=== PATIENT | male | born 1980 | race Caucasian/White ===

== ENCOUNTER 2016-07-19 | Emergency (ER) | payer MEDICAID | END 2016-07-19 10:43 | disposition home or self-care (01) ==

== ENCOUNTER 2016-08-30 10:44 | Emergency (ER) | payer MEDICAID | END 2016-08-30 12:18 | disposition home or self-care (01) | DX: Z20.2 Contact with and (suspected) exposure to infections with a predominantly sexual mode of transmission (principal); F17.200 Nicotine dependence, unspecified, uncomplicated ==

== ENCOUNTER 2016-09-20 10:22 | Emergency (ER) | payer MEDICAID ==
[2016-09-20] MEDS ORDERED: CEPHALEXIN 250 MG CAPSULE PO STA (12:01)
[2016-09-20] MEDS ORDERED: CEPHALEXIN 250 MG CAPSULE PO ONE (12:08)
== END 2016-09-20 12:23 | disposition home or self-care (01) ==
DX: N30.01 Acute cystitis with hematuria (principal); F17.200 Nicotine dependence, unspecified, uncomplicated
CPT/HCPCS: 81001; 87077; 87086; 87181; 99283; A9270

== ENCOUNTER 2017-03-08 10:31 | Emergency (ER) | payer MEDICAID ==
[2017-03-08 10:46] VITALS: BP 129/84
--- NOTE | 2017-03-08 12:30 | ED Physician Documentation ---
PD HPI UPPER EXT INJURY - Stated complaint Stated Complaint: HAND LAC - Chief complaint Chief Complaint: Laceration - History obtained from History obtained from: Patient - History of Present Illness Location: Other (36-year-old gentleman who says he is up-to-date on tetanus, he is right-handed, he accidentally stabbed himself in the left hand while cutting a zip tie earlier today at home.) Review of Systems Constitutional: reports: Reviewed and negative Cardiac: reports: Reviewed and negative Respiratory: reports: Reviewed and negative PD PAST MEDICAL HISTORY - Past Medical History Past Medical History: Yes Endocrine/Autoimmune: None : None Psych: Bipolar disorder, Panic attacks, ADD/ADHD Other Past Medical History: MMR - Past Surgical History Past Surgical History: Yes - Present Medications Home Medications: Ambulatory Orders Medication Instructions Recorded Confirmed No Known Home Medications [No 03/08/17 03/08/17 Known Home Medications] - Allergies Allergies/Adverse Reactions: Allergies Allergy/AdvReac Type Severity Reaction Status Date / Time No Known Drug Allergies Allergy Verified 03/08/17 11:06 - Social History Does the pt smoke?: Yes Smoking Status: Current every day smoker Does the pt drink ETOH?: No Does the pt have substance abuse?: Yes Substance Use and Type: Marijuana - Immunizations Immunizations are current?: No Immunizations: TDAP >10years/unknown - POLST Patient has POLST: No PD ED PE NORMAL - Vitals Vital signs reviewed: Yes - General General: Alert and oriented X 3, No acute distress - Extremities Extremities: Other (He has a 1 cm puncture/laceration to the radial side of the left thenar musculature without distal neurovascular compromise. Movement of the thumb in all 4 directions is intact.) - Neuro Neuro: Alert and oriented X 3, Normal speech - Psych Psych: Normal mood, Normal affect Results - Vitals Vitals: Vital Signs - 24 hr 03/08/17 10:43 Temperature 37.0 C Heart Rate 96 Respiratory 18 Rate Blood Pressure 129/84 H O2 Saturation 90 L Oxygen O2 Source Room air PD MEDICAL DECISION MAKING - ED course ED course: I recommended suturing the laceration, the patient refused. He did said it was not as bad as he thought it was and would not have come to the hospital. It was irrigated and Steri-Stripped. Departure - Departure Disposition: 01 Home, Self Care Clinical Impression: Puncture wound Condition: Good Record reviewed to determine appropriate education?: Yes Instructions: ED Wound Puncture General Comments: Wash with soap and water, keep it covered with a dressing. Your blood pressure was elevated today on check into the emergency department. This does not mean that you have hypertension, it is a common phenomenon to come to the emergency department and have elevated blood pressure. I recommend that she see your primary care physician within the week to have it rechecked when you are feeling better.
== END 2017-03-08 12:34 | disposition home or self-care (01) ==
LOC: ED 10:31
DX: S61.411A Laceration without foreign body of right hand, initial encounter (principal); W45.8XXA Other foreign body or object entering through skin, initial encounter; Y93.89 Activity, other specified; Y92.009 Unspecified place in unspecified non-institutional (private) residence as the place of occurrence of the external cause; F17.200 Nicotine dependence, unspecified, uncomplicated; R03.0 Elevated blood-pressure reading, without diagnosis of hypertension
CPT/HCPCS: 99282; 99283

== ENCOUNTER 2017-03-15 09:32 | Emergency (ER) | payer MEDICAID ==
[2017-03-15 09:46] VITALS: BP 126/80
--- NOTE | 2017-03-15 10:10 | ED Physician Documentation ---
PD HPI UPPER EXT INJURY - Stated complaint Stated Complaint: LEFT HAND LACERATION - Chief complaint Chief Complaint: Ext Problem - History obtained from History obtained from: Patient, Family - History of Present Illness Location: Left, Hand Type of injury: Laceration Timing - onset: How many weeks ago (1) Recently seen: Emergency Dept (1 week ago.) - Additonal information Additional information: The patient is a 36-year-old male who cut his left hand the thenar eminence musculature one week ago. He was seen in the emergency department at that time but refused suture repair. He presents today for reevaluation at the insistence of his significant other. Review of Systems Constitutional: denies: Fever Skin: reports: Laceration (s) Neurologic: denies: Focal weakness, Numbness PD PAST MEDICAL HISTORY - Past Medical History Endocrine/Autoimmune: None : None Psych: Bipolar disorder, Panic attacks, ADD/ADHD - Past Surgical History Past Surgical History: Yes - Present Medications Home Medications: Ambulatory Orders Medication Instructions Recorded Confirmed No Known Home Medications [No 03/08/17 03/08/17 Known Home Medications] - Allergies Allergies/Adverse Reactions: Allergies Allergy/AdvReac Type Severity Reaction Status Date / Time No Known Drug Allergies Allergy Verified 03/08/17 11:06 - Social History Does the pt smoke?: Yes Smoking Status: Current every day smoker Does the pt drink ETOH?: No Does the pt have substance abuse?: Yes - Immunizations Immunizations are current?: No Immunizations: TDAP >10years/unknown - POLST Patient has POLST: No PD ED PE NORMAL - Vitals Vital signs reviewed: Yes (normal) - General General: Alert and oriented X 3, Well developed/nourished - HEENT HEENT: Atraumatic - Respiratory Respiratory: No respiratory distress - Derm Derm: No rash - Extremities Extremities: Other (There is a 1.5 cm laceration at the thenar eminence of the left hand. It appears to be healing, but there is a 2-3 mm gap between the wound edges. There is no surrounding erythema or lymphangitic streaking. Distal neurovascular is intact.) - Neuro Neuro: Alert and oriented X 3, No motor deficit, No sensory deficit, Normal speech Results - Vitals Vitals: Oxygen O2 Source Room air Procedures - Laceration (location) left hand Wound type: Linear, Into subcut fat Neurovascular status: Sensory intact, Motor intact Tendon involvement: Tendon intact Skin layer closure: Steri strips Other: Patient tolerated well, No complications, Neurovascular intact, Tetanus UTD PD MEDICAL DECISION MAKING - ED course Complexity details: reviewed old records, considered differential, d/w patient, d/w family ED course: The patient presented for reassessment of whether or not his wound should undergo suture repair. Given that it is 1-week-old, and is currently healing, I recommended not suturing at this late date. I did bring the wound edges together and placed Steri-Strips across the wound. I gave the patient the remainder of the Steri-Strips on the package, so he could repeat the process at home as needed. I discussed with him and his female patient registration clerk the expected course of healing, as well as potentially worrisome signs or symptoms that should prompt reevaluation in the emergency department. Departure - Departure Disposition: 01 Home, Self Care Clinical Impression: Laceration of left hand Qualifiers: Encounter type: sequela Foreign body presence: without foreign body Qualified Code(s): S61.412S - Laceration without foreign body of left hand, sequela Condition: Stable Instructions: ED Laceration Hand Comments: Keep the wound clean. Replace Steri-Strips as needed until the wound heals. Follow-up with primary physician, or return to the emergency department, if you develop any sign of infection, or otherwise worsening symptoms. Discharge Date/Time: 03/15/17 10:14
== END 2017-03-15 10:14 | disposition home or self-care (01) ==
LOC: ED 09:32
DX: S61.412A Laceration without foreign body of left hand, initial encounter (principal); W45.8XXA Other foreign body or object entering through skin, initial encounter
CPT/HCPCS: 99283

== ENCOUNTER 2017-03-23 08:33 | Emergency (ER) | payer MEDICAID ==
--- NOTE | 2017-03-23 09:20 | ED Physician Documentation ---
PD HPI MALE - Stated complaint Stated Complaint: ABD PX - Chief complaint Chief Complaint: Abd Pain - History obtained from History obtained from: Patient - History of Present Illness Timing - onset: How many days ago (2) Timing - duration: Days (2) Timing - details: Gradual onset, Still present Associated symptoms: Unable to urinate Similar symptoms before: Has not had sx before Recently seen: Not recently seen - Additional information Additional information: Previously healthy 36-year-old male has developed acute urinary retention. He states that about 2 days ago he was not able to urinate and he has not been able to urinate or have a bowel movement since. He states the urinary retention preceded the constipation. He has not had fever he denies any discharge he denies any prior problem with his prostate. He denies taking any new medications or any medications other than ibuprofen which he took after the symptoms developed. He denies use of [id number] medications or cold preparations. Review of Systems Constitutional: denies: Fever Eyes: denies: Decreased vision Ears: denies: Ear pain Nose: denies: Congestion Throat: denies: Sore throat Cardiac: denies: Chest pain / pressure, Palpitations Respiratory: denies: Dyspnea, Cough GI: reports: Abdominal Pain, Nausea, Constipation. denies: Vomiting : reports: Unable to Void Skin: denies: Rash Musculoskeletal: reports: Back pain. denies: Neck pain, Extremity pain Neurologic: denies: Generalized weakness, Focal weakness, Numbness PD PAST MEDICAL HISTORY - Past Medical History Endocrine/Autoimmune: None : None Psych: Bipolar disorder, Panic attacks, ADD/ADHD Other Past Medical History: MMR - Past Surgical History Past Surgical History: Yes - Present Medications Home Medications: Ambulatory Orders Medication Instructions Recorded Confirmed Levofloxacin [Levaquin] 500 mg PO DAILY #10 tablet 03/23/17 - Allergies Allergies/Adverse Reactions: Allergies Allergy/AdvReac Type Severity Reaction Status Date / Time No Known Drug Allergies Allergy Verified 03/23/17 08:49 - Social History Does the pt smoke?: Yes Smoking Status: Current every day smoker Does the pt drink ETOH?: No Does the pt have substance abuse?: Yes Substance Use and Type: Marijuana - Immunizations Immunizations are current?: No Immunizations: TDAP >10years/unknown - POLST Patient has POLST: No PD ED PE NORMAL - Vitals Vital signs reviewed: Yes (Tachycardic and hypertensive) - General General: Alert and oriented X 3, Well developed/nourished, Other (The patient is laying on his side in the position and appears to be in pain with silo painter tone and flattened affect.) - HEENT HEENT: Atraumatic, PERRL, EOMI - Neck Neck: Supple, no meningeal sign - Cardiac Cardiac: No murmur, Other (Tachycardia to 110) - Respiratory Respiratory: No respiratory distress, Clear bilaterally - Abdomen Abdomen: Soft, Other (Suprapubic tenderness is significant) - Back Back: No CVA TTP, No spinal TTP - Derm Derm: Normal color, Warm and dry, No rash - Extremities Extremities: No deformity, No edema - Neuro Neuro: Alert and oriented X 3, No motor deficit, No sensory deficit, Normal speech - Psych Psych: Normal mood, Normal affect Results - Vitals Vitals: Vital Signs - 24 hr 03/23/17 03/23/17 03/23/17 08:46 10:21 11:58 Temperature 37.5 C 36.5 C 36.7 C Heart Rate 110 H 107 H 117 H Respiratory 18 16 16 Rate Blood Pressure 132/82 H 101/58 L 98/58 L O2 Saturation 96 96 98 03/23/17 12:51 Temperature 37.0 C Heart Rate 90 Respiratory 17 Rate Blood Pressure 102/58 L O2 Saturation 100 Oxygen O2 Source Room air - Labs Labs: Laboratory Tests 03/23/17 03/23/17 03/23/17 09:26 09:26 09:30 WBC 4.7 L RBC 5.58 Hgb 15.5 Hct 45.3 MCV 81.2 MCH 27.7 MCHC 34.1 RDW 13.7 Plt Count 157 MPV 8.2 Neut # 4.1 Lymph # 0.4 L [place] # 0.2 Eos # 0.0 Baso # 0.0 Absolute Nucleated RBC 0.00 Nucleated RBCs 0.0 Sodium 131 L Potassium 3.6 Chloride 98 L Carbon Dioxide 22 Anion Gap 11.0 BUN 17 Creatinine 0.9 Estimated GFR (MDRD) 96 Glucose 130 H Calcium 8.9 Total Bilirubin 1.5 H AST 32 ALT 25 Alkaline Phosphatase 47 Total Protein 6.9 Albumin 4.2 Globulin 2.7 Albumin/Globulin Ratio 1.6 Lipase 19 L Urine Color DARK YELLOW Urine Clarity HAZY Urine pH 6.0 Ur Specific [place] >=1.030 H Urine Protein NEGATIVE Urine Glucose (UA) NEGATIVE Urine Ketones 15 H Urine Occult Blood SMALL H Urine Nitrite NEGATIVE Urine Bilirubin NEGATIVE Urine Urobilinogen 0.2 (NORMAL) Ur Leukocyte Esterase NEGATIVE Urine RBC 0-5 Urine WBC 6-10 H Ur Squamous Epith Cells FEW Squamous Urine Bacteria Rare Urine Mucus Marked Strands Ur Microscopic Review INDICATED Urine Culture Comments INDICATED PD MEDICAL DECISION MAKING - ED course Complexity details: reviewed old records, reviewed results, re-evaluated patient , considered differential, d/w patient ED course: 36-year-old male with a history of urinary retention has 475 mils in his bladder on catheterization. There is evidence of infection and the patient does appear dehydrated. He is given a liter of saline intravenously and 750mg Levaquin and his Martin catheter is removed. Departure - Departure Disposition: 01 Home, Self Care Clinical Impression: Urinary tract infection Qualifiers: Urinary tract infection type: acute cystitis Hematuria presence: with hematuria Qualified Code(s): N30.01 - Acute cystitis with hematuria Condition: Stable Instructions: ED UTI Cystitis Male Follow-Up: [facility] [Provider Group] Prescriptions: Levofloxacin [Levaquin] 500 mg PO DAILY #10 tablet Comments: Today in the Emergency Department your blood pressure was elevated. This can happen from the stress of the visit itself, from a current illness or circumstance or from uncontrolled hypertension. If you take blood pressure medications take your usual mediations, have your blood pressure re-checked in an appropriate setting and follow up any elevation with your primary care doctor. Discharge Date/Time: 03/23/17 13:18
[2017-03-23 09:36] LABS: BASOPHILS % (AUTO) 0.3 %; HCT - HEMATOCRIT 45.3 % (42.0-52.0); HGB - HEMOGLOBIN 15.5 g/dL (14.0-18.0); LYMPHOCYTES # (AUTO) 0.4 10^3/uL (1.5-3.5); LYMPHOCYTES % (AUTO) 8.9 %; MEAN CORPUSCULAR HEMOGLOBIN 27.7 pg (27.0-31.0); MEAN CORPUSCULAR HGB CONC 34.1 g/dL (32.0-36.0); MEAN CORPUSCULAR VOLUME 81.2 fL (80.0-94.0); MEAN PLATELET VOLUME 8.2 fL (7.4-11.4); MONOCYTES # (AUTO) 0.2 10^3/uL (0.0-1.0); MONOCYTES % (AUTO) 4.3 %; NEUTROPHILS # (AUTO) 4.1 10^3/uL (1.5-6.6); NEUTROPHILS % (AUTO) 86.5 %; RED BLOOD COUNT 5.58 10^6/uL (4.70-6.10); RED CELL DISTRIBUTION WIDTH 13.7 % (12.0-15.0); UNCORRECTED WHITE BLOOD COUNT 4.7 x10^3/uL; WHITE BLOOD COUNT 4.7 x10^3/uL (4.8-10.8)
[2017-03-23 09:45] LABS: ALBUMIN/GLOBULIN RATIO 1.6 (1.0-2.2); BILIRUBIN,TOTAL 1.5 mg/dL (0.2-1.0); CALCIUM 8.9 mg/dL (8.5-10.3); CREATININE 0.9 mg/dL (0.6-1.2); POTASSIUM 3.6 mmol/L (3.5-5.0); TOTAL PROTEIN 6.9 g/dL (6.7-8.2)
[2017-03-23 10:07] LABS: BILIRUBIN,URINE NEGATIVE (NEGATIVE); UA w/ MICROSCOPIC CHARGE YES
[2017-03-23] MEDS ORDERED: SODIUM CHLORIDE 0.9% 1,000 ML IV ONE (10:17)
[2017-03-23 10:26] LABS: UR CULTURE IF IND INDICATED
[2017-03-23 12:52] VITALS: BP 102/58
== END 2017-03-23 13:18 | disposition home or self-care (01) ==
LOC: ED 08:33
DX: N30.01 Acute cystitis with hematuria (principal); E86.0 Dehydration; R03.0 Elevated blood-pressure reading, without diagnosis of hypertension; F17.200 Nicotine dependence, unspecified, uncomplicated
CPT/HCPCS: 36415; 51702; 51798; 80053; 81001; 81003; 83690; 85025; 87086; 96365; 99283

== ENCOUNTER 2017-03-28 16:56 | Inpatient (IN) | payer MEDICAID ==
[2017-03-28] MEDS ORDERED: SODIUM CHLORIDE 0.9% 1,000 ML IV ONE (17:14)
[2017-03-28] MEDS ORDERED: HYDROmorphone 1 MG/ML CARPUJECT IVP STA ×2 (17:14→21:02)
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
[2017-03-28] MEDS ORDERED: IOPAMIDOL-300 100 ML VIAL ONE (17:31)
[2017-03-28 17:47] LABS: BASOPHILS # (AUTO) 0.1 10^3/uL (0.0-0.1); BASOPHILS % (AUTO) 0.5 %; EOSINOPHILS % (AUTO) 0.2 %; HCT - HEMATOCRIT 39.9 % (42.0-52.0); HGB - HEMOGLOBIN 13.5 g/dL (14.0-18.0); LYMPHOCYTES # (AUTO) 1.4 10^3/uL (1.5-3.5); LYMPHOCYTES % (AUTO) 7.7 %; MEAN CORPUSCULAR HEMOGLOBIN 27.4 pg (27.0-31.0); MEAN CORPUSCULAR HGB CONC 33.8 g/dL (32.0-36.0); MEAN CORPUSCULAR VOLUME 81.3 fL (80.0-94.0); MEAN PLATELET VOLUME 7.9 fL (7.4-11.4); MONOCYTES # (AUTO) 2.1 10^3/uL (0.0-1.0); MONOCYTES % (AUTO) 11.3 %; NEUTROPHILS # (AUTO) 14.6 10^3/uL (1.5-6.6); NEUTROPHILS % (AUTO) 80.3 %; RED BLOOD COUNT 4.91 10^6/uL (4.70-6.10); RED CELL DISTRIBUTION WIDTH 13.9 % (12.0-15.0); UNCORRECTED WHITE BLOOD COUNT 18.2 x10^3/uL; WHITE BLOOD COUNT 18.2 x10^3/uL (4.8-10.8)
[2017-03-28 17:57] LABS: ALBUMIN/GLOBULIN RATIO 0.8 (1.0-2.2); BILIRUBIN,TOTAL 0.9 mg/dL (0.2-1.0); CALCIUM 8.6 mg/dL (8.5-10.3); TOTAL PROTEIN 7.1 g/dL (6.7-8.2)
[2017-03-28 18:26] LABS: PLATELET ESTIMATE, MANUAL NORMAL (130-450,000) (NORMAL); PLATELET MORPHOLOGY NORMAL APPEARANCE (NORMAL)
[2017-03-28 18:27] LABS: BAND NEUTROPHILS % (MANUAL) 28 %; LYMPHOCYTES % (MANUAL) 14 %; NEUTROPHILS % (MANUAL) 49 %; TOTAL CELLS COUNTED 100
[2017-03-28 18:28] LABS: NP AUTO DIFFERENTIAL? NO; NP MAN DIFFERENTIAL? NO
[2017-03-28 19:46] LABS: BILIRUBIN,URINE NEGATIVE (NEGATIVE)
[2017-03-28 19:47] LABS: UA w/ MICROSCOPIC CHARGE YES
[2017-03-28] MEDS ORDERED: IOPAMIDOL-300 100 ML VIAL IVP ONE (19:53)
[2017-03-28 19:55] LABS: UR CULTURE IF IND NOT INDICATED; WBC,URINE 0-3 /HPF (0-3)
--- NOTE | 2017-03-28 20:42 | CT Preliminary Report ---
Exam: CT Abdomen/Pelvis W/ IMPRESSION: Marked rectal wall thickening and infiltration of adjacent fat as described; differential considerations include proctitis with extensive surrounding cellulitis predisposed to perirectal abs cess formation, versus hematoma. [facility] SITE ID: [id number]
--- NOTE | 2017-03-28 20:45 | CT Report ---
EXAM: CT ABDOMEN AND PELVIS EXAM DATE: 03/28/2017 08:04 PM. CLINICAL HISTORY: IV contrast, rectal pain, urinary reten. COMPARISONS: None. TECHNIQUE: Routine helical CT imaging was performed through the abdomen and pelvis. IV contrast: 100 cc Isovue-300. Enteric contrast: No. Reconstructions: Coronal and sagittal. In accordance with CT protocol optimization, one or more of the following dose reduction techniques w ere utilized for this exam: automated exposure control, adjustment of mA and/or KV based on patient s ize, or use of iterative reconstructive technique. FINDINGS: Lung Bases: Unremarkable. Liver: Normal. No masses. Gallbladder/Bile Ducts: Unremarkable. Spleen: Normal. Pancreas: Normal. Adrenal Glands: Normal. Kidneys: Normal. No masses or hydronephrosis. Peritoneal Cavity/Bowel: Normal. No free fluid, free air or adenopathy. No masses or acute inflammato ry process. The appendix is well visualized and normal. Pelvic Organs: Decompressed urinary bladder with Martin catheter in place. Marked diffuse heterogeneou s wall thickening of the rectum extending to the distal sigmoid colon and measuring about 16 mm in th ickness. Ill-definition of rectal margins with extensive infiltration of adjacent fat as well as thic kening of the rectal sling. Asymmetric infiltration of fat adjacent to the anus, more on the right th an on the left. No definite drainable fluid collection. No definite muscle involvement. Vasculature: No aneurysms or other significant abnormality. Bones: No significant abnormality. Other: None. IMPRESSION: Marked rectal wall thickening and infiltration of adjacent fat as described; differential considerations include proctitis with extensive surrounding cellulitis predisposed to perirectal abs cess formation, versus hematoma. [facility] Referring Provider Line: [phone] SITE ID: [id number]
[2017-03-28] MEDS ORDERED: POTASSIUM CHLOR 10 MEQ/100 ML 10 MEQ/100 ML BAG IV ONE ×2 (20:54→21:04)
[2017-03-28] MEDS ORDERED: metroNIDAZOLE 500 MG/100 ML 500 MG/100 ML BAG IV ONE (20:55)
[2017-03-28] MEDS ORDERED: PIPERACILLIN/TAZOBACTAM 3.375 GM in SODIUM CHLORIDE 0.9% MINIBAG 100 ML IV STA (20:55)
[2017-03-28] MEDS ORDERED: SODIUM CHLORIDE 0.9% MINIBAG 100 ML IV ONE (21:05)
[2017-03-28] MEDS ORDERED: metroNIDAZOLE 500 MG/100 ML 500 MG/100 ML BAG ONE (21:05)
[2017-03-28] MEDS ORDERED: HYDROmorphone 1 MG/ML CARPUJECT ONE (21:21)
[2017-03-28] MEDS ORDERED: oxyCODONE 5 MG TABLET PO PRN (21:24)
[2017-03-28] MEDS ORDERED: ZOLPIDEM 5 MG TABLET PO PRN (21:24)
[2017-03-28] MEDS ORDERED: ONDANSETRON 4 MG/2 ML VIAL IVP PRN (21:24)
[2017-03-28] MEDS ORDERED: PROCHLORPERAZINE 10 MG/2 ML VIAL IVP PRN (21:24)
[2017-03-28] MEDS: metroNIDAZOLE 500 MG/100 ML 500 MG/100 ML BAG IV SCH (22:17)
[2017-03-28] MEDS: PIPERACILLIN/TAZOBACTAM 3.375 GM in SODIUM CHLORIDE 0.9% MINIBAG 100 ML IV SCH (22:17)
[2017-03-28] MEDS: SODIUM CHLORIDE FLUSH 0.9% 10 ML SYRINGE IVP SCH (22:24)
[2017-03-28] MEDS: NS W/20 MEQ KCL 1,000 ML IV SCH (22:24)
[2017-03-28] MEDS: NICOTINE 21 MG PATCH TOP SCH (23:15)
[2017-03-28] MEDS: oxyCODONE 5 MG TABLET PO PRN (23:57)
--- NOTE | 2017-03-29 00:38 | HISTORY & PHYSICAL EXAMINATION ---
Chief Complaint - Chief Complaint Chief Complaint: Abdominal pain History of Present Illness - Admitted From Admitted From:: Emergency department - History Obtained From Records Reviewed: Yes History obtained from: Patient Exam Limitations: None - History of Present Illness HPI Comment/Other: Patient is a 36-year-old gentleman with a past medical history significant for bipolar, ADHD and OCD who presented to the emergency department with a chief complaint of abdominal pain and urinary retention. The patient presented with similar complaints 5 days earlier and at that time was thought to have a urinary tract infection and sent home with amirah Chandler. During that presentation to the emergency department the patient also had urinary retention and needed a Martin to be placed to have his urine drained. The patient stated that symptoms initially started 2 days prior to coming into the emergency department he states initially that he had abdominal pain which was localized in the suprapubic area and then began having urinary retention over the next several days he also states that he was having rectal pain. He states that since being given the antibiotics he has found no improvement in his symptoms. He is continued to have urinary retention and has not urinated since he came into the emergency department that day. He states that the pain has become intolerable. Today he was found lying on the pavement and his parents driveway because he was in so much pain he could not even crawl to their front door. He states over the last several days he has also noticed that he has had drainage from his rectum he states that it is a reddish drainage which is sometimes bloody. He states that it is foul-smelling. The patient states that all these symptoms started just a few days after he and his girlfriend placed a sex toy up his anus and into his rectum. The patient was not clear on the sterility of the sex toy. The patient is also stated that he has been having fevers, chills and cold sweats at home the last day. The patient otherwise denies any headaches, blurred vision, runny nose, sore throat, difficulty swallowing, chest pain, shortness of breath, orthopnea, PND, wheezing, increased lower extremity swelling, nausea, vomiting, diarrhea, urinary urgency, urinary frequency, dysuria, joint pain, muscle aches, joint swelling, neck stiffness, back pain, recent unintentional weight loss, he does admit to decreased appetite but denies any focal neurologic deficits. On presentation to the emergency department the patient was tachycardic and found to have a fever of 38.1, his blood pressure was stable and he was saturating well on room air. The patient's lab work revealed a leukocytosis of 18.2 with a bandemia of 28%. The patient's chemistry also revealed that the patient was dehydrated with a sodium 130 and potassium of 3.0. The patient's urinalysis showed occult blood but no WBCs or bacteria. Looking back at his urine analysis from his recent ER visit the patient did have WBCs at that time but his culture was negative. The patient was found to have urinary retention and had a Martin placed with which she drained 3 L of urine. The patient also was found to have a indurated area around his buttocks which was tender and warm with surrounding erythema. The patient underwent a CT of his abdomen and pelvis which revealed marked rectal wall thickening and infiltration of adjacent fat with differential diagnosis being proctitis with extending surrounding cellulitis predisposed to perirectal abscess formation versus hematoma. The emergency room physician spoke with the surgeon command and control who asked that the hospitalist team admit the patient and placed the patient on IV Zosyn and Flagyl. The surgeon will see the patient in the morning for possible I&D. History - Past Medical History Cardiovascular: reports: None Respiratory: reports: None Neuro: reports: None Endocrine/Autoimmune: reports: None GI: reports: None : reports: Retention Psych: reports: Bipolar disorder, Panic attacks, ADD/ADHD MRSA Hx?: No - Past Surgical History Ortho: reports: Other (Spiral fracture of the right leg status post pinning) - Family & Social History Family History: Mother: Diabetes, Type 2, Hypertension, Father: Hyperlipidemia, Hypertension, Mental Illness Living arrangement: At home Living Situation: With family Social History Notes: Patient is originally from [facility]. The patient lives between his parents home, his 3 Girlfriends Homes and his car. 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 Patient is unmarried, does not have any children. The patient smokes 1-1/2 packs per day of cigarettes. Patient occasionally drinks beer and he does smoke marijuana daily. - Substance History Use: Uses substance without health or social issues: NONE Abuse: Recurrent use of substance despite neg consequences: NONE Dependence: Experiences withdrawal or developed tolerances: NONE - POLST Patient has POLST: No POLST Status: Full Code Meds/Allgy - Home Medications Home Medications: Ambulatory Orders Medication Instructions Recorded Confirmed Levofloxacin [Levaquin] 500 mg PO DAILY #10 tablet 03/23/17 - Allergies Allergies/Adverse Reactions: Allergies Allergy/AdvReac Type Severity Reaction Status Date / Time No Known Drug Allergies Allergy Verified 03/23/17 08:49 Review of Systems - Other Findings Other Findings: A comprehensive review of systems was performed the pertinent positives and negatives are stated above in the HPI and the remainder of the review of systems is negative. Exam - Vital Signs Reviewed Vital Signs: Yes Vital Signs: Vital Signs x48h Temp Pulse Pulse Resp BP BP Pulse Ox 03/29/17 00:32 36.2 C L 117 H 18 105/62 95 03/28/17 22:19 36.7 C 112 H 20 119/71 97 03/28/17 21:44 36.7 C 111 H 16 130/76 94 - Physical Exam General Appearance: positive: No acute distress, Alert, Other (Patient is easily distracted, initially was in a fair amount of distress due to pain from urinary retention after Martin placement patient is much more comfortable but still has to lie on his side due to pain and tenderness of his buttocks) Eyes Bilateral: positive: Normal inspection, PERRL, EOMI, No lid inflammation, Conjunctivae nml, No scleral icterus ENT: positive: ENT inspection nml, Pharynx nml, Dry mucous membranes. negative : Purulent nasal drainage, Pharyngeal erythema, Oral lesions Neck: positive: Nml inspection, Thyroid nml, No JVD, Trachea midline. negative : Thyromegaly, Lymphadenopathy (R), Lymphadenopathy (L), Stiff neck, Carotid bruit, Tracheal deviation Respiratory: positive: Chest non-tender, No respiratory distress, Breath sounds nml. negative: Wheezes, Rales, Rhonchi Cardiovascular: positive: No murmur, No gallop, Tachycardia Peripheral Pulses: positive: 2+ Abdomen: positive: No organomegaly, Nml bowel sounds, No distention, Tenderness (Suprapubic tenderness that is much improved). negative: Guarding, Rebound, Hepatomegaly Rectal: positive: Tenderness, Other (Patient has indurated area around his buttocks. Area is tender, swollen and extends into the rectal area. There is surrounding erythema and area is warm to touch. There is some serosanguineous drainage from the rectal vault.) Back: positive: Nml inspection. negative: CVA tenderness (R), CVA tenderness (L ) Skin: positive: Color nml, Warm. negative: Cyanosis, Diaphoresis, Pallor Extremities: positive: Non-tender, Full ROM, Nml appearance, No pedal edema Neurologic/Psychiatric: positive: Oriented x3, CN's nml (2-12), Motor nml, Sensation nml, Mood/affect nml Conclusion/Plan - Problem List (1) Sepsis Conclusion/Plan: Patient presented to the emergency department with urinary retention, abdominal pain and rectal pain with rectal drainage. On presentation the patient was found to have leukocytosis of 18.2 with a bandemia of 28%, he was also febrile up to 38.1 and tachycardic in the 120s. Patient's lactic acid was within normal limits and blood pressure was stable. The patient was found to have cellulitis in the perirectal area and CT of abdomen pelvis revealed marked rectal wall thickening and infiltration of adjacent fat with differential considerations including proctitis with extensive surrounding cellulitis predisposed to perirectal abscess formation versus hematoma. Patient was admitted for sepsis secondary to perirectal cellulitis and likely abscess. Plan: Patient be placed on IV Zosyn and Flagyl Patient will be given IV fluids We will continue to monitor patient's vitals closely Monitor CBC and lactate Surgery consult for possible I&D Qualifiers: Sepsis type: sepsis due to unspecified organism Qualified Code(s): A41.9 - Sepsis, unspecified organism (2) Rectal cellulitis Conclusion/Plan: Patient presented with rectal pain, serosanguineous drainage which was foul- smelling. Patient appears to have rectal cellulitis with induration around the perirectal area concerning for forming phlegmon or abscess. Patient's CT also confirms the extensive cellulitis and likely forming perirectal abscess. The patient presented with sepsis. Because of this cellulitis appears to be the use of a sex toy inserted in the patient's anus. Plan: Place patient on IV Zosyn and Flagyl Give IV fluids Surgical consult for possible I&D N.p.o. after midnight for possible I&D Pain control with oxycodone and IV Dilaudid (3) Urinary retention Conclusion/Plan: Patient has had urinary retention for the last 5 days. This is likely secondary to the severity of the patient's rectal infection and abscess which likely is compressing the patient's ureters and causing urinary retention. Plan: Martin catheter placed and will remain in place until patient's infection starts to resolve. Check PSA (4) Hypokalemia Conclusion/Plan: Patient presents with potassium of 3.0 this is likely secondary to dehydration from infection and urinary retention. Patient's potassium will be replaced with his IV fluid Monitor potassium daily (5) Hyponatremia Conclusion/Plan: Patient appears to have hypovolemic hyponatremia this is likely secondary to his sepsis and dehydration. Patient will be given IV fluids We will monitor patient's sodium. (6) Tobacco abuse Conclusion/Plan: Patient has history of tobacco abuse smokes 1-1/2 packs per day. He has requested a nicotine patch while he is hospitalized. Patient was counseled on the need to quit smoking but does not seem interested at this time. Plan: Patient counseled Placed on nicotine patch daily - Lab Results Lab results reviewed: Yes Fish Bones: 03/28/17 17:24 03/28/17 17:24 Other Lab Results: Laboratory Results WBC 18.2 x10^3/uL (4.8-10.8) H 03/28/17 17:24 RBC 4.91 10^6/uL (4.70-6.10) 03/28/17 17:24 Hgb 13.5 g/dL (14.0-18.0) L 03/28/17 17:24 Hct 39.9 % (42.0-52.0) L 03/28/17 17:24 MCV 81.3 fL (80.0-94.0) 03/28/17 17:24 MCH 27.4 pg (27.0-31.0) 03/28/17 17:24 MCHC 33.8 g/dL (32.0-36.0) 03/28/17 17:24 RDW 13.9 % (12.0-15.0) 03/28/17 17:24 Plt Count 254 10^3/uL (130-450) 03/28/17 17:24 MPV 7.9 fL (7.4-11.4) 03/28/17 17:24 Neut # 14.6 10^3/uL (1.5-6.6) H 03/28/17 17:24 Lymph # 1.4 10^3/uL (1.5-3.5) L 03/28/17 17:24 [place] # 2.1 10^3/uL (0.0-1.0) H 03/28/17 17:24 Eos # 0.0 10^3/uL (0.0-0.7) 03/28/17 17:24 Baso # 0.1 10^3/uL (0.0-0.1) 03/28/17 17:24 Absolute Nucleated RBC 0.00 x10^3/uL 03/28/17 17:24 Total Counted 100 03/28/17 17:24 Band Neuts % (Manual) 28 % (0-10) H 03/28/17 17:24 Myelocytes % 1 % (-0) H 03/28/17 17:24 Nucleated RBC % 0.0 /100WBC 03/28/17 17:24 Neutrophils # (Manual) 14.0 10^3/uL (1.5-6.6) H 03/28/17 17:24 Lymphocytes # (Manual) 2.5 10^3/uL (1.5-3.5) 03/28/17 17:24 Monocytes # (Manual) 1.5 10^3/uL (0.0-1.0) H 03/28/17 17:24 Manual Slide Review Indicated 03/28/17 17:24 Platelet Estimate NORMAL (130-450,000) (NORMAL) 03/28/17 17:24 Platelet Morphology NORMAL APPEARANCE (NORMAL) 03/28/17 17:24 RBC Morph Micro Appear NORMAL APPEARANCE (NORMAL) 03/28/17 17:24 Sodium 130 mmol/L (135-145) L 03/28/17 17:24 Potassium 3.0 mmol/L (3.5-5.0) L 03/28/17 17:24 Chloride 90 mmol/L (101-111) L 03/28/17 17:24 Carbon Dioxide 29 mmol/L (21-32) 03/28/17 17:24 Anion Gap 11.0 (6-13) 03/28/17 17:24 BUN 12 mg/dL (6-20) 03/28/17 17:24 Creatinine 1.0 mg/dL (0.6-1.2) 03/28/17 17:24 Estimated GFR (MDRD) 85 (>89) L 03/28/17 17:24 Glucose 112 mg/dL (70-100) H 03/28/17 17:24 Lactic Acid 1.1 mmol/L (0.5-2.2) 03/28/17 17:24 Calcium 8.6 mg/dL (8.5-10.3) 03/28/17 17:24 Total Bilirubin 0.9 mg/dL (0.2-1.0) 03/28/17 17:24 AST 30 IU/L (10-42) 03/28/17 17:24 ALT 24 IU/L (10-60) 03/28/17 17:24 Alkaline Phosphatase 53 IU/L (42-121) 03/28/17 17:24 Total Protein 7.1 g/dL (6.7-8.2) 03/28/17 17:24 Albumin 3.1 g/dL (3.2-5.5) L 03/28/17 17:24 Globulin 4.0 g/dL (2.1-4.2) 03/28/17 17:24 Albumin/Globulin Ratio 0.8 (1.0-2.2) L 03/28/17 17:24 Lipase 29 U/L (22-51) 03/28/17 17:24 Urine Color YELLOW 03/28/17 19:43 Urine Clarity CLEAR (CLEAR) 03/28/17 19:43 Urine pH 6.0 PH (5.0-7.5) 03/28/17 19:43 Ur Specific Gateway <=1.005 (1.002-1.030) 03/28/17 19:43 Urine Protein NEGATIVE mg/dL (NEGATIVE) 03/28/17 19:43 Urine Glucose (UA) NEGATIVE mg/dL (NEGATIVE) 03/28/17 19:43 Urine Ketones NEGATIVE mg/dL (NEGATIVE) 03/28/17 19:43 Urine Occult Blood LARGE (NEGATIVE) H 03/28/17 19:43 Urine Nitrite NEGATIVE (NEGATIVE) 03/28/17 19:43 Urine Bilirubin NEGATIVE (NEGATIVE) 03/28/17 19:43 Urine Urobilinogen 0.2 (NORMAL) E.U./dL (NORMAL) 03/28/17 19:43 Ur Leukocyte Esterase NEGATIVE (NEGATIVE) 03/28/17 19:43 Urine RBC 0-5 /HPF (0-5) 03/28/17 19:43 Urine WBC 0-3 /HPF (0-3) 03/28/17 19:43 Ur Squamous Epith Cells FEW Squamous (<= Few) 03/28/17 19:43 Urine Bacteria None Seen /HPF (None Seen) 03/28/17 19:43 Ur Microscopic Review INDICATED 03/28/17 19:43 Urine Culture Comments NOT INDICATED 03/28/17 19:43 - Diagnostic Imaging Results Diagnostic Imaging Results: positive: Final report reviewed Diagnostic Imaging Results Comments: CT abdomen pelvis Impression: Marked rectal wall thickening and infiltration of adjacent fat as described; differential considerations include prostatitis with extensive surrounding cellulitis predisposed to perirectal abscess formation, versus hematoma. Issues/Core Measures - Anticipated LOS Anticipated Stay Length: 2 or more midnights - DVT/VTE - Prophylaxis VTE/DVT Prophylaxis med ordered at admit?: Yes
[2017-03-29] MEDS: HYDROmorphone 1 MG/ML CARPUJECT IVP PRN ×8 (01:46→20:49)
[2017-03-29] MEDS: metroNIDAZOLE 500 MG/100 ML 500 MG/100 ML BAG IV SCH (03:37)
[2017-03-29] MEDS: PIPERACILLIN/TAZOBACTAM 3.375 GM in SODIUM CHLORIDE 0.9% MINIBAG 100 ML IV SCH ×3 (04:39→19:09)
[2017-03-29] MEDS: NS W/20 MEQ KCL 1,000 ML IV SCH ×3 (05:36→22:57)
[2017-03-29] MEDS: SODIUM CHLORIDE FLUSH 0.9% 10 ML SYRINGE IVP SCH ×3 (05:41→20:50)
[2017-03-29 06:40] LABS: HGB - HEMOGLOBIN 13.1 g/dL (14.0-18.0)
[2017-03-29 06:42] LABS: HCT - HEMATOCRIT 38.8 % (42.0-52.0); MEAN CORPUSCULAR HEMOGLOBIN 27.4 pg (27.0-31.0); MEAN CORPUSCULAR HGB CONC 33.7 g/dL (32.0-36.0); MEAN CORPUSCULAR VOLUME 81.2 fL (80.0-94.0); MEAN PLATELET VOLUME 7.3 fL (7.4-11.4); RED BLOOD COUNT 4.78 10^6/uL (4.70-6.10); RED CELL DISTRIBUTION WIDTH 14.3 % (12.0-15.0); WHITE BLOOD COUNT 17.6 x10^3/uL (4.8-10.8)
[2017-03-29 06:58] LABS: ALBUMIN/GLOBULIN RATIO 0.9 (1.0-2.2); BILIRUBIN,TOTAL 0.8 mg/dL (0.2-1.0); BUN - BLOOD UREA NITROGEN 8 mg/dL (6-20); CALCIUM 8.2 mg/dL (8.5-10.3); CARBON DIOXIDE - CO2 29 mmol/L (21-32); CHLORIDE 96 mmol/L (101-111); CREATININE 0.8 mg/dL (0.6-1.2); GFR - MDRD 110 (>89); GLUCOSE 105 mg/dL (70-100); PHOSPHORUS 3.4 mg/dL (2.5-4.6); POTASSIUM 3.1 mmol/L (3.5-5.0); SODIUM 134 mmol/L (135-145); TOTAL PROTEIN 6.2 g/dL (6.7-8.2)
[2017-03-29] MEDS ORDERED: VANCOMYCIN PER PHARMACY 1 GM in SODIUM CHLORIDE 0.9% 250 ML IV SCH (07:00)
[2017-03-29] MEDS ORDERED: VANCOMYCIN INJ 1 GM in SODIUM CHLORIDE 0.9% 250 ML IV SCH ×2 (07:00→15:00)
[2017-03-29 07:35] LABS: PSA FREE 0.08 ng/mL (0.16-2.81)
[2017-03-29 07:36] LABS: PSA TOTAL 0.8 ng/mL (0.000-2.000)
[2017-03-29] MEDS: SODIUM CHLORIDE FLUSH 0.9% 10 ML SYRINGE IVP PRN ×3 (07:53→21:46)
[2017-03-29 08:18] LABS: CALCIUM, IONIZED 1.07 mmol/L (1.15-1.33); VBG PH 7.437 (7.31-7.41)
[2017-03-29] MEDS ORDERED: POTASSIUM CHLOR 10 MEQ/100 ML 10 MEQ/100 ML BAG IV ONE (08:55)
[2017-03-29] MEDS ORDERED: POTASSIUM CHLORIDE 20 MEQ TABLET PO SCH (09:00)
[2017-03-29] MEDS ORDERED: TEMAZEPAM 7.5 MG CAPSULE PO PRN (09:10)
[2017-03-29] MEDS: NICOTINE 21 MG PATCH TOP SCH (10:52)
[2017-03-29] MEDS: POLYETHYLENE GLYCOL 3350 17 GM PACKET PO SCH ×2 (10:56→10:58)
[2017-03-29] MEDS: ENOXAPARIN 40 MG/0.4 ML SYRINGE SUBQ SCH (10:56)
[2017-03-29] MEDS: FAMOTIDINE 20 MG TABLET PO SCH (11:01)
--- NOTE | 2017-03-29 12:42 | CONSULTATION NOTE ---
DATE OF CONSULTATION: 03/28/2017 00:00:00 REASON FOR CONSULTATION: Gluteal cellulitis. HISTORY OF PRESENT ILLNESS: This is a 36-year-old male who presented to the emergency department yesterday complaining of inability to urinate and perirectal pain. The patient was seen in the emergency department approximately 1 week ago complaining of the inability to urinate. The patient catheterized at that time and a UA performed, and he was noted to have a UTI and discharged on antibiotics. He was not compliant with his antibiotics and states that he only took 3 or 4 days of them. He began developing worsening perirectal pain, fevers and chills and a small amount of rectal bleeding and again sought attention in the emergency department. Upon reevaluation, he was noted to have a significant amount of perirectal erythema and cellulitis, particularly in the right gluteal fold. Subsequently, labs and CT scan were performed. This demonstrated an elevated white count of [address] scan findings demonstrated thickening of the rectal wall up to the level of the distal sigmoid colon with infiltration of adjacent fat. No drainable fluid collection or abscess was noted. At this point , a surgical consultation was obtained. Upon my evaluation of the patient, he states that since his admission to the hospital overnight, he is feeling better. A Martin catheter was placed and this has caused relief of his pelvic discomfort. He continues to have mild to moderate gluteal discomfort. The area of erythema has been demarcated in the emergency department. Upon further questioning, the patient does states that prior to his initial ER visit, he was having sex with his girlfriend and his girlfriend placed a silicone dildo in his anus. He had a mild amount of pain with this, but nothing severe, and did not experience any bleeding afterwards. This apparently took place approximately 10-12 days ago. PAST MEDICAL HISTORY: Significant for bipolar and ADHD, although he is not compliant with medications. PAST SURGICAL HISTORY: Denies. SOCIAL HISTORY: Unmarried. His mother is present at the bedside. 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 He denies alcohol use. He smokes marijuana daily. HOME MEDICATIONS: None. PHYSICAL EXAMINATION VITAL SIGNS: Temperature is 36.8, blood pressure 125/63, heart rate 119, respiratory rate is 18, O2 saturation 96% on room air. GENERAL: The patient is awake, alert, oriented x3, in no acute distress. He is of average build. CARDIOVASCULAR: Sinus tachycardia. CHEST: Clear to auscultation bilaterally with no rhonchi or wheezing. ABDOMEN: Soft, nondistended, nontender to palpation. He has very mild pelvic tenderness, but no guarding and no rigidity. There are no peritoneal signs. EXTREMITIES: Nonedematous. RECTAL: Exam reveals a markedly inflamed right gluteal fold with blanching erythema. The area of erythema is within the demarcated lines from the emergency department. Inspection of the anus reveals no involvement of the anal verge. The perineum is free of any erythema and is nontender to palpation. Palpation of the gluteal fold does not elicit any crepitance or fluctuance and it is only mildly tender to palpation. LABORATORY VALUES: White blood cell count is 17.6, down from 18.2 on admission. Hemoglobin 13.1, hematocrit 38.8, platelets 258. Sodium 134, potassium 3.1, chloride 96, bicarbonate 29, BUN 8, creatinine 0.8, lactic acid 1.1 followed by 0.7 today. UA is positive for blood, but negative for leukocyte esterase or white blood cells. ASSESSMENT: This is a 36-year-old male with perigluteal cellulitis. PLAN: The patient should be continued on broad spectrum IV antibiotics including Zosyn and Flagyl, as well as rectal enemas with Flagyl. Once the inflammation subsides, the urinary retention should resolve. We will continue to monitor the progress of the cellulitis and if he improves on antibiotics alone, he would be able to be discharged with a course of oral antibiotics. If there is concern for progression into abscess formation, surgical intervention would be warranted at that time. He is on a bowel protocol as he has not had a bowel movement reportedly in 11 days. Given the time since the history of a possible rectal injury, I do not feel that any evaluation with a sigmoidoscopy is necessary at this time; however, if the patient fails to improve this may be warranted to rule out full thickness rectal injury. The patient will continue to be followed by the surgical service. JOB #: [id number] EXT JOB #:[id number] [facility]ITALJacqueline
[2017-03-29] MEDS: oxyCODONE 5 MG TABLET PO PRN ×2 (13:07→18:38)
[2017-03-29] MEDS: metroNIDAZOLE 500 PREMIX RC SCH ×2 (14:36→17:57)
--- NOTE | 2017-03-29 17:16 | PROVIDER PROGRESS NOTE ---
Subjective - Prog Note Date Prog Note Date: 03/29/17 - Subjective Pt reports feeling: Improved Subjective: pt report he feel much better, pain is reduced, no more fever. No chest pain, shortness of breathing, abdominal pain. Current Medications - Current Medications Current Medications: Active Medications Acetaminophen (Tylenol) 650 mg PO Q4HR PRN PRN Reason: Pain 1 to 4 Enoxaparin Sodium (Lovenox) 40 mg SUBQ DAILY [facility] Last Admin: 03/29/17 10:56 Dose: 40 mg Famotidine (Pepcid) 20 mg PO DAILY [facility] Last Admin: 03/29/17 11:01 Dose: 20 mg Hydromorphone HCl (Dilaudid Inj Carp) 1 mg IVP Q2HR PRN PRN Reason: Pain 8 to 10 Last Admin: 03/29/17 16:57 Dose: 1 mg Piperacillin Sod/Tazobactam (Sod 3.375 gm/ Sodium Chloride) 100 mls @ 200 mls/ hr IV Q6H [facility] Last Infusion: 03/29/17 11:22 Dose: Infused Potassium Chloride/Sodium Chloride (Normal Saline 0.9% W/20 Meq Kcl) 1,000 mls @ 150 mls/hr IV .Q6H40M [facility] Last Infusion: 03/29/17 15:51 Dose: Infused Vancomycin HCl 1 gm/ Sodium (Chloride) 250 mls @ 167 mls/hr IV Q8H [facility] Last Admin: 03/29/17 16:58 Dose: 167 mls/hr Metronidazole (Flagyl 500 Mg/100 Ml) 500 mg RC TID [facility] Last Admin: 03/29/17 14:36 Dose: 500 mg Nicotine (Nicoderm) 1 patch TOP DAILY [facility] Last Admin: 03/29/17 10:52 Dose: 1 patch Ondansetron HCl (Zofran Inj) 4 mg IVP Q6HR PRN PRN Reason: Nausea / Vomiting Oxycodone HCl (Roxicodone) 5 mg PO Q4HR PRN PRN Reason: Pain 5 to 7 Oxycodone HCl (Roxicodone) 10 mg PO Q4HR PRN PRN Reason: Pain 8 to 10 Last Admin: 03/29/17 13:07 Dose: 10 mg Polyethylene Glycol (Miralax) 17 gm PO DAILY [facility] Last Admin: 03/29/17 10:58 Dose: 17 gm Prochlorperazine Edisylate (Compazine Inj) 10 mg IVP Q6HR PRN PRN Reason: Nausea / Vomiting Sodium Chloride (Normal Saline Flush 0.9%) 10 ml IVP PRN PRN PRN Reason: NEEDED PER PROVIDER ORDERS Last Admin: 03/29/17 07:53 Dose: 10 ml Sodium Chloride (Normal Saline Flush 0.9%) 10 ml IVP Q8HR [facility] Last Admin: 03/29/17 16:32 Dose: Not Given Temazepam (Restoril) 7.5 mg PO QPM PRN PRN Reason: Insomnia Zolpidem Tartrate (Ambien) 5 mg PO QPM PRN PRN Reason: Insomnia Last Admin: 03/28/17 23:56 Dose: 5 mg Objective - Vital Signs/Intake & Output Reviewed Vital Signs: Yes Vital Signs: Vital Signs x48h Temp Pulse Resp BP Pulse Ox 03/29/17 16:25 36.8 C 116 H 16 117/81 H 97 Intake & Output: Intake & Output 03/26/17 03/27/17 03/28/17 03/29/17 23:59 23:59 23:59 23:59 Intake Total 200 1240 Output Total 1850 2325 Balance -1650 -1085 - Objective General Appearance: positive: No acute distress, Alert. negative: Lethargic Eyes Bilateral: positive: Normal inspection, PERRL, EOMI, No lid inflammation, Conjunctivae nml ENT: positive: ENT inspection nml, Pharynx nml, No signs of dehydration, Purulent nasal drainage, Pharyngeal erythema, Oral lesions Neck: positive: Nml inspection, Thyroid nml, No JVD, Trachea midline. negative : Thyromegaly, Lymphadenopathy (R), Lymphadenopathy (L), Stiff neck, Swelling/ bruising, Tracheal deviation Respiratory: positive: Chest non-tender, No respiratory distress, Breath sounds nml. negative: Wheezes, Rales, Rhonchi Cardiovascular: positive: Regular rate & rhythm, No murmur, No gallop. negative : Irregularly irregular, Extrasystoles, Tachycardia, Bradycardia, Systolic murmur, Diastolic murmur Peripheral Pulses: 2+ Radial (R), 2+ Radial (L), 2+ Dorsalis pedis (R), 2+ Dorsalis pedis (L) Abdomen: positive: Non-tender, Nml bowel sounds, No distention. negative: Tenderness, Guarding, Rebound Rectal: positive: Tenderness. negative: Black stool, Bloody stool Back: positive: Nml inspection. negative: CVA tenderness (R), CVA tenderness (L ) Skin: positive: Color nml, No rash, Warm, Dry. negative: Cyanosis, Diaphoresis , Pallor, Embolic lesions Extremities: positive: Non-tender, Full ROM, Nml appearance. negative: Pedal edema, Calf tenderness, Rachel's sign/cords Neurologic/Psychiatric: positive: Oriented x3, Motor nml, Sensation nml. negative: Sensory loss, Facial droop, Slurred/abnml speech, Depressed mood/ affect - Lab Results Fish Bones: 03/29/17 06:30 03/29/17 06:30 Other Labs: Lab Results x24hrs 03/29/17 03/29/17 03/29/17 Range/Units 06:30 06:30 06:30 WBC (4.8-10.8) x10^3/uL RBC (4.70-6.10) 10^6/uL Hgb (14.0-18.0) g/dL Hct (42.0-52.0) % MCV (80.0-94.0) fL MCH (27.0-31.0) pg MCHC (32.0-36.0) g/dL RDW (12.0-15.0) % Plt Count (130-450) 10^3/uL MPV (7.4-11.4) fL ESR 21 H (0-15) mm/Hr VBG pH 7.437 H (7.31-7.41) Ionized Calcium 1.07 L (1.15-1.33) mmol/L Sodium (135-145) mmol/L Potassium (3.5-5.0) mmol/L Chloride (101-111) mmol/L Carbon Dioxide (21-32) mmol/L Anion Gap (6-13) BUN (6-20) mg/dL Creatinine (0.6-1.2) mg/dL Estimated GFR (MDRD) (>89) Glucose (70-100) mg/dL Lactic Acid (0.5-2.2) mmol/L Calcium (8.5-10.3) mg/dL Phosphorus (2.5-4.6) mg/dL Magnesium (1.7-2.8) mg/dL Total Bilirubin (0.2-1.0) mg/dL AST (10-42) IU/L ALT (10-60) IU/L Alkaline Phosphatase (42-121) IU/L C-Reactive Protein 20.5 H (0-1.0) mg/dL Total Protein (6.7-8.2) g/dL Albumin (3.2-5.5) g/dL Globulin (2.1-4.2) g/dL Albumin/Globulin Ratio (1.0-2.2) Prostate Specific Ag (0.000-2.000) ng/mL Free PSA (0.16-2.81) ng/mL % Free PSA Calc (25-100) % 03/29/17 03/29/17 03/29/17 Range/Units 06:30 06:30 06:30 WBC (4.8-10.8) x10^3/uL RBC (4.70-6.10) 10^6/uL Hgb (14.0-18.0) g/dL Hct (42.0-52.0) % MCV (80.0-94.0) fL MCH (27.0-31.0) pg MCHC (32.0-36.0) g/dL RDW (12.0-15.0) % Plt Count (130-450) 10^3/uL MPV (7.4-11.4) fL ESR (0-15) mm/Hr VBG pH (7.31-7.41) Ionized Calcium YES (1.15-1.33) mmol/L Sodium 134 L (135-145) mmol/L Potassium 3.1 L (3.5-5.0) mmol/L Chloride 96 L (101-111) mmol/L Carbon Dioxide 29 (21-32) mmol/L Anion Gap 9.0 (6-13) BUN 8 (6-20) mg/dL Creatinine 0.8 (0.6-1.2) mg/dL Estimated GFR (MDRD) 110 (>89) Glucose 105 H (70-100) mg/dL Lactic Acid 0.7 (0.5-2.2) mmol/L Calcium 8.2 L (8.5-10.3) mg/dL Phosphorus 3.4 (2.5-4.6) mg/dL Magnesium 2.0 (1.7-2.8) mg/dL Total Bilirubin 0.8 (0.2-1.0) mg/dL AST 28 (10-42) IU/L ALT 26 (10-60) IU/L Alkaline Phosphatase 48 (42-121) IU/L C-Reactive Protein (0-1.0) mg/dL Total Protein 6.2 L (6.7-8.2) g/dL Albumin 2.9 L (3.2-5.5) g/dL Globulin 3.3 (2.1-4.2) g/dL Albumin/Globulin Ratio 0.9 L (1.0-2.2) Prostate Specific Ag 0.800 (0.000-2.000) ng/mL Free PSA 0.080 L (0.16-2.81) ng/mL % Free PSA Calc 10 L (25-100) % 03/29/17 Range/Units 06:30 WBC 17.6 H (4.8-10.8) x10^3/uL RBC 4.78 (4.70-6.10) 10^6/uL Hgb 13.1 L (14.0-18.0) g/dL Hct 38.8 L (42.0-52.0) % MCV 81.2 (80.0-94.0) fL MCH 27.4 (27.0-31.0) pg MCHC 33.7 (32.0-36.0) g/dL RDW 14.3 (12.0-15.0) % Plt Count 258 (130-450) 10^3/uL MPV 7.3 L (7.4-11.4) fL ESR (0-15) mm/Hr VBG pH (7.31-7.41) Ionized Calcium (1.15-1.33) mmol/L Sodium (135-145) mmol/L Potassium (3.5-5.0) mmol/L Chloride (101-111) mmol/L Carbon Dioxide (21-32) mmol/L Anion Gap (6-13) BUN (6-20) mg/dL Creatinine (0.6-1.2) mg/dL Estimated GFR (MDRD) (>89) Glucose (70-100) mg/dL Lactic Acid (0.5-2.2) mmol/L Calcium (8.5-10.3) mg/dL Phosphorus (2.5-4.6) mg/dL Magnesium (1.7-2.8) mg/dL Total Bilirubin (0.2-1.0) mg/dL AST (10-42) IU/L ALT (10-60) IU/L Alkaline Phosphatase (42-121) IU/L C-Reactive Protein (0-1.0) mg/dL Total Protein (6.7-8.2) g/dL Albumin (3.2-5.5) g/dL Globulin (2.1-4.2) g/dL Albumin/Globulin Ratio (1.0-2.2) Prostate Specific Ag (0.000-2.000) ng/mL Free PSA (0.16-2.81) ng/mL % Free PSA Calc (25-100) % Assessment/Plan - Problem List (1) Sepsis Impression: (1) Sepsis Conclusion/Plan: pt feel much better, no fever, WBC is slightly down to 17.6, lactic acid is down from 1 down to 0.7 continue zosyn and vancomycin follow up blood and wound culture IVF daily lab test, vital monitor Patient presented to the emergency department with urinary retention, abdominal pain and rectal pain with rectal drainage. On presentation the patient was found to have leukocytosis of 18.2 with a bandemia of 28%, he was also febrile up to 38.1 and tachycardic in the 120s. Patient's lactic acid was within normal limits and blood pressure was stable. The patient was found to have cellulitis in the perirectal area and CT of abdomen pelvis revealed marked rectal wall thickening and infiltration of adjacent fat with differential considerations including proctitis with extensive surrounding cellulitis predisposed to perirectal abscess formation versus hematoma. Patient was admitted for sepsis secondary to perirectal cellulitis and likely abscess. Plan: Patient be placed on IV Zosyn and Flagyl Patient will be given IV fluids We will continue to monitor patient's vitals closely Monitor CBC and lactate Surgery consult for possible I&D Qualifiers: Sepsis type: sepsis due to unspecified organism Qualified Code(s): A41.9 - Sepsis, unspecified organism (2) Rectal cellulitis Conclusion/Plan: surgeon saw pt, will follow up, now pt has enemas with Flagyl continue pain control surgeon recommend no urgent procedure, pt begin to have diet Patient presented with rectal pain, serosanguineous drainage which was foul- smelling. Patient appears to have rectal cellulitis with induration around the perirectal area concerning for forming phlegmon or abscess. Patient's CT also confirms the extensive cellulitis and likely forming perirectal abscess. The patient presented with sepsis. Because of this cellulitis appears to be the use of a sex toy inserted in the patient's anus. Plan: Place patient on IV Zosyn and Flagyl Give IV fluids Surgical consult for possible I&D N.p.o. after midnight for possible I&D Pain control with oxycodone and IV Dilaudid (3) Urinary retention Conclusion/Plan: PSA reviewed, unremarkable remain lopez now until infection controlled Patient has had urinary retention for the last 5 days. This is likely secondary to the severity of the patient's rectal infection and abscess which likely is compressing the patient's ureters and causing urinary retention. Plan: Lopez catheter placed and will remain in place until patient's infection starts to resolve. Check PSA (4) Hypokalemia Conclusion/Plan: slight increase to 3.1, add potassium IV and PO Patient presents with potassium of 3.0 this is likely secondary to dehydration from infection and urinary retention. Patient's potassium will be replaced with his IV fluid Monitor potassium daily (5) Hyponatremia Conclusion/Plan: Na upto 134, continue IVF NS Patient appears to have hypovolemic hyponatremia this is likely secondary to his sepsis and dehydration. Patient will be given IV fluids We will monitor patient's sodium. (6) Tobacco abuse Conclusion/Plan: continue nicotin patch, advise pt quit smoking cigarette. Patient has history of tobacco abuse smokes 1-1/2 packs per day. He has requested a nicotine patch while he is hospitalized. Patient was counseled on the need to quit smoking but does not seem interested at this time. Qualifiers: Sepsis type: sepsis due to unspecified organism Qualified Code(s): A41.9 - Sepsis, unspecified organism
[2017-03-29] MEDS: SENNA 8.6 MG TABLET PO SCH (20:49)
[2017-03-29] MEDS: DOCUSATE SODIUM 250 MG CAPSULE PO SCH (20:49)
[2017-03-29] MEDS ORDERED: MIN OIL/DIMETHICON/COCONUT OIL 92 GM TUBE TOP ONE (20:50)
[2017-03-29] MEDS: ACETAMINOPHEN 325 MG TABLET PO PRN (21:05)
[2017-03-30] MEDS: oxyCODONE 5 MG TABLET PO PRN ×4 (00:46→19:35)
[2017-03-30] MEDS: NS W/20 MEQ KCL 1,000 ML IV SCH ×3 (00:52→20:23)
[2017-03-30] MEDS ORDERED: VANCOMYCIN INJ 1 GM in SODIUM CHLORIDE 0.9% 250 ML IV SCH (01:00)
[2017-03-30] MEDS: HYDROmorphone 1 MG/ML CARPUJECT IVP PRN ×8 (01:33→22:22)
[2017-03-30] MEDS: PIPERACILLIN/TAZOBACTAM 3.375 GM in SODIUM CHLORIDE 0.9% MINIBAG 100 ML IV SCH ×3 (01:34→17:46)
[2017-03-30] MEDS: SODIUM CHLORIDE FLUSH 0.9% 10 ML SYRINGE IVP PRN ×3 (04:07→22:20)
[2017-03-30] MEDS: SODIUM CHLORIDE FLUSH 0.9% 10 ML SYRINGE IVP SCH ×3 (04:08→19:36)
[2017-03-30 05:48] LABS: HCT - HEMATOCRIT 37.1 % (42.0-52.0); HGB - HEMOGLOBIN 12.7 g/dL (14.0-18.0); MEAN CORPUSCULAR HEMOGLOBIN 28.1 pg (27.0-31.0); MEAN CORPUSCULAR HGB CONC 34.2 g/dL (32.0-36.0); MEAN CORPUSCULAR VOLUME 82.3 fL (80.0-94.0); MEAN PLATELET VOLUME 7.6 fL (7.4-11.4); RED BLOOD COUNT 4.51 10^6/uL (4.70-6.10); RED CELL DISTRIBUTION WIDTH 14.1 % (12.0-15.0); WHITE BLOOD COUNT 18.6 x10^3/uL (4.8-10.8)
[2017-03-30 06:21] LABS: ALBUMIN/GLOBULIN RATIO 0.8 (1.0-2.2); BILIRUBIN,TOTAL 0.7 mg/dL (0.2-1.0); BUN - BLOOD UREA NITROGEN 6 mg/dL (6-20); CALCIUM 7.8 mg/dL (8.5-10.3); CARBON DIOXIDE - CO2 29 mmol/L (21-32); CHLORIDE 93 mmol/L (101-111); CREATININE 0.8 mg/dL (0.6-1.2); GFR - MDRD 110 (>89); GLUCOSE 114 mg/dL (70-100); MAGNESIUM 1.8 mg/dL (1.7-2.8); PHOSPHORUS 3.4 mg/dL (2.5-4.6); POTASSIUM 3.5 mmol/L (3.5-5.0); SODIUM 132 mmol/L (135-145); TOTAL PROTEIN 5.7 g/dL (6.7-8.2)
[2017-03-30 06:37] LABS: CALCIUM, IONIZED 1.06 mmol/L (1.15-1.33); VBG PH 7.449 (7.31-7.41)
[2017-03-30] MEDS: NICOTINE 21 MG PATCH TOP SCH (09:11)
[2017-03-30] MEDS: ENOXAPARIN 40 MG/0.4 ML SYRINGE SUBQ SCH (09:14)
[2017-03-30] MEDS: DOCUSATE SODIUM 250 MG CAPSULE PO SCH (09:17)
[2017-03-30] MEDS: SENNA 8.6 MG TABLET PO SCH (09:18)
[2017-03-30] MEDS: FAMOTIDINE 20 MG TABLET PO SCH (09:18)
--- NOTE | 2017-03-30 09:22 | PROVIDER PROGRESS NOTE ---
Subjective - Prog Note Date Prog Note Date: 03/30/17 - Subjective Pt reports feeling: No change Subjective: I called PICC/central line provider, he will come to do central line to pt. I called surgeon Remi, he will come to see pt. Current Medications - Current Medications Current Medications: Active Medications Acetaminophen (Tylenol) 650 mg PO Q4HR PRN PRN Reason: Pain 1 to 4 Last Admin: 03/29/17 21:05 Dose: 650 mg Docusate Sodium (Colace 250mg Capsule) 250 - 500 mg PO DAILY [facility] Last Admin: 03/30/17 09:17 Dose: 250 mg Enoxaparin Sodium (Lovenox) 40 mg SUBQ DAILY [facility] Last Admin: 03/30/17 09:14 Dose: 40 mg Famotidine (Pepcid) 20 mg PO DAILY [facility] Last Admin: 03/30/17 09:18 Dose: 20 mg Hydromorphone HCl (Dilaudid Inj Carp) 1 mg IVP Q2HR PRN PRN Reason: Pain 8 to 10 Last Admin: 03/30/17 11:03 Dose: 1 mg Potassium Chloride/Sodium Chloride (Normal Saline 0.9% W/20 Meq Kcl) 1,000 mls @ 150 mls/hr IV .Q6H40M [facility] Last Infusion: 03/30/17 07:00 Dose: 0 mls/hr Piperacillin Sod/Tazobactam (Sod 3.375 gm/ Sodium Chloride) 100 mls @ 200 mls/ hr IV Q6H [facility] Vancomycin HCl 1 gm/ Sodium (Chloride) 250 mls @ 167 mls/hr IV Q8H [facility] Nicotine (Nicoderm) 1 patch TOP DAILY [facility] Last Admin: 03/30/17 09:11 Dose: 1 patch Ondansetron HCl (Zofran Inj) 4 mg IVP Q6HR PRN PRN Reason: Nausea / Vomiting Oxycodone HCl (Roxicodone) 5 mg PO Q4HR PRN PRN Reason: Pain 5 to 7 Oxycodone HCl (Roxicodone) 10 mg PO Q4HR PRN PRN Reason: Pain 8 to 10 Last Admin: 03/30/17 07:07 Dose: 10 mg Polyethylene Glycol (Miralax) 17 gm PO DAILY [facility] Last Admin: 03/29/17 10:58 Dose: 17 gm Prochlorperazine Edisylate (Compazine Inj) 10 mg IVP Q6HR PRN PRN Reason: Nausea / Vomiting Senna (Senokot) 8.6 - 17.2 mg PO DAILY [facility] Last Admin: 03/30/17 09:18 Dose: 8.6 mg Sodium Chloride (Normal Saline Flush 0.9%) 10 ml IVP Q8HR [facility] Last Admin: 03/30/17 04:08 Dose: 10 ml Sodium Chloride (Normal Saline Flush 0.9%) 10 ml IVP PRN PRN PRN Reason: NEEDED PER PROVIDER ORDERS Temazepam (Restoril) 7.5 mg PO QPM PRN PRN Reason: Insomnia Zolpidem Tartrate (Ambien) 5 mg PO QPM PRN PRN Reason: Insomnia Last Admin: 03/28/17 23:56 Dose: 5 mg Objective - Vital Signs/Intake & Output Reviewed Vital Signs: Yes Vital Signs: Vital Signs x48h Temp Pulse Resp BP Pulse Ox 03/30/17 08:34 37.2 C 102 H 17 115/53 L 97 Intake & Output: Intake & Output 03/27/17 03/28/17 03/29/17 03/30/17 23:59 23:59 23:59 23:59 Intake Total 200 1840 2100 Output Total 1850 3925 1950 Balance -1650 -2085 150 - Objective General Appearance: positive: No acute distress, Alert. negative: Lethargic Eyes Bilateral: positive: Normal inspection, PERRL, EOMI, No lid inflammation, Conjunctivae nml ENT: positive: ENT inspection nml, Pharynx nml, No signs of dehydration. negative: Purulent nasal drainage, Pharyngeal erythema, Oral lesions Neck: positive: Nml inspection, Thyroid nml, Trachea midline. negative: Thyromegaly, Lymphadenopathy (R), Lymphadenopathy (L), Stiff neck, Swelling/ bruising, Tracheal deviation Respiratory: positive: Chest non-tender, No respiratory distress, Breath sounds nml. negative: Wheezes, Rales, Rhonchi Cardiovascular: positive: Regular rate & rhythm, No murmur, No gallop, Irregularly irregular. negative: Extrasystoles, Tachycardia, Bradycardia, Systolic murmur, Diastolic murmur Peripheral Pulses: 2+ Radial (R), 2+ Radial (L), 2+ Dorsalis pedis (R), 2+ Dorsalis pedis (L) Abdomen: positive: Non-tender, Nml bowel sounds, No distention. negative: Tenderness, Guarding, Rebound Rectal: positive: Tenderness Back: positive: Nml inspection. negative: CVA tenderness (R), CVA tenderness (L ) Skin: positive: Color nml, No rash, Warm, Dry. negative: Cyanosis, Diaphoresis , Pallor, Skin rash Extremities: positive: Non-tender, Full ROM, Nml appearance. negative: Calf tenderness, Rachel's sign/cords Neurologic/Psychiatric: positive: Oriented x3, Motor nml, Sensation nml. negative: Sensory loss, Facial droop, Slurred/abnml speech, Depressed mood/ affect - Lab Results Fish Bones: 03/30/17 05:36 03/30/17 05:36 Other Labs: Lab Results x24hrs 03/30/17 03/30/17 03/30/17 Range/Units 05:36 05:36 05:36 WBC (4.8-10.8) x10^3/uL RBC (4.70-6.10) 10^6/uL Hgb (14.0-18.0) g/dL Hct (42.0-52.0) % MCV (80.0-94.0) fL MCH (27.0-31.0) pg MCHC (32.0-36.0) g/dL RDW (12.0-15.0) % Plt Count (130-450) 10^3/uL MPV (7.4-11.4) fL ESR 21 H (0-15) mm/Hr VBG pH 7.449 H (7.31-7.41) Ionized Calcium 1.06 L YES (1.15-1.33) mmol/L Sodium 132 L (135-145) mmol/L Potassium 3.5 (3.5-5.0) mmol/L Chloride 93 L (101-111) mmol/L Carbon Dioxide 29 (21-32) mmol/L Anion Gap 10.0 (6-13) BUN 6 (6-20) mg/dL Creatinine 0.8 (0.6-1.2) mg/dL Estimated GFR (MDRD) 110 (>89) Glucose 114 H (70-100) mg/dL Calcium 7.8 L (8.5-10.3) mg/dL Phosphorus 3.4 (2.5-4.6) mg/dL Magnesium 1.8 (1.7-2.8) mg/dL Total Bilirubin 0.7 (0.2-1.0) mg/dL AST 29 (10-42) IU/L ALT 22 (10-60) IU/L Alkaline Phosphatase 52 (42-121) IU/L C-Reactive Protein 25.1 H (0-1.0) mg/dL Total Protein 5.7 L (6.7-8.2) g/dL Albumin 2.6 L (3.2-5.5) g/dL Globulin 3.1 (2.1-4.2) g/dL Albumin/Globulin Ratio 0.8 L (1.0-2.2) 03/30/17 Range/Units 05:36 WBC 18.6 H (4.8-10.8) x10^3/uL RBC 4.51 L (4.70-6.10) 10^6/uL Hgb 12.7 L (14.0-18.0) g/dL Hct 37.1 L (42.0-52.0) % MCV 82.3 (80.0-94.0) fL MCH 28.1 (27.0-31.0) pg MCHC 34.2 (32.0-36.0) g/dL RDW 14.1 (12.0-15.0) % Plt Count 264 (130-450) 10^3/uL MPV 7.6 (7.4-11.4) fL ESR (0-15) mm/Hr VBG pH (7.31-7.41) Ionized Calcium (1.15-1.33) mmol/L Sodium (135-145) mmol/L Potassium (3.5-5.0) mmol/L Chloride (101-111) mmol/L Carbon Dioxide (21-32) mmol/L Anion Gap (6-13) BUN (6-20) mg/dL Creatinine (0.6-1.2) mg/dL Estimated GFR (MDRD) (>89) Glucose (70-100) mg/dL Calcium (8.5-10.3) mg/dL Phosphorus (2.5-4.6) mg/dL Magnesium (1.7-2.8) mg/dL Total Bilirubin (0.2-1.0) mg/dL AST (10-42) IU/L ALT (10-60) IU/L Alkaline Phosphatase (42-121) IU/L C-Reactive Protein (0-1.0) mg/dL Total Protein (6.7-8.2) g/dL Albumin (3.2-5.5) g/dL Globulin (2.1-4.2) g/dL Albumin/Globulin Ratio (1.0-2.2) Assessment/Plan - Problem List (1) Sepsis Impression: (1) Sepsis Conclusion/Plan: pt had slight elevated temperature last night, WBC returned the original number , more drainage. called central team/PICC team to set up central line to pt called and discussed with surgeon for next plan continue zosyn and vancomycin follow up blood and wound culture IVF NS pain control daily lab test, vital monitor Patient presented to the emergency department with urinary retention, abdominal pain and rectal pain with rectal drainage. On presentation the patient was found to have leukocytosis of 18.2 with a bandemia of 28%, he was also febrile up to 38.1 and tachycardic in the 120s. Patient's lactic acid was within normal limits and blood pressure was stable. The patient was found to have cellulitis in the perirectal area and CT of abdomen pelvis revealed marked rectal wall thickening and infiltration of adjacent fat with differential considerations including proctitis with extensive surrounding cellulitis predisposed to perirectal abscess formation versus hematoma. Patient was admitted for sepsis secondary to perirectal cellulitis and likely abscess. Plan: Patient be placed on IV Zosyn and Flagyl Patient will be given IV fluids We will continue to monitor patient's vitals closely Monitor CBC and lactate Surgery consult for possible I&D Qualifiers: Sepsis type: sepsis due to unspecified organism Qualified Code(s): A41.9 - Sepsis, unspecified organism (2) Rectal cellulitis Conclusion/Plan: still erythema, continue antibiotic treatment follow up blood and wound culture pain control surgeon saw pt, will follow up, now pt has enemas with Flagyl continue pain control surgeon recommend no urgent procedure, pt begin to have diet Patient presented with rectal pain, serosanguineous drainage which was foul- smelling. Patient appears to have rectal cellulitis with induration around the perirectal area concerning for forming phlegmon or abscess. Patient's CT also confirms the extensive cellulitis and likely forming perirectal abscess. The patient presented with sepsis. Because of this cellulitis appears to be the use of a sex toy inserted in the patient's anus. Plan: Place patient on IV Zosyn and Flagyl Give IV fluids Surgical consult for possible I&D N.p.o. after midnight for possible I&D Pain control with oxycodone and IV Dilaudid (3) Urinary retention Conclusion/Plan: PSA reviewed, unremarkable remain lopez now until infection controlled Patient has had urinary retention for the last 5 days. This is likely secondary to the severity of the patient's rectal infection and abscess which likely is compressing the patient's ureters and causing urinary retention. Plan: Lopez catheter placed and will remain in place until patient's infection starts to resolve. Check PSA (4) Hypokalemia Conclusion/Plan: resolved slight increase to 3.1, add potassium IV and PO Patient presents with potassium of 3.0 this is likely secondary to dehydration from infection and urinary retention. Patient's potassium will be replaced with his IV fluid Monitor potassium daily (5) Hyponatremia Conclusion/Plan: Na 132 today, will consider once pill of NaCl Na upto 134, continue IVF NS Patient appears to have hypovolemic hyponatremia this is likely secondary to his sepsis and dehydration. Patient will be given IV fluids We will monitor patient's sodium. (6) Tobacco abuse Conclusion/Plan: continue nicotin patch, advise pt quit smoking cigarette. Qualifiers: Sepsis type: sepsis due to unspecified organism Qualified Code(s): A41.9 - Sepsis, unspecified organism
--- NOTE | 2017-03-30 11:38 | XRAY Preliminary Report ---
Exam: XR Chest 1 View IMPRESSION: Right central catheter tip in the midsuperior vena cava. No pneumothorax. [facility] SITE ID: [id number]
--- NOTE | 2017-03-30 11:40 | XRAY Report ---
EXAM: CHEST RADIOGRAPHY EXAM DATE: 03/30/2017 11:16 AM. CLINICAL HISTORY: Central Line Placement. COMPARISON: None. TECHNIQUE: 1 view. FINDINGS: Lungs/Pleura: No focal opacities evident. No pleural effusion. No pneumothorax. Mediastinum: Within exam limitations, the cardiomediastinal contour is normal. Other: Right central catheter tip in the mid superior vena cava. IMPRESSION: Right central catheter tip in the midsuperior vena cava. No pneumothorax. [facility] Referring Provider Line: [phone] SITE ID: [id number]
[2017-03-30] MEDS: VANCOMYCIN INJ 1 GM in SODIUM CHLORIDE 0.9% 250 ML IV SCH ×2 (14:32→22:52)
[2017-03-30] MEDS ORDERED: SODIUM CHLORIDE 1 GM TABLET PO SCH (15:00)
--- NOTE | 2017-03-30 16:37 | PROVIDER PROGRESS NOTE ---
Subjective - General Admit Date: 03/28/17 - Review of Systems Drain Output Description: Purulent - yellow green coming from patient's anus Approximate mls Output: Large amount General: positive: No symptoms HEENT: positive: No symptoms Pulmonary: positive: No symptoms Cardiovascular: positive: No symptoms Gastrointestinal: positive: No symptoms, Flatus (Patient states that he is very gassy.) Genitourinary: positive: No symptoms Musculoskeletal: positive: No symptoms Skin: positive: No symptoms Objective - Patient Data Reviewed Vital Signs: Yes Vital Signs: Vital Signs x48h Temp Pulse Resp BP Pulse Ox 03/30/17 15:50 37.4 C 115 H 18 108/75 99 Weight: Weight 03/28/17 03/29/17 03/30/17 23:59 23:59 23:59 Weight (kg) 96 kg Intake & Output: Intake and Output Totals x24h 03/28/17 03/29/17 03/30/17 23:59 23:59 23:59 Intake Total 200 1840 3175 Output Total 1850 3925 2650 Balance -1650 -2084 525 - Lab Results Lab Results: 03/30/17 05:36 03/30/17 05:36 Other Lab Results: Lab Results x24hrs 03/30/17 03/30/17 03/30/17 Range/Units 10:35 05:36 05:36 WBC (4.8-10.8) x10^3/uL RBC (4.70-6.10) 10^6/uL Hgb (14.0-18.0) g/dL Hct (42.0-52.0) % MCV (80.0-94.0) fL MCH (27.0-31.0) pg MCHC (32.0-36.0) g/dL RDW (12.0-15.0) % Plt Count (130-450) 10^3/uL MPV (7.4-11.4) fL ESR 21 H (0-15) mm/Hr VBG pH 7.449 H (7.31-7.41) Ionized Calcium 1.06 L (1.15-1.33) mmol/L Sodium (135-145) mmol/L Potassium (3.5-5.0) mmol/L Chloride (101-111) mmol/L Carbon Dioxide (21-32) mmol/L Anion Gap (6-13) BUN (6-20) mg/dL Creatinine (0.6-1.2) mg/dL Estimated GFR (MDRD) (>89) Glucose (70-100) mg/dL Calcium (8.5-10.3) mg/dL Phosphorus (2.5-4.6) mg/dL Magnesium (1.7-2.8) mg/dL Total Bilirubin (0.2-1.0) mg/dL AST (10-42) IU/L ALT (10-60) IU/L Alkaline Phosphatase (42-121) IU/L C-Reactive Protein (0-1.0) mg/dL Total Protein (6.7-8.2) g/dL Albumin (3.2-5.5) g/dL Globulin (2.1-4.2) g/dL Albumin/Globulin Ratio (1.0-2.2) Last Dose Date 03/30/17 Last Dose Time 414 Vancomycin Trough 5.3 (5.0-15.0) ug/mL 03/30/17 03/30/17 Range/Units 05:36 05:36 WBC 18.6 H (4.8-10.8) x10^3/uL RBC 4.51 L (4.70-6.10) 10^6/uL Hgb 12.7 L (14.0-18.0) g/dL Hct 37.1 L (42.0-52.0) % MCV 82.3 (80.0-94.0) fL MCH 28.1 (27.0-31.0) pg MCHC 34.2 (32.0-36.0) g/dL RDW 14.1 (12.0-15.0) % Plt Count 264 (130-450) 10^3/uL MPV 7.6 (7.4-11.4) fL ESR (0-15) mm/Hr VBG pH (7.31-7.41) Ionized Calcium YES (1.15-1.33) mmol/L Sodium 132 L (135-145) mmol/L Potassium 3.5 (3.5-5.0) mmol/L Chloride 93 L (101-111) mmol/L Carbon Dioxide 29 (21-32) mmol/L Anion Gap 10.0 (6-13) BUN 6 (6-20) mg/dL Creatinine 0.8 (0.6-1.2) mg/dL Estimated GFR (MDRD) 110 (>89) Glucose 114 H (70-100) mg/dL Calcium 7.8 L (8.5-10.3) mg/dL Phosphorus 3.4 (2.5-4.6) mg/dL Magnesium 1.8 (1.7-2.8) mg/dL Total Bilirubin 0.7 (0.2-1.0) mg/dL AST 29 (10-42) IU/L ALT 22 (10-60) IU/L Alkaline Phosphatase 52 (42-121) IU/L C-Reactive Protein 25.1 H (0-1.0) mg/dL Total Protein 5.7 L (6.7-8.2) g/dL Albumin 2.6 L (3.2-5.5) g/dL Globulin 3.1 (2.1-4.2) g/dL Albumin/Globulin Ratio 0.8 L (1.0-2.2) Last Dose Date Last Dose Time Vancomycin Trough (5.0-15.0) ug/mL - Current Medications Current Medications: Current Medications Generic Name Dose Route Start Last Admin Trade Name Freq PRN Reason Stop Dose Admin Acetaminophen 650 mg 03/28/17 21:24 03/29/17 21:05 Tylenol PO 650 mg Q4HR PRN Administration Pain 1 to 4 Docusate Sodium 250 - 500 mg 03/29/17 21:00 03/30/17 09:17 Colace 250mg Capsule PO 250 mg DAILY [facility] Administration Enoxaparin Sodium 40 mg 03/29/17 09:00 03/30/17 09:14 Lovenox SUBQ 40 mg DAILY [facility] Administration Famotidine 20 mg 03/29/17 09:00 03/30/17 09:18 Pepcid PO 20 mg DAILY [facility] Administration Hydromorphone HCl 1 mg 03/28/17 21:24 03/30/17 14:32 Dilaudid Inj Carp IVP 1 mg Q2HR PRN Administration Pain 8 to 10 Potassium Chloride/Sodium Chloride 1,000 mls @ 150 mls/hr 03/28/17 22:00 14:34 Normal Saline 0.9% W/20 Meq Kcl IV 150 mls/hr .Q6H40M [facility] Infusion Vancomycin HCl 1 gm/ Sodium 250 mls @ 167 mls/hr 03/30/17 14:00 03/30/17 14: 32 Chloride IV 167 mls/hr Q8H [facility] Administration Nicotine 1 patch 03/28/17 23:00 03/30/17 09:11 Nicoderm TOP 1 patch DAILY [facility] Administration Oxycodone HCl 10 mg 03/28/17 21:24 03/30/17 15:39 Roxicodone PO 10 mg Q4HR PRN Administration Pain 8 to 10 Polyethylene Glycol 17 gm 03/29/17 09:00 03/29/17 10:58 Miralax PO 17 gm DAILY [facility] Administration Senna 8.6 - 17.2 mg 03/29/17 21:00 03/30/17 09:18 Senokot PO 8.6 mg DAILY [facility] Administration Sodium Chloride 10 ml 03/28/17 22:00 03/30/17 14:32 Normal Saline Flush 0.9% IVP 10 ml Q8HR [facility] Administration Zolpidem Tartrate 5 mg 03/28/17 21:24 03/28/17 23:56 Ambien PO 5 mg QPM PRN Administration Insomnia - Physical Exam General Appearance: positive: No acute distress Eyes Bilateral: positive: No lid inflammation, Conjunctivae nml, No scleral icterus Neck: positive: Trachea midline Respiratory: positive: Chest non-tender, No respiratory distress, Breath sounds nml Cardiovascular: positive: Regular rate & rhythm Rectal: positive: Other (Redness on right buttock has not gone beyond garcía. Copious yellow-green pus coming from anus. Questionable fluctuance.) Skin: positive: Other (Dark red on right buttock.) Impression/Plan - Problem List Problem List: I question whether this infection-cellulitis has progressed to an organized abscess. If so it appears to have spontaneously drained. Now with a central line in place the administration of antibiotics will not be held up. Check CT tomorrow to check for progress. Continue antibiotics. Patient aware and in agreement. Instructed to walk and shower.
[2017-03-30] MEDS ORDERED: IOPAMIDOL-300 100 ML VIAL ONE (18:08)
[2017-03-30] MEDS ORDERED: IOPAMIDOL-300 100 ML VIAL IVP ONE (20:32)
--- NOTE | 2017-03-30 21:05 | CT Report ---
EXAM: CT ABDOMEN AND PELVIS EXAM DATE: 03/30/2017 08:07 PM. CLINICAL HISTORY: Perirectal abscess and drainage of pus. COMPARISONS: None. TECHNIQUE: Routine helical CT imaging was performed through the abdomen and pelvis. IV contrast: 100 cc Isovue-300. Enteric contrast: No. Reconstructions: Coronal and sagittal. In accordance with CT protocol optimization, one or more of the following dose reduction techniques w ere utilized for this exam: automated exposure control, adjustment of mA and/or KV based on patient s ize, or use of iterative reconstructive technique. FINDINGS: Lung Bases: Unremarkable. Liver: Normal. No masses. Gallbladder/Bile Ducts: Unremarkable. Spleen: Normal. Pancreas: Normal. Adrenal Glands: Normal. Kidneys: There is mild bilateral hydronephrosis and hydroureter. No stones are seen. Peritoneal Cavity/Bowel: There is marked, regular rectal wall thickening. There is adjacent fluid and air. The process extends to the perineum and perirectal soft tissues. There is fluid and air collect ion measuring approximately 8 x 5 cm within the right pararectal soft tissues. Interval increase in p erirectal and perianal soft tissue air. There is moderate volume stool within proximal colon. No dila flavio small bowel is seen. No evidence of intraperitoneal free air. Pelvic Organs: There is urinary bladder wall thickening. A bladder catheter is in place. The bladder is displaced anteriorly. Vasculature: No aneurysms or other significant abnormality. Bones: No significant abnormality. Other: None. IMPRESSION: 1. Severe perirectal/perianal infectious process. There is marked perirectal wall thickening with are as of possible mural discontinuity. There is marked perirectal and presacral fluid. Interval increase in perirectal air. Findings are suspicious for infection with gas-forming organism with abscess form ation. There is a circumscribed fluid and air collection measuring approximately 8 x 5 cm. 2. Urinary bladder wall thickening is suspicious for cystitis. There is mild bilateral hydronephrosis and hydroureter which is probably reflective of mild ureteral obstruction secondary to the pronounce d low sigmoid and rectal inflammation. 3. There is moderate distention of colon with air and stool proximal to the rectosigmoid inflammation . [facility] Referring Provider Line: [phone] SITE ID: [id number]
[2017-03-31] MEDS: NS W/20 MEQ KCL 1,000 ML IV SCH ×4 (00:14→23:46)
[2017-03-31] MEDS: ACETAMINOPHEN 325 MG TABLET PO PRN ×2 (00:15→16:20)
[2017-03-31] MEDS: HYDROmorphone 1 MG/ML CARPUJECT IVP PRN ×4 (00:15→08:04)
[2017-03-31] MEDS: SODIUM CHLORIDE FLUSH 0.9% 10 ML SYRINGE IVP SCH ×4 (00:16→22:58)
[2017-03-31] MEDS: PIPERACILLIN/TAZOBACTAM 3.375 GM in SODIUM CHLORIDE 0.9% MINIBAG 100 ML IV SCH ×5 (00:31→22:03)
[2017-03-31] MEDS: SODIUM CHLORIDE FLUSH 0.9% 10 ML SYRINGE IVP PRN (02:44)
[2017-03-31] MEDS: VANCOMYCIN INJ 1 GM in SODIUM CHLORIDE 0.9% 250 ML IV SCH (05:47)
[2017-03-31 07:08] LABS: HCT - HEMATOCRIT 34.6 % (42.0-52.0); HGB - HEMOGLOBIN 11.6 g/dL (14.0-18.0); MEAN CORPUSCULAR HGB CONC 33.5 g/dL (32.0-36.0); MEAN CORPUSCULAR VOLUME 83.6 fL (80.0-94.0); MEAN PLATELET VOLUME 7.5 fL (7.4-11.4); RED BLOOD COUNT 4.14 10^6/uL (4.70-6.10); RED CELL DISTRIBUTION WIDTH 14.4 % (12.0-15.0); WHITE BLOOD COUNT 14.2 x10^3/uL (4.8-10.8)
[2017-03-31 07:39] LABS: ALBUMIN/GLOBULIN RATIO 0.8 (1.0-2.2); BILIRUBIN,TOTAL 0.5 mg/dL (0.2-1.0); BUN - BLOOD UREA NITROGEN 7 mg/dL (6-20); CALCIUM 7.9 mg/dL (8.5-10.3); CARBON DIOXIDE - CO2 28 mmol/L (21-32); CHLORIDE 95 mmol/L (101-111); CREATININE 0.9 mg/dL (0.6-1.2); GFR - MDRD 96 (>89); GLUCOSE 128 mg/dL (70-100); POTASSIUM 3.8 mmol/L (3.5-5.0); SODIUM 134 mmol/L (135-145); TOTAL PROTEIN 5.5 g/dL (6.7-8.2)
[2017-03-31 07:42] LABS: CALCIUM, IONIZED 1.11 mmol/L (1.15-1.33); VBG PH 7.358 (7.31-7.41)
[2017-03-31] MEDS: oxyCODONE 5 MG TABLET PO PRN (09:25)
[2017-03-31] MEDS: DOCUSATE SODIUM 250 MG CAPSULE PO SCH (09:40)
[2017-03-31] MEDS: POLYETHYLENE GLYCOL 3350 17 GM PACKET PO SCH (09:41)
[2017-03-31] MEDS: SENNA 8.6 MG TABLET PO SCH (09:43)
[2017-03-31] MEDS: ENOXAPARIN 40 MG/0.4 ML SYRINGE SUBQ SCH (09:53)
[2017-03-31] MEDS: NICOTINE 21 MG PATCH TOP SCH (09:54)
[2017-03-31] MEDS: FAMOTIDINE 20 MG TABLET PO SCH (09:54)
[2017-03-31] MEDS ORDERED: PIPERACILLIN/TAZOBACTAM 3.375 GM in SODIUM CHLORIDE 0.9% MINIBAG 100 ML IV SCH (10:00)
[2017-03-31] MEDS: HYDROmorphone 1 MG/ML SYRINGE IVP PRN ×5 (10:51→22:08)
--- NOTE | 2017-03-31 11:58 | PROVIDER PROGRESS NOTE ---
Subjective - Prog Note Date Prog Note Date: 03/31/17 - Subjective Pt reports feeling: Improved Subjective: pt report he feel better, pain is good controlled. pt report he has a bowel movement with loose stool. Pt request no any procedure for him today. Pt state the reason is he want to watch the football game, and his Mother will bring food to him, and he want to eat and watch the game, no NPO. Pt had a CT done on last night, I called surgeon Dr. Galeas, and reported the new finding in the CT to him. Current Medications - Current Medications Current Medications: Active Medications Acetaminophen (Tylenol) 650 mg PO Q4HR PRN PRN Reason: Pain 1 to 4 Last Admin: 03/31/17 00:15 Dose: 650 mg Docusate Sodium (Colace 250mg Capsule) 250 - 500 mg PO DAILY [facility] Last Admin: 03/31/17 09:40 Dose: Not Given Enoxaparin Sodium (Lovenox) 40 mg SUBQ DAILY [facility] Last Admin: 03/31/17 09:53 Dose: 40 mg Famotidine (Pepcid) 20 mg PO DAILY [facility] Last Admin: 03/31/17 09:54 Dose: 20 mg Hydromorphone HCl (Dilaudid Inj Syringe) 1 mg IVP Q2HR PRN PRN Reason: PAIN 8-10 Last Admin: 03/31/17 10:51 Dose: 1 mg Potassium Chloride/Sodium Chloride (Normal Saline 0.9% W/20 Meq Kcl) 1,000 mls @ 150 mls/hr IV .Q6H40M [facility] Last Infusion: 03/31/17 08:44 Dose: 150 mls/hr Vancomycin HCl 1 gm/ Sodium (Chloride) 250 mls @ 167 mls/hr IV Q8H [facility] Last Infusion: 03/31/17 07:23 Dose: Infused Piperacillin Sod/Tazobactam (Sod 3.375 gm/ Sodium Chloride) 100 mls @ 200 mls/ hr IV Q6H [facility] Nicotine (Nicoderm) 1 patch TOP DAILY [facility] Last Admin: 03/31/17 09:54 Dose: 1 patch Ondansetron HCl (Zofran Inj) 4 mg IVP Q6HR PRN PRN Reason: Nausea / Vomiting Oxycodone HCl (Roxicodone) 5 mg PO Q4HR PRN PRN Reason: Pain 5 to 7 Last Admin: 03/31/17 02:17 Dose: 5 mg Oxycodone HCl (Roxicodone) 10 mg PO Q4HR PRN PRN Reason: Pain 8 to 10 Last Admin: 03/31/17 09:25 Dose: 10 mg Polyethylene Glycol (Miralax) 17 gm PO DAILY [facility] Last Admin: 03/31/17 09:41 Dose: Not Given Prochlorperazine Edisylate (Compazine Inj) 10 mg IVP Q6HR PRN PRN Reason: Nausea / Vomiting Senna (Senokot) 8.6 - 17.2 mg PO DAILY [facility] Last Admin: 03/31/17 09:43 Dose: Not Given Sodium Chloride (Normal Saline Flush 0.9%) 10 ml IVP Q8HR [facility] Last Admin: 03/31/17 00:16 Dose: 10 ml Sodium Chloride (Normal Saline Flush 0.9%) 10 ml IVP PRN PRN PRN Reason: NEEDED PER PROVIDER ORDERS Last Admin: 03/31/17 02:44 Dose: 10 ml Temazepam (Restoril) 7.5 mg PO QPM PRN PRN Reason: Insomnia Zolpidem Tartrate (Ambien) 5 mg PO QPM PRN PRN Reason: Insomnia Last Admin: 03/28/17 23:56 Dose: 5 mg Objective - Vital Signs/Intake & Output Reviewed Vital Signs: Yes Vital Signs: Vital Signs x48h Temp Pulse Resp BP Pulse Ox 03/31/17 06:00 36.6 C 106 H 18 111/57 L 100 Intake & Output: Intake & Output 03/28/17 03/29/17 03/30/17 03/31/17 23:59 23:59 23:59 23:59 Intake Total 500 5740 5717.5 4767.5 Output Total 1850 3925 4625 1650 Balance -1350 1815 1092.5 3117.5 - Objective General Appearance: positive: No acute distress, Alert. negative: Lethargic Eyes Bilateral: positive: Normal inspection, PERRL, EOMI, No lid inflammation, Conjunctivae nml ENT: positive: ENT inspection nml, Pharynx nml, No signs of dehydration. negative: Purulent nasal drainage, Pharyngeal erythema, Oral lesions Neck: positive: Nml inspection, Thyroid nml, No JVD, Trachea midline. negative : Thyromegaly, Lymphadenopathy (R), Lymphadenopathy (L), Stiff neck, Carotid bruit, Swelling/bruising, Tracheal deviation Respiratory: positive: Chest non-tender, No respiratory distress, Breath sounds nml. negative: Wheezes, Rales, Rhonchi Cardiovascular: positive: Regular rate & rhythm, No murmur, No gallop. negative : Irregularly irregular, Extrasystoles, Tachycardia, Bradycardia, Systolic murmur, Diastolic murmur Peripheral Pulses: 2+ Radial (R), 2+ Radial (L), 2+ Dorsalis pedis (R), 2+ Dorsalis pedis (L) Abdomen: positive: Non-tender, Nml bowel sounds, No distention. negative: Tenderness, Guarding, Rebound Rectal: positive: Tenderness, Other (erythema around annus area and with mild to moderate drainage) Back: positive: Nml inspection. negative: CVA tenderness (R), CVA tenderness (L ) Skin: positive: Color nml, No rash, Warm, Dry. negative: Cyanosis, Diaphoresis , Pallor Extremities: positive: Non-tender, Full ROM, Nml appearance. negative: Calf tenderness, Joint swelling, Rachel's sign/cords Neurologic/Psychiatric: positive: Oriented x3, Motor nml, Sensation nml. negative: Sensory loss, Facial droop, Slurred/abnml speech, Depressed mood/ affect - Lab Results Fish Bones: 03/31/17 07:00 03/31/17 07:00 Other Labs: Lab Results x24hrs 03/31/17 03/31/17 03/31/17 Range/Units 07:00 07:00 07:00 WBC (4.8-10.8) x10^3/uL RBC (4.70-6.10) 10^6/uL Hgb (14.0-18.0) g/dL Hct (42.0-52.0) % MCV (80.0-94.0) fL MCH (27.0-31.0) pg MCHC (32.0-36.0) g/dL RDW (12.0-15.0) % Plt Count (130-450) 10^3/uL MPV (7.4-11.4) fL ESR 21 H (0-15) mm/Hr VBG pH 7.358 (7.31-7.41) Ionized Calcium 1.11 L YES (1.15-1.33) mmol/L Sodium 134 L (135-145) mmol/L Potassium 3.8 (3.5-5.0) mmol/L Chloride 95 L (101-111) mmol/L Carbon Dioxide 28 (21-32) mmol/L Anion Gap 11.0 (6-13) BUN 7 (6-20) mg/dL Creatinine 0.9 (0.6-1.2) mg/dL Estimated GFR (MDRD) 96 (>89) Glucose 128 H (70-100) mg/dL Calcium 7.9 L (8.5-10.3) mg/dL Total Bilirubin 0.5 (0.2-1.0) mg/dL AST 29 (10-42) IU/L ALT 20 (10-60) IU/L Alkaline Phosphatase 47 (42-121) IU/L C-Reactive Protein 22.0 H (0-1.0) mg/dL Total Protein 5.5 L (6.7-8.2) g/dL Albumin 2.4 L (3.2-5.5) g/dL Globulin 3.1 (2.1-4.2) g/dL Albumin/Globulin Ratio 0.8 L (1.0-2.2) 03/31/17 Range/Units 07:00 WBC 14.2 H (4.8-10.8) x10^3/uL RBC 4.14 L (4.70-6.10) 10^6/uL Hgb 11.6 L (14.0-18.0) g/dL Hct 34.6 L (42.0-52.0) % MCV 83.6 (80.0-94.0) fL MCH 28.0 (27.0-31.0) pg MCHC 33.5 (32.0-36.0) g/dL RDW 14.4 (12.0-15.0) % Plt Count 279 (130-450) 10^3/uL MPV 7.5 (7.4-11.4) fL ESR (0-15) mm/Hr VBG pH (7.31-7.41) Ionized Calcium (1.15-1.33) mmol/L Sodium (135-145) mmol/L Potassium (3.5-5.0) mmol/L Chloride (101-111) mmol/L Carbon Dioxide (21-32) mmol/L Anion Gap (6-13) BUN (6-20) mg/dL Creatinine (0.6-1.2) mg/dL Estimated GFR (MDRD) (>89) Glucose (70-100) mg/dL Calcium (8.5-10.3) mg/dL Total Bilirubin (0.2-1.0) mg/dL AST (10-42) IU/L ALT (10-60) IU/L Alkaline Phosphatase (42-121) IU/L C-Reactive Protein (0-1.0) mg/dL Total Protein (6.7-8.2) g/dL Albumin (3.2-5.5) g/dL Globulin (2.1-4.2) g/dL Albumin/Globulin Ratio (1.0-2.2) Assessment/Plan - Problem List (1) Sepsis Impression: (1) Sepsis Conclusion/Plan: pt report he feel better. WBC is down from 19 to 14, CRP is down from [address] done last night is reviewed. The findings are suspicious for infection with gas-forming organism with abscess formation. I called Dr. Galeas to report the finding, and will follow up. Pt state he does not want to do procedure on today. He does not want to be NPO today and he want to watch the football game and eat the food. continue antibiotic of Zosyn and vancomycin IVF NS pain control lab and vital monitor pt pt had slight elevated temperature last night, WBC returned the original number , more drainage. called central team/PICC team to set up central line to pt called and discussed with surgeon for next plan continue zosyn and vancomycin follow up blood and wound culture IVF NS pain control daily lab test, vital monitor Patient presented to the emergency department with urinary retention, abdominal pain and rectal pain with rectal drainage. On presentation the patient was found to have leukocytosis of 18.2 with a bandemia of 28%, he was also febrile up to 38.1 and tachycardic in the 120s. Patient's lactic acid was within normal limits and blood pressure was stable. The patient was found to have cellulitis in the perirectal area and CT of abdomen pelvis revealed marked rectal wall thickening and infiltration of adjacent fat with differential considerations including proctitis with extensive surrounding cellulitis predisposed to perirectal abscess formation versus hematoma. Patient was admitted for sepsis secondary to perirectal cellulitis and likely abscess. Plan: Patient be placed on IV Zosyn and Flagyl Patient will be given IV fluids We will continue to monitor patient's vitals closely Monitor CBC and lactate Surgery consult for possible I&D Qualifiers: Sepsis type: sepsis due to unspecified organism Qualified Code(s): A41.9 - Sepsis, unspecified organism (2) Rectal cellulitis Conclusion/Plan: mild to moderate drainage, still erythema, pain is reduced per pt's statement continue current treatment preliminary Blood culture is negative, wound culture is pending, will follow up still erythema, continue antibiotic treatment follow up blood and wound culture pain control surgeon saw pt, will follow up, now pt has enemas with Flagyl continue pain control surgeon recommend no urgent procedure, pt begin to have diet Patient presented with rectal pain, serosanguineous drainage which was foul- smelling. Patient appears to have rectal cellulitis with induration around the perirectal area concerning for forming phlegmon or abscess. Patient's CT also confirms the extensive cellulitis and likely forming perirectal abscess. The patient presented with sepsis. Because of this cellulitis appears to be the use of a sex toy inserted in the patient's anus. Plan: Place patient on IV Zosyn and Flagyl Give IV fluids Surgical consult for possible I&D N.p.o. after midnight for possible I&D Pain control with oxycodone and IV Dilaudid (3) Urinary retention Conclusion/Plan: continue lopez until infection controlled PSA reviewed, unremarkable remain lopez now until infection controlled Patient has had urinary retention for the last 5 days. This is likely secondary to the severity of the patient's rectal infection and abscess which likely is compressing the patient's ureters and causing urinary retention. Plan: Lopez catheter placed and will remain in place until patient's infection starts to resolve. Check PSA (4) Hypokalemia Conclusion/Plan: resolved slight increase to 3.1, add potassium IV and PO Patient presents with potassium of 3.0 this is likely secondary to dehydration from infection and urinary retention. Patient's potassium will be replaced with his IV fluid Monitor potassium daily (5) Hyponatremia Conclusion/Plan: today Na 134 Na 132 today, will consider once pill of NaCl Na upto 134, continue IVF NS Patient appears to have hypovolemic hyponatremia this is likely secondary to his sepsis and dehydration. Patient will be given IV fluids We will monitor patient's sodium. (6) Tobacco abuse Conclusion/Plan: continue nicotin patch, advise pt quit smoking cigarette. Qualifiers: Sepsis type: sepsis due to unspecified organism Qualified Code(s): A41.9 - Sepsis, unspecified organism
[2017-03-31] MEDS: VANCOMYCIN 2 GM/NS 500 ML 2 GM/500 ML BAG IV SCH (14:58)
[2017-03-31] MEDS ORDERED: VANCOMYCIN 2 GM/NS 500 ML 2 GM/500 ML BAG IV SCH (15:00)
--- NOTE | 2017-03-31 15:15 | PROVIDER PROGRESS NOTE ---
Subjective - General Admit Date: 03/28/17 - Review of Systems Wound/Incisions: positive: Drainage (Large amount of pus and liquid stool from the patient's anus.) Drain Output Description: Purulent - yellow green coming from patient's anus Approximate mls Output: Large amount General: positive: No symptoms HEENT: positive: No symptoms Pulmonary: positive: No symptoms Cardiovascular: positive: No symptoms Gastrointestinal: positive: No symptoms, Flatus (Patient states that he is very gassy.), Diarrhea (Mixed with pus.) Genitourinary: positive: No symptoms Musculoskeletal: positive: No symptoms Skin: positive: Other (Erythematous and "pointing" on right buttocks.) Objective - Patient Data Reviewed Vital Signs: Yes Vital Signs: Vital Signs x48h Pulse Resp BP Pulse Ox 03/31/17 14:00 111 H 18 107/69 95 Intake & Output: Intake and Output Totals x24h 03/29/17 03/30/17 03/31/17 23:59 23:59 23:59 Intake Total 5740 5717.5 5512.5 Output Total 3925 4625 2450 Balance 1815 1092.5 3062.5 - Lab Results Lab Results: 03/31/17 07:00 03/31/17 07:00 Other Lab Results: Lab Results x24hrs 03/31/17 03/31/17 03/31/17 Range/Units 13:58 07:00 07:00 WBC (4.8-10.8) x10^3/uL RBC (4.70-6.10) 10^6/uL Hgb (14.0-18.0) g/dL Hct (42.0-52.0) % MCV (80.0-94.0) fL MCH (27.0-31.0) pg MCHC (32.0-36.0) g/dL RDW (12.0-15.0) % Plt Count (130-450) 10^3/uL MPV (7.4-11.4) fL ESR 21 H (0-15) mm/Hr VBG pH 7.358 (7.31-7.41) Ionized Calcium 1.11 L (1.15-1.33) mmol/L Sodium (135-145) mmol/L Potassium (3.5-5.0) mmol/L Chloride (101-111) mmol/L Carbon Dioxide (21-32) mmol/L Anion Gap (6-13) BUN (6-20) mg/dL Creatinine (0.6-1.2) mg/dL Estimated GFR (MDRD) (>89) Glucose (70-100) mg/dL Calcium (8.5-10.3) mg/dL Total Bilirubin (0.2-1.0) mg/dL AST (10-42) IU/L ALT (10-60) IU/L Alkaline Phosphatase (42-121) IU/L C-Reactive Protein (0-1.0) mg/dL Total Protein (6.7-8.2) g/dL Albumin (3.2-5.5) g/dL Globulin (2.1-4.2) g/dL Albumin/Globulin Ratio (1.0-2.2) Last Dose Date 03/31/17 Last Dose Time 0723 Vancomycin Trough 7.1 (5.0-15.0) ug/mL 03/31/17 03/31/17 Range/Units 07:00 07:00 WBC 14.2 H (4.8-10.8) x10^3/uL RBC 4.14 L (4.70-6.10) 10^6/uL Hgb 11.6 L (14.0-18.0) g/dL Hct 34.6 L (42.0-52.0) % MCV 83.6 (80.0-94.0) fL MCH 28.0 (27.0-31.0) pg MCHC 33.5 (32.0-36.0) g/dL RDW 14.4 (12.0-15.0) % Plt Count 279 (130-450) 10^3/uL MPV 7.5 (7.4-11.4) fL ESR (0-15) mm/Hr VBG pH (7.31-7.41) Ionized Calcium YES (1.15-1.33) mmol/L Sodium 134 L (135-145) mmol/L Potassium 3.8 (3.5-5.0) mmol/L Chloride 95 L (101-111) mmol/L Carbon Dioxide 28 (21-32) mmol/L Anion Gap 11.0 (6-13) BUN 7 (6-20) mg/dL Creatinine 0.9 (0.6-1.2) mg/dL Estimated GFR (MDRD) 96 (>89) Glucose 128 H (70-100) mg/dL Calcium 7.9 L (8.5-10.3) mg/dL Total Bilirubin 0.5 (0.2-1.0) mg/dL AST 29 (10-42) IU/L ALT 20 (10-60) IU/L Alkaline Phosphatase 47 (42-121) IU/L C-Reactive Protein 22.0 H (0-1.0) mg/dL Total Protein 5.5 L (6.7-8.2) g/dL Albumin 2.4 L (3.2-5.5) g/dL Globulin 3.1 (2.1-4.2) g/dL Albumin/Globulin Ratio 0.8 L (1.0-2.2) Last Dose Date Last Dose Time Vancomycin Trough (5.0-15.0) ug/mL - Imaging Results Radiology Imaging: positive: Final report received, EMP read indepedently Imaging Results Comments: The CT of the abdomen and pelvis shows air and inflammation of the perirectal tissues. In my reading of the films the air is because the abscess has drained into the rectum and not due to the fact that there are gas-forming organisms in this. Additionally there is a collection of pus in the right buttocks that is inadequately drained but that I feel is contiguous with the perirectal abscess. The air in the bladder is due to the patient's Martin. - Current Medications Current Medications: Current Medications Generic Name Dose Route Start Last Admin Trade Name Freq PRN Reason Stop Dose Admin Acetaminophen 650 mg 03/28/17 21:24 03/31/17 00:15 Tylenol PO 650 mg Q4HR PRN Administration Pain 1 to 4 Docusate Sodium 250 - 500 mg 03/29/17 21:00 03/31/17 09:40 Colace 250mg Capsule PO Not Given DAILY CATA Enoxaparin Sodium 40 mg 03/29/17 09:00 03/31/17 09:53 Lovenox SUBQ 40 mg DAILY CATA Administration Famotidine 20 mg 03/29/17 09:00 03/31/17 09:54 Pepcid PO 20 mg DAILY CATA Administration Hydromorphone HCl 1 mg 03/31/17 09:00 03/31/17 14:05 Dilaudid Inj Syringe IVP 1 mg Q2HR PRN Administration PAIN 8-10 Potassium Chloride/Sodium Chloride 1,000 mls @ 150 mls/hr 03/28/17 22:00 07/17 14:58 Normal Saline 0.9% W/20 Meq Kcl IV 0 mls/hr .Q6H40M CATA Infusion Piperacillin Sod/Tazobactam 100 mls @ 200 mls/hr 03/31/17 14:00 03/31/17 14: 07 Sod 3.375 gm/ Sodium Chloride IV Infused Q6H CATA Infusion Vancomycin/Sodium Chloride 2 gm in 500 mls @ 250 mls/hr 03/31/17 16:00 14:58 Vanco/Sod Chloride 0.9% IV 250 mls/hr Q12H CATA Administration Nicotine 1 patch 03/28/17 23:00 03/31/17 09:54 Nicoderm TOP 1 patch DAILY CATA Administration Oxycodone HCl 5 mg 03/28/17 21:24 03/31/17 02:17 Roxicodone PO 5 mg Q4HR PRN Administration Pain 5 to 7 Oxycodone HCl 10 mg 03/28/17 21:24 03/31/17 09:25 Roxicodone PO 10 mg Q4HR PRN Administration Pain 8 to 10 Polyethylene Glycol 17 gm 03/29/17 09:00 03/31/17 09:41 Miralax PO Not Given DAILY CATA Senna 8.6 - 17.2 mg 03/29/17 21:00 03/31/17 09:43 Senokot PO Not Given DAILY CATA Sodium Chloride 10 ml 03/28/17 22:00 03/31/17 14:05 Normal Saline Flush 0.9% IVP 10 ml Q8HR CATA Administration Sodium Chloride 10 ml 03/30/17 11:13 03/31/17 02:44 Normal Saline Flush 0.9% IVP 10 ml PRN PRN Administration NEEDED PER PROVIDER ORDERS Zolpidem Tartrate 5 mg 03/28/17 21:24 03/28/17 23:56 Ambien PO 5 mg QPM PRN Administration Insomnia - Physical Exam Wound/Incisions: positive: Drainage (Continued drainage from anus.) General Appearance: positive: No acute distress Eyes Bilateral: positive: No lid inflammation, Conjunctivae nml, No scleral icterus Neck: positive: Trachea midline Respiratory: positive: Chest non-tender, No respiratory distress, Breath sounds nml Cardiovascular: positive: Regular rate & rhythm Abdomen: positive: Non-tender, Nml bowel sounds Rectal: positive: Other (Darkly erythematous and tender right buttock cheek with fluctuance. Purulence liquid stool coming from patient's anus.) Extremities: positive: Nml appearance Neurologic/Psychiatric: positive: Oriented x3 Impression/Plan - Problem List Problem List: Large complex incompletely drained perirectal abscess. As mentioned above it is draining into the patient's rectum which accounts for the patient's improved white blood cell count and him feeling better. Unfortunately, there is an area that is not draining well his right buttocks and this should be drained. I believe it is contiguous with the remaining abscess and that by draining and it will allow for faster drainage and quicker clinical improvement. The patient's mom was in the room for the entire conversation and I explained that it will take weeks for this to resolve completely. I explained that it may be as long as Thanksgiving before he starts feeling better. Both the patient and his mother vocalized an understanding. The plan then is to perform a incision and drainage of a very large perirectal abscess. The size and scope of the drainage required mandates that this be done in the operating room and not in the patient's room. Verbal and written consent was obtained. I explained that it is likely that he will wake up with drains in place. Again, both his mother and the patient vocalized an understanding.
[2017-03-31] MEDS ORDERED: LIDOCAINE JELLY 2% 5 ML TUBE TOP SCH (18:29)
[2017-03-31] MEDS ORDERED: LACTATED RINGERS 1,000 ML IV ONE (19:55)
[2017-03-31] MEDS ORDERED: BUPIVACAINE 0.5% PF 30 ML VIAL SUBQ ONE (20:45)
--- NOTE | 2017-03-31 21:19 | OPERATIVE REPORT ---
Operative Report - General Admit Date: 03/28/17 Planned Procedure: Incision and drainage very large perirectal abscess Pre-Op Diagnosis: Very large perirectal abscess Procedure Performed: Incision and drainage of very large perirectal abscess with placement of drain ( half-inch Dallas) and packing (Betadine soaked Kerlix) Post Op Diagnosis: Same. - Procedure Note Primary Surgeon: Remi Elizabeth MD Anesthesia Provider: Abiel Pacheco Anesthesia Technique: General ET tube, Local (30 mL of half percent Marcaine) IV Fluids (mL): 800 Estimated Blood Loss (mL): 30 Drain/Tube Type: Chepe (Half-inch Chepe inserted in patient's anus through the opening in the rectum and out through the skin sewed to itself) Complications: None. - Other Other Information/Narrative: OPERATIVE DESCRIPTION/REPORT: After verbal and written informed consent was obtained detailing the risks of infection, bleeding requiring transfusion with its risks, nerve injury, and , and after I met with the patient confirming the surgery and the site of the surgery, the patient was brought to the operative suite and placed supine on the operating table. Great care was taken to avoid pressure points to prevent pressure necrosis or nerve injury. Monitoring devices were applied along with TEDs and pneumatic compressive stockings (to prevent DVT). The patient received preoperative antibiotics for surgical prophylaxis. Abiel Pacheco sedated and anethetized the patient for the entire procedure. The patient was then placed prone in the ashok-knife position, again taking care to ensure that we prevented pressure point. The patients buttocks were taped apart and the patient was prepped and draped in the usual sterile manner. A "time in" then confirmed that the paitient was identified with 3 identifiers ( name, birthdate and medical record number), the history and physical was in the chart, the signed consent confirming the procedure was in the chart, the patient was in the correct position, the aforementioned prophylactic measures were in place or given, we had the correct personnel and equipment to complete the procedure and that anesthesia, surgery and nursing were given an opportunity to express any concerns. With the agreement of everyone in the room , we proceeded with the operation. I performed a digital rectal examination with the aid of a water-soluble lubricant and noted that there was thickened mucosa anteriorly and on the right- hand side there was an opening to the lateral pelvic wall and then into the abscess itself. The finger did not make the opening rather that fell into the opening. And then will gently currently with finger I was able to bring my finger towards the skin. I marked the skin with his skin marker approximately quarter sized and removed the skin using Bovie electrocautery. Once I removed the skin and the subcutaneous fat there was immediate flow of copious amounts of purulence. This was a same purulence that the patient was draining through his anus. I did not culture this pus because it was clearly going to come back positive for stool. The abscess was explored and small septations were broken using the Yankauer suction in my finger. This was done gently as to not enter the abdominal cavity. 1/2 inch Dallas drain was then obtained and inserted into the opening that I had made in his perianal skin and brought out through the patient's anus. I then sewed the drain to itself using 2 2-0 nylon sutures so that it could not fall out. I then packed the abscess cavity with a Kerlix that had been soaked in Betadine solution. It easily accepted half of the Kerlix. The surrounding tissues were then injected using half percent Marcaine for long-term pain control. Hemostasis was noted to be present. A dressing was applied. At this point a time out was performed that confirmed that all the counts were correct, the procedure that was performed, the blood loss, the IV fluids administered, and the patients condition. Having tolerated the procedure well, the patient was subsequently taken to PACU in good and stable condition.
[2017-03-31] MEDS ORDERED: HYDROmorphone 1 MG/ML SYRINGE IVP PRN (21:34)
[2017-03-31] MEDS ORDERED: PROPOFOL 200 MG/20 ML VIAL IVP ONE (22:00)
[2017-03-31] MEDS ORDERED: DEXAMETHASONE 4 MG/ML VIAL IVP ONE (22:00)
[2017-03-31] MEDS ORDERED: SUCCINYLCHOLINE 200 MG/10 ML VIAL IVP ONE (22:00)
[2017-03-31] MEDS ORDERED: MIDAZOLAM 2 MG/2 ML VIAL IVP ONE (22:00)
[2017-03-31] MEDS ORDERED: ONDANSETRON 4 MG/2 ML VIAL IVP ONE (22:00)
[2017-03-31] MEDS ORDERED: LIDOCAINE-MPF 2% 5 ML VIAL IM ONE (22:00)
[2017-03-31] MEDS ORDERED: fentaNYL 100 MCG/2 ML VIAL IVP ONE (22:00)
[2017-03-31] MEDS ORDERED: KETOROLAC 30 MG/ML VIAL IVP ONE (22:00)
[2017-03-31] MEDS: ACETAMINOPHEN 1,000 MG/100 ML 100 ML IV SCH (23:00)
[2017-04-01] MEDS: oxyCODONE 5 MG TABLET PO PRN ×3 (00:06→12:21)
[2017-04-01] MEDS: HYDROmorphone 1 MG/ML SYRINGE IVP PRN ×6 (01:28→21:22)
[2017-04-01] MEDS: SODIUM CHLORIDE FLUSH 0.9% 10 ML SYRINGE IVP PRN ×3 (01:28→20:30)
[2017-04-01] MEDS: PIPERACILLIN/TAZOBACTAM 3.375 GM in SODIUM CHLORIDE 0.9% MINIBAG 100 ML IV SCH ×4 (01:45→20:30)
[2017-04-01] MEDS: SODIUM CHLORIDE FLUSH 0.9% 10 ML SYRINGE IVP SCH ×5 (04:56→19:46)
[2017-04-01] MEDS: VANCOMYCIN 2 GM/NS 500 ML 2 GM/500 ML BAG IV SCH ×2 (04:56→16:35)
[2017-04-01] MEDS: ACETAMINOPHEN 1,000 MG/100 ML 100 ML IV SCH ×2 (05:04→10:30)
[2017-04-01 06:15] LABS: BASOPHILS % (AUTO) 0.2 %; EOSINOPHILS % (AUTO) 0.1 %; HCT - HEMATOCRIT 34.9 % (42.0-52.0); HGB - HEMOGLOBIN 11.5 g/dL (14.0-18.0); LYMPHOCYTES # (AUTO) 0.6 10^3/uL (1.5-3.5); LYMPHOCYTES % (AUTO) 4.1 %; MEAN CORPUSCULAR HEMOGLOBIN 27.6 pg (27.0-31.0); MEAN CORPUSCULAR HGB CONC 32.8 g/dL (32.0-36.0); MEAN CORPUSCULAR VOLUME 84.1 fL (80.0-94.0); MEAN PLATELET VOLUME 7.7 fL (7.4-11.4); MONOCYTES # (AUTO) 0.5 10^3/uL (0.0-1.0); MONOCYTES % (AUTO) 3.2 %; NEUTROPHILS # (AUTO) 13.1 10^3/uL (1.5-6.6); NEUTROPHILS % (AUTO) 92.4 %; NUCLEATED RED BLOOD CELLS AUTO 0.1 /100WBC; RED BLOOD COUNT 4.15 10^6/uL (4.70-6.10); RED CELL DISTRIBUTION WIDTH 14.4 % (12.0-15.0); UNCORRECTED WHITE BLOOD COUNT 14.1 x10^3/uL; WHITE BLOOD COUNT 14.1 x10^3/uL (4.8-10.8)
[2017-04-01] MEDS: PANTOPRAZOLE 40 MG TABLET PO SCH (06:52)
[2017-04-01 06:54] LABS: ALBUMIN/GLOBULIN RATIO 0.8 (1.0-2.2); BILIRUBIN,TOTAL 0.5 mg/dL (0.2-1.0); BUN - BLOOD UREA NITROGEN 9 mg/dL (6-20); CALCIUM 8.2 mg/dL (8.5-10.3); CARBON DIOXIDE - CO2 28 mmol/L (21-32); CHLORIDE 97 mmol/L (101-111); CREATININE 0.8 mg/dL (0.6-1.2); GFR - MDRD 110 (>89); GLUCOSE 150 mg/dL (70-100); MAGNESIUM 1.9 mg/dL (1.7-2.8); POTASSIUM 4.6 mmol/L (3.5-5.0); SODIUM 135 mmol/L (135-145); TOTAL PROTEIN 5.7 g/dL (6.7-8.2)
[2017-04-01] MEDS: NS W/20 MEQ KCL 1,000 ML IV SCH ×2 (07:48→23:09)
[2017-04-01 08:10] LABS: VBG PH 7.401 (7.31-7.41)
[2017-04-01 08:11] LABS: CALCIUM, IONIZED 1.09 mmol/L (1.15-1.33)
--- NOTE | 2017-04-01 10:13 | PROVIDER PROGRESS NOTE ---
Subjective - General Admit Date: 03/28/17 Procedure Date: 03/31/17 Post Op Days: 1 Procedure Performed: I and S perirectal abscess - Review of Systems Wound/Incisions: positive: Drainage (copious drainage from incision) Drain Output Description: yellowish brown Approximate mls Output: Large amount General: positive: No symptoms HEENT: positive: No symptoms Pulmonary: positive: No symptoms Cardiovascular: positive: No symptoms Gastrointestinal: positive: No symptoms, Flatus (Patient states that he is very gassy.) Genitourinary: positive: Retention Musculoskeletal: positive: No symptoms Skin: positive: Other (improved right gluteal erythema) Psychiatric: positive: Mood lability Objective - Patient Data Reviewed Vital Signs: Yes Vital Signs: Vital Signs x48h Temp Pulse Resp BP BP Pulse Ox 04/01/17 07:37 36.8 C 89 20 122/69 94 04/01/17 03:40 36.4 C L 86 20 119/70 99 Intake & Output: Intake and Output Totals x24h 03/30/17 03/31/17 04/01/17 23:59 23:59 23:59 Intake Total 5717.5 7940.0 3003.333 Output Total 4625 5300 2750 Balance 1092.5 2640.0 253.333 - Lab Results Lab Results: 04/01/17 05:00 04/01/17 05:00 Other Lab Results: Lab Results x24hrs 04/01/17 04/01/17 04/01/17 Range/Units 05:00 05:00 05:00 WBC (4.8-10.8) x10^3/uL RBC (4.70-6.10) 10^6/uL Hgb (14.0-18.0) g/dL Hct (42.0-52.0) % MCV (80.0-94.0) fL MCH (27.0-31.0) pg MCHC (32.0-36.0) g/dL RDW (12.0-15.0) % Plt Count (130-450) 10^3/uL MPV (7.4-11.4) fL Neut # (1.5-6.6) 10^3/uL Lymph # (1.5-3.5) 10^3/uL [place] # (0.0-1.0) 10^3/uL Eos # (0.0-0.7) 10^3/uL Baso # (0.0-0.1) 10^3/uL Absolute Nucleated RBC x10^3/uL Nucleated RBC % /100WBC ESR 16 H (0-15) mm/Hr VBG pH 7.401 (7.31-7.41) Ionized Calcium 1.09 L YES (1.15-1.33) mmol/L Sodium 135 (135-145) mmol/L Potassium 4.6 (3.5-5.0) mmol/L Chloride 97 L (101-111) mmol/L Carbon Dioxide 28 (21-32) mmol/L Anion Gap 10.0 (6-13) BUN 9 (6-20) mg/dL Creatinine 0.8 (0.6-1.2) mg/dL Estimated GFR (MDRD) 110 (>89) Glucose 150 H (70-100) mg/dL Calcium 8.2 L (8.5-10.3) mg/dL Magnesium 1.9 (1.7-2.8) mg/dL Total Bilirubin 0.5 (0.2-1.0) mg/dL AST 27 (10-42) IU/L ALT 20 (10-60) IU/L Alkaline Phosphatase 45 (42-121) IU/L C-Reactive Protein 20.2 H (0-1.0) mg/dL Total Protein 5.7 L (6.7-8.2) g/dL Albumin 2.5 L (3.2-5.5) g/dL Globulin 3.2 (2.1-4.2) g/dL Albumin/Globulin Ratio 0.8 L (1.0-2.2) Last Dose Date Last Dose Time Vancomycin Trough (5.0-15.0) ug/mL 04/01/17 03/31/17 Range/Units 05:00 13:58 WBC 14.1 H (4.8-10.8) x10^3/uL RBC 4.15 L (4.70-6.10) 10^6/uL Hgb 11.5 L (14.0-18.0) g/dL Hct 34.9 L (42.0-52.0) % MCV 84.1 (80.0-94.0) fL MCH 27.6 (27.0-31.0) pg MCHC 32.8 (32.0-36.0) g/dL RDW 14.4 (12.0-15.0) % Plt Count 311 (130-450) 10^3/uL MPV 7.7 (7.4-11.4) fL Neut # 13.1 H (1.5-6.6) 10^3/uL Lymph # 0.6 L (1.5-3.5) 10^3/uL [place] # 0.5 (0.0-1.0) 10^3/uL Eos # 0.0 (0.0-0.7) 10^3/uL Baso # 0.0 (0.0-0.1) 10^3/uL Absolute Nucleated RBC 0.01 x10^3/uL Nucleated RBC % 0.1 /100WBC ESR (0-15) mm/Hr VBG pH (7.31-7.41) Ionized Calcium (1.15-1.33) mmol/L Sodium (135-145) mmol/L Potassium (3.5-5.0) mmol/L Chloride (101-111) mmol/L Carbon Dioxide (21-32) mmol/L Anion Gap (6-13) BUN (6-20) mg/dL Creatinine (0.6-1.2) mg/dL Estimated GFR (MDRD) (>89) Glucose (70-100) mg/dL Calcium (8.5-10.3) mg/dL Magnesium (1.7-2.8) mg/dL Total Bilirubin (0.2-1.0) mg/dL AST (10-42) IU/L ALT (10-60) IU/L Alkaline Phosphatase (42-121) IU/L C-Reactive Protein (0-1.0) mg/dL Total Protein (6.7-8.2) g/dL Albumin (3.2-5.5) g/dL Globulin (2.1-4.2) g/dL Albumin/Globulin Ratio (1.0-2.2) Last Dose Date 03/31/17 Last Dose Time 0723 Vancomycin Trough 7.1 (5.0-15.0) ug/mL - Imaging Results Radiology Imaging: positive: Final report received - Current Medications Current Medications: Current Medications Generic Name Dose Route Start Last Admin Trade Name Freq PRN Reason Stop Dose Admin Acetaminophen 650 mg 03/28/17 21:24 03/31/17 16:20 Tylenol PO 650 mg Q4HR PRN Administration Pain 1 to 4 Docusate Sodium 250 - 500 mg 03/29/17 21:00 03/31/17 09:40 Colace 250mg Capsule PO Not Given DAILY CATA Enoxaparin Sodium 40 mg 03/29/17 09:00 03/31/17 09:53 Lovenox SUBQ 40 mg DAILY CATA Administration Famotidine 20 mg 03/29/17 09:00 03/31/17 09:54 Pepcid PO 20 mg DAILY CATA Administration Hydromorphone HCl 1 mg 03/31/17 09:00 04/01/17 09:30 Dilaudid Inj Syringe IVP 1 mg Q2HR PRN Administration PAIN 8-10 Piperacillin Sod/Tazobactam 100 mls @ 200 mls/hr 03/31/17 14:00 04/01/17 08: 26 Sod 3.375 gm/ Sodium Chloride IV Infused Q6H CATA Infusion Vancomycin/Sodium Chloride 2 gm in 500 mls @ 250 mls/hr 03/31/17 16:00 06:58 Vanco/Sod Chloride 0.9% IV Infused Q12H CATA Infusion Acetaminophen 100 mls @ 400 mls/hr 03/31/17 22:00 04/01/17 05:04 Ofirmev IV Not Given Q6H CATA Potassium Chloride/Sodium Chloride 1,000 mls @ 100 mls/hr 03/31/17 21:38 08/17 07:48 Normal Saline 0.9% W/20 Meq Kcl IV 100 mls/hr .Q10H CATA Administration Nicotine 1 patch 03/28/17 23:00 03/31/17 09:54 Nicoderm TOP 1 patch DAILY CATA Administration Oxycodone HCl 5 mg 03/28/17 21:24 03/31/17 02:17 Roxicodone PO 5 mg Q4HR PRN Administration Pain 5 to 7 Oxycodone HCl 10 mg 03/28/17 21:24 04/01/17 01:00 Roxicodone PO 10 mg Q4HR PRN Administration Pain 8 to 10 Pantoprazole Sodium 40 mg 04/01/17 07:00 04/01/17 06:52 Protonix PO 40 mg QDAC CATA Administration Polyethylene Glycol 17 gm 03/29/17 09:00 03/31/17 09:41 Miralax PO Not Given DAILY CATA Senna 8.6 - 17.2 mg 03/29/17 21:00 03/31/17 09:43 Senokot PO Not Given DAILY CATA Sodium Chloride 10 ml 03/28/17 22:00 04/01/17 09:30 Normal Saline Flush 0.9% IVP 10 ml Q8HR CATA Administration Sodium Chloride 10 ml 03/30/17 11:13 04/01/17 06:53 Normal Saline Flush 0.9% IVP 10 ml PRN PRN Administration NEEDED PER PROVIDER ORDERS Sodium Chloride 10 ml 03/31/17 22:00 04/01/17 04:57 Normal Saline Flush 0.9% IVP 10 ml Q8HR CATA Administration Zolpidem Tartrate 5 mg 03/28/17 21:24 03/28/17 23:56 Ambien PO 5 mg QPM PRN Administration Insomnia - Physical Exam Wound/Incisions: positive: Other (persistent erythema right buttock) General Appearance: positive: No acute distress Respiratory: positive: No respiratory distress Cardiovascular: positive: Regular rate & rhythm Abdomen: positive: Non-tender. negative: Guarding, Rebound Extremities: positive: No pedal edema Neurologic/Psychiatric: positive: Oriented x3 Impression/Plan - Problem List Problem List: s/p Incision and drainage of right buttock. - patient to shower today. Will repack wound after shower. - Continue antibiotics - Patient to clean buttock and anal area thoroughly after each bowel movement - continue to monitor leukocytosis
[2017-04-01] MEDS: ACETAMINOPHEN 325 MG TABLET PO PRN (10:28)
[2017-04-01] MEDS: FAMOTIDINE 20 MG TABLET PO SCH (10:28)
[2017-04-01] MEDS: POLYETHYLENE GLYCOL 3350 17 GM PACKET PO SCH (10:30)
[2017-04-01] MEDS: SENNA 8.6 MG TABLET PO SCH (10:30)
[2017-04-01] MEDS: DOCUSATE SODIUM 250 MG CAPSULE PO SCH (10:30)
[2017-04-01] MEDS: ENOXAPARIN 40 MG/0.4 ML SYRINGE SUBQ SCH (10:30)
[2017-04-01] MEDS: NICOTINE 21 MG PATCH TOP SCH (10:31)
--- NOTE | 2017-04-01 11:22 | PROVIDER PROGRESS NOTE ---
Subjective - Subjective Pt reports feeling: Improved Subjective: pt report he feel much better, he had a good sleep last night, pain is a good controlled. Current Medications - Current Medications Current Medications: Active Medications Docusate Sodium (Colace 250mg Capsule) 250 - 500 mg PO DAILY [facility] Last Admin: 04/01/17 10:30 Dose: Not Given Enoxaparin Sodium (Lovenox) 40 mg SUBQ DAILY [facility] Last Admin: 04/01/17 10:30 Dose: 40 mg Famotidine (Pepcid) 20 mg PO DAILY [facility] Last Admin: 04/01/17 10:28 Dose: 20 mg Hydromorphone HCl (Dilaudid Inj Syringe) 1 mg IVP Q2HR PRN PRN Reason: PAIN 8-10 Last Admin: 04/01/17 09:30 Dose: 1 mg Hydromorphone HCl (Dilaudid Inj Syringe) 0.5 mg IVP Q1HR PRN PRN Reason: Moderate PAIN Piperacillin Sod/Tazobactam (Sod 3.375 gm/ Sodium Chloride) 100 mls @ 200 mls/ hr IV Q6H [facility] Last Infusion: 04/01/17 08:26 Dose: Infused Vancomycin/Sodium Chloride (Vanco/Sod Chloride 0.9%) 2 gm in 500 mls @ 250 mls/ hr IV Q12H [facility] Last Infusion: 04/01/17 06:58 Dose: Infused Potassium Chloride/Sodium Chloride (Normal Saline 0.9% W/20 Meq Kcl) 1,000 mls @ 100 mls/hr IV .Q10H [facility] Last Admin: 04/01/17 07:48 Dose: 100 mls/hr Nicotine (Nicoderm) 1 patch TOP DAILY [facility] Last Admin: 04/01/17 10:31 Dose: 1 patch Ondansetron HCl (Zofran Inj) 4 mg IVP Q6HR PRN PRN Reason: Nausea / Vomiting Oxycodone HCl (Roxicodone) 10 mg PO Q4HR PRN PRN Reason: Pain 8 to 10 Oxycodone/Acetaminophen (Percocet 5 Mg/325 Mg) 1 tab PO Q4HR PRN PRN Reason: PAIN Pantoprazole Sodium (Protonix) 40 mg PO QDAC [facility] Last Admin: 04/01/17 06:52 Dose: 40 mg Prochlorperazine Edisylate (Compazine Inj) 10 mg IVP Q6HR PRN PRN Reason: Nausea / Vomiting Sodium Chloride (Normal Saline Flush 0.9%) 10 ml IVP Q8HR [facility] Last Admin: 04/01/17 04:57 Dose: 10 ml Sodium Chloride (Normal Saline Flush 0.9%) 10 ml IVP PRN PRN PRN Reason: NEEDED PER PROVIDER ORDERS Temazepam (Restoril) 7.5 mg PO QPM PRN PRN Reason: Insomnia Zolpidem Tartrate (Ambien) 5 mg PO QPM PRN PRN Reason: Insomnia Last Admin: 03/28/17 23:56 Dose: 5 mg Objective - Vital Signs/Intake & Output Reviewed Vital Signs: Yes Vital Signs: Vital Signs x48h Temp Pulse Resp BP BP Pulse Ox 04/01/17 07:37 36.8 C 89 20 122/69 94 04/01/17 03:40 36.4 C L 86 20 119/70 99 Intake & Output: Intake & Output 03/29/17 03/30/17 03/31/17 04/01/17 23:59 23:59 23:59 23:59 Intake Total 5740 5717.5 7940.0 3003.333 Output Total 3925 4625 5300 2750 Balance 1815 1092.5 2640.0 253.333 - Objective General Appearance: positive: No acute distress - Lab Results Fish Bones: 04/01/17 05:00 04/01/17 05:00 Other Labs: Lab Results x24hrs 04/01/17 04/01/17 04/01/17 Range/Units 05:00 05:00 05:00 WBC (4.8-10.8) x10^3/uL RBC (4.70-6.10) 10^6/uL Hgb (14.0-18.0) g/dL Hct (42.0-52.0) % MCV (80.0-94.0) fL MCH (27.0-31.0) pg MCHC (32.0-36.0) g/dL RDW (12.0-15.0) % Plt Count (130-450) 10^3/uL MPV (7.4-11.4) fL Neut # (1.5-6.6) 10^3/uL Lymph # (1.5-3.5) 10^3/uL Carolina # (0.0-1.0) 10^3/uL Eos # (0.0-0.7) 10^3/uL Baso # (0.0-0.1) 10^3/uL Absolute Nucleated RBC x10^3/uL Nucleated RBC % /100WBC ESR 16 H (0-15) mm/Hr VBG pH 7.401 (7.31-7.41) Ionized Calcium 1.09 L YES (1.15-1.33) mmol/L Sodium 135 (135-145) mmol/L Potassium 4.6 (3.5-5.0) mmol/L Chloride 97 L (101-111) mmol/L Carbon Dioxide 28 (21-32) mmol/L Anion Gap 10.0 (6-13) BUN 9 (6-20) mg/dL Creatinine 0.8 (0.6-1.2) mg/dL Estimated GFR (MDRD) 110 (>89) Glucose 150 H (70-100) mg/dL Calcium 8.2 L (8.5-10.3) mg/dL Magnesium 1.9 (1.7-2.8) mg/dL Total Bilirubin 0.5 (0.2-1.0) mg/dL AST 27 (10-42) IU/L ALT 20 (10-60) IU/L Alkaline Phosphatase 45 (42-121) IU/L C-Reactive Protein 20.2 H (0-1.0) mg/dL Total Protein 5.7 L (6.7-8.2) g/dL Albumin 2.5 L (3.2-5.5) g/dL Globulin 3.2 (2.1-4.2) g/dL Albumin/Globulin Ratio 0.8 L (1.0-2.2) Last Dose Date Last Dose Time Vancomycin Trough (5.0-15.0) ug/mL 04/01/17 03/31/17 Range/Units 05:00 13:58 WBC 14.1 H (4.8-10.8) x10^3/uL RBC 4.15 L (4.70-6.10) 10^6/uL Hgb 11.5 L (14.0-18.0) g/dL Hct 34.9 L (42.0-52.0) % MCV 84.1 (80.0-94.0) fL MCH 27.6 (27.0-31.0) pg MCHC 32.8 (32.0-36.0) g/dL RDW 14.4 (12.0-15.0) % Plt Count 311 (130-450) 10^3/uL MPV 7.7 (7.4-11.4) fL Neut # 13.1 H (1.5-6.6) 10^3/uL Lymph # 0.6 L (1.5-3.5) 10^3/uL Carolina # 0.5 (0.0-1.0) 10^3/uL Eos # 0.0 (0.0-0.7) 10^3/uL Baso # 0.0 (0.0-0.1) 10^3/uL Absolute Nucleated RBC 0.01 x10^3/uL Nucleated RBC % 0.1 /100WBC ESR (0-15) mm/Hr VBG pH (7.31-7.41) Ionized Calcium (1.15-1.33) mmol/L Sodium (135-145) mmol/L Potassium (3.5-5.0) mmol/L Chloride (101-111) mmol/L Carbon Dioxide (21-32) mmol/L Anion Gap (6-13) BUN (6-20) mg/dL Creatinine (0.6-1.2) mg/dL Estimated GFR (MDRD) (>89) Glucose (70-100) mg/dL Calcium (8.5-10.3) mg/dL Magnesium (1.7-2.8) mg/dL Total Bilirubin (0.2-1.0) mg/dL AST (10-42) IU/L ALT (10-60) IU/L Alkaline Phosphatase (42-121) IU/L C-Reactive Protein (0-1.0) mg/dL Total Protein (6.7-8.2) g/dL Albumin (3.2-5.5) g/dL Globulin (2.1-4.2) g/dL Albumin/Globulin Ratio (1.0-2.2) Last Dose Date 03/31/17 Last Dose Time 0723 Vancomycin Trough 7.1 (5.0-15.0) ug/mL Assessment/Plan - Problem List (1) Sepsis Impression: (1) Sepsis Conclusion/Plan: pt had I/D on yesterday.pt report he feel much better, has a good sleep, and a good controlled pain. CRP/ESR continue down, WBC is nearly the same. continue antibiotics treatment pain control IVF follow up surgeon follow up blood and wound culture pt report he feel better. WBC is down from 19 to 14, CRP is down from [address] done last night is reviewed. The findings are suspicious for infection with gas-forming organism with abscess formation. I called Dr. Galeas to report the finding, and will follow up. Pt state he does not want to do procedure on today. He does not want to be NPO today and he want to watch the football game and eat the food. continue antibiotic of Zosyn and vancomycin IVF NS pain control lab and vital monitor pt pt had slight elevated temperature last night, WBC returned the original number , more drainage. called central team/PICC team to set up central line to pt called and discussed with surgeon for next plan continue zosyn and vancomycin follow up blood and wound culture IVF NS pain control daily lab test, vital monitor Patient presented to the emergency department with urinary retention, abdominal pain and rectal pain with rectal drainage. On presentation the patient was found to have leukocytosis of 18.2 with a bandemia of 28%, he was also febrile up to 38.1 and tachycardic in the 120s. Patient's lactic acid was within normal limits and blood pressure was stable. The patient was found to have cellulitis in the perirectal area and CT of abdomen pelvis revealed marked rectal wall thickening and infiltration of adjacent fat with differential considerations including proctitis with extensive surrounding cellulitis predisposed to perirectal abscess formation versus hematoma. Patient was admitted for sepsis secondary to perirectal cellulitis and likely abscess. Plan: Patient be placed on IV Zosyn and Flagyl Patient will be given IV fluids We will continue to monitor patient's vitals closely Monitor CBC and lactate Surgery consult for possible I&D Qualifiers: Sepsis type: sepsis due to unspecified organism Qualified Code(s): A41.9 - Sepsis, unspecified organism (2) Rectal cellulitis Conclusion/Plan: surgery dressing is clean, will follow up surgeon continue antibiotics, pain control IVF Blood culture negative preliminary wound culture pending, will follow up mild to moderate drainage, still erythema, pain is reduced per pt's statement continue current treatment preliminary Blood culture is negative, wound culture is pending, will follow up still erythema, continue antibiotic treatment follow up blood and wound culture pain control surgeon saw pt, will follow up, now pt has enemas with Flagyl continue pain control surgeon recommend no urgent procedure, pt begin to have diet Patient presented with rectal pain, serosanguineous drainage which was foul- smelling. Patient appears to have rectal cellulitis with induration around the perirectal area concerning for forming phlegmon or abscess. Patient's CT also confirms the extensive cellulitis and likely forming perirectal abscess. The patient presented with sepsis. Because of this cellulitis appears to be the use of a sex toy inserted in the patient's anus. Plan: Place patient on IV Zosyn and Flagyl Give IV fluids Surgical consult for possible I&D N.p.o. after midnight for possible I&D Pain control with oxycodone and IV Dilaudid (3) Urinary retention Conclusion/Plan: remain until infection is better controlled continue lopez until infection controlled PSA reviewed, unremarkable remain lopez now until infection controlled Patient has had urinary retention for the last 5 days. This is likely secondary to the severity of the patient's rectal infection and abscess which likely is compressing the patient's ureters and causing urinary retention. Plan: Lopez catheter placed and will remain in place until patient's infection starts to resolve. Check PSA (4) Hypokalemia Conclusion/Plan: resolved slight increase to 3.1, add potassium IV and PO Patient presents with potassium of 3.0 this is likely secondary to dehydration from infection and urinary retention. Patient's potassium will be replaced with his IV fluid Monitor potassium daily (5) Hyponatremia Conclusion/Plan: today Na 134 Na 132 today, will consider once pill of NaCl Na upto 134, continue IVF NS Patient appears to have hypovolemic hyponatremia this is likely secondary to his sepsis and dehydration. Patient will be given IV fluids We will monitor patient's sodium. (6) Tobacco abuse Conclusion/Plan: continue nicotin patch, advise pt quit smoking cigarette. Qualifiers: Sepsis type: sepsis due to unspecified organism Qualified Code(s): A41.9 - Sepsis, unspecified organism
[2017-04-01] MEDS: oxyCOD/ACETAMIN 5 MG/325 MG TABLET PO PRN (19:45)
[2017-04-02] MEDS: HYDROmorphone 1 MG/ML SYRINGE IVP PRN ×7 (01:10→20:31)
[2017-04-02] MEDS: PIPERACILLIN/TAZOBACTAM 3.375 GM in SODIUM CHLORIDE 0.9% MINIBAG 100 ML IV SCH ×3 (01:47→14:57)
[2017-04-02 03:41] LABS: HCT - HEMATOCRIT 34.6 % (42.0-52.0); HGB - HEMOGLOBIN 11.4 g/dL (14.0-18.0); MEAN CORPUSCULAR HEMOGLOBIN 27.8 pg (27.0-31.0); MEAN CORPUSCULAR HGB CONC 32.9 g/dL (32.0-36.0); MEAN CORPUSCULAR VOLUME 84.5 fL (80.0-94.0); MEAN PLATELET VOLUME 7.2 fL (7.4-11.4); RED BLOOD COUNT 4.1 10^6/uL (4.70-6.10); RED CELL DISTRIBUTION WIDTH 14.3 % (12.0-15.0); WHITE BLOOD COUNT 8.1 x10^3/uL (4.8-10.8)
[2017-04-02 03:55] LABS: ALBUMIN/GLOBULIN RATIO 0.7 (1.0-2.2); BILIRUBIN,TOTAL 0.5 mg/dL (0.2-1.0); BUN - BLOOD UREA NITROGEN 8 mg/dL (6-20); CALCIUM 7.8 mg/dL (8.5-10.3); CARBON DIOXIDE - CO2 27 mmol/L (21-32); CHLORIDE 101 mmol/L (101-111); CREATININE 0.6 mg/dL (0.6-1.2); GFR - MDRD 153 (>89); GLUCOSE 135 mg/dL (70-100); MAGNESIUM 1.5 mg/dL (1.7-2.8); POTASSIUM 3.7 mmol/L (3.5-5.0); SODIUM 135 mmol/L (135-145); TOTAL PROTEIN 5.5 g/dL (6.7-8.2)
[2017-04-02] MEDS: VANCOMYCIN 2 GM/NS 500 ML 2 GM/500 ML BAG IV SCH (04:13)
[2017-04-02 04:28] LABS: VBG PH 7.379 (7.31-7.41)
[2017-04-02 04:29] LABS: CALCIUM, IONIZED 1.12 mmol/L (1.15-1.33)
[2017-04-02] MEDS: PANTOPRAZOLE 40 MG TABLET PO SCH (06:07)
[2017-04-02] MEDS: oxyCODONE 5 MG TABLET PO PRN (06:07)
[2017-04-02] MEDS: SODIUM CHLORIDE FLUSH 0.9% 10 ML SYRINGE IVP SCH ×3 (06:18→20:07)
[2017-04-02] MEDS: ENOXAPARIN 40 MG/0.4 ML SYRINGE SUBQ SCH (08:28)
[2017-04-02] MEDS: DOCUSATE SODIUM 250 MG CAPSULE PO SCH (08:29)
[2017-04-02] MEDS: FAMOTIDINE 20 MG TABLET PO SCH (08:29)
[2017-04-02] MEDS: NICOTINE 21 MG PATCH TOP SCH (08:29)
[2017-04-02] MEDS: SODIUM CHLORIDE FLUSH 0.9% 10 ML SYRINGE IVP PRN ×2 (10:31→20:08)
--- NOTE | 2017-04-02 11:45 | PROVIDER PROGRESS NOTE ---
Subjective - General Admit Date: 03/28/17 Procedure Date: 03/31/17 Post Op Days: 2 Procedure Performed: I and D perirectal abscess - Review of Systems Wound/Incisions: positive: Other (persistent erythema right buttock. Copious amount of purulent drainage from incision) Drain Output Description: yellowish brown Approximate mls Output: Large amount General: positive: No symptoms HEENT: positive: No symptoms Pulmonary: positive: No symptoms Cardiovascular: positive: No symptoms Gastrointestinal: positive: No symptoms, Flatus (Patient states that he is very gassy.), Other (denies BM for past several days.) Musculoskeletal: positive: No symptoms Skin: positive: Other (improved right gluteal erythema) Psychiatric: positive: Mood lability, Anxiety, Other (crying during discussion to return to OR.) Objective - Patient Data Reviewed Vital Signs: Yes Vital Signs: Vital Signs x48h Temp Pulse Resp BP Pulse Ox 04/02/17 07:46 36.5 C 91 20 138/87 H 100 04/02/17 05:59 36.8 C 86 17 117/77 100 Intake & Output: Intake and Output Totals x24h 03/31/17 04/01/17 04/02/17 23:59 23:59 23:59 Intake Total 7940.0 5003.333 1560 Output Total 5300 5375 600 Balance 2640.0 -371.667 960 - Lab Results Lab Results: 04/02/17 03:30 04/02/17 03:30 Other Lab Results: Lab Results x24hrs 04/02/17 04/02/17 04/02/17 Range/Units 03:30 03:30 03:30 WBC (4.8-10.8) x10^3/uL RBC (4.70-6.10) 10^6/uL Hgb (14.0-18.0) g/dL Hct (42.0-52.0) % MCV (80.0-94.0) fL MCH (27.0-31.0) pg MCHC (32.0-36.0) g/dL RDW (12.0-15.0) % Plt Count (130-450) 10^3/uL MPV (7.4-11.4) fL VBG pH 7.379 (7.31-7.41) Ionized Calcium 1.12 L YES (1.15-1.33) mmol/L Sodium 135 (135-145) mmol/L Potassium 3.7 (3.5-5.0) mmol/L Chloride 101 (101-111) mmol/L Carbon Dioxide 27 (21-32) mmol/L Anion Gap 7.0 (6-13) BUN 8 (6-20) mg/dL Creatinine 0.6 (0.6-1.2) mg/dL Estimated GFR (MDRD) 153 (>89) Glucose 135 H (70-100) mg/dL Calcium 7.8 L (8.5-10.3) mg/dL Magnesium 1.5 L (1.7-2.8) mg/dL Total Bilirubin 0.5 (0.2-1.0) mg/dL AST 26 (10-42) IU/L ALT 22 (10-60) IU/L Alkaline Phosphatase 42 (42-121) IU/L Total Protein 5.5 L (6.7-8.2) g/dL Albumin 2.2 L (3.2-5.5) g/dL Globulin 3.3 (2.1-4.2) g/dL Albumin/Globulin Ratio 0.7 L (1.0-2.2) Last Dose Date 04/01/17 Last Dose Time 1914 Vancomycin Trough 7.5 (5.0-15.0) ug/mL 04/02/17 Range/Units 03:30 WBC 8.1 (4.8-10.8) x10^3/uL RBC 4.10 L (4.70-6.10) 10^6/uL Hgb 11.4 L (14.0-18.0) g/dL Hct 34.6 L (42.0-52.0) % MCV 84.5 (80.0-94.0) fL MCH 27.8 (27.0-31.0) pg MCHC 32.9 (32.0-36.0) g/dL RDW 14.3 (12.0-15.0) % Plt Count 385 (130-450) 10^3/uL MPV 7.2 L (7.4-11.4) fL VBG pH (7.31-7.41) Ionized Calcium (1.15-1.33) mmol/L Sodium (135-145) mmol/L Potassium (3.5-5.0) mmol/L Chloride (101-111) mmol/L Carbon Dioxide (21-32) mmol/L Anion Gap (6-13) BUN (6-20) mg/dL Creatinine (0.6-1.2) mg/dL Estimated GFR (MDRD) (>89) Glucose (70-100) mg/dL Calcium (8.5-10.3) mg/dL Magnesium (1.7-2.8) mg/dL Total Bilirubin (0.2-1.0) mg/dL AST (10-42) IU/L ALT (10-60) IU/L Alkaline Phosphatase (42-121) IU/L Total Protein (6.7-8.2) g/dL Albumin (3.2-5.5) g/dL Globulin (2.1-4.2) g/dL Albumin/Globulin Ratio (1.0-2.2) Last Dose Date Last Dose Time Vancomycin Trough (5.0-15.0) ug/mL - Current Medications Current Medications: Current Medications Generic Name Dose Route Start Last Admin Trade Name Freq PRN Reason Stop Dose Admin Docusate Sodium 250 - 500 mg 03/29/17 21:00 04/02/17 08:29 Colace 250mg Capsule PO Not Given DAILY [facility] Enoxaparin Sodium 40 mg 03/29/17 09:00 04/02/17 08:28 Lovenox SUBQ 40 mg DAILY [facility] Administration Famotidine 20 mg 03/29/17 09:00 04/02/17 08:29 Pepcid PO 20 mg DAILY [facility] Administration Hydromorphone HCl 1 mg 03/31/17 09:00 04/02/17 10:31 Dilaudid Inj Syringe IVP 1 mg Q2HR PRN Administration PAIN 8-10 Piperacillin Sod/Tazobactam 100 mls @ 200 mls/hr 03/31/17 14:00 04/02/17 10: 30 Sod 3.375 gm/ Sodium Chloride IV Infused Q6H [facility] Infusion Potassium Chloride/Sodium Chloride 1,000 mls @ 100 mls/hr 03/31/17 21:38 08/17 23:09 Normal Saline 0.9% W/20 Meq Kcl IV 100 mls/hr .Q10H [facility] Administration Nicotine 1 patch 03/28/17 23:00 04/02/17 08:29 Nicoderm TOP 1 patch DAILY [facility] Administration Oxycodone HCl 10 mg 04/01/17 11:08 04/02/17 06:07 Roxicodone PO 10 mg Q4HR PRN Administration Pain 8 to 10 Oxycodone/Acetaminophen 1 tab 04/01/17 11:06 04/01/17 19:45 Percocet 5 Mg/325 Mg PO 1 tab Q4HR PRN Administration PAIN Pantoprazole Sodium 40 mg 04/01/17 07:00 04/02/17 06:07 Protonix PO 40 mg QDAC [facility] Administration Sodium Chloride 10 ml 03/31/17 22:00 04/02/17 06:18 Normal Saline Flush 0.9% IVP Not Given Q8HR [facility] Sodium Chloride 10 ml 03/31/17 21:34 04/02/17 10:31 Normal Saline Flush 0.9% IVP 10 ml PRN PRN Administration NEEDED PER PROVIDER ORDERS Zolpidem Tartrate 5 mg 03/28/17 21:24 03/28/17 23:56 Ambien PO 5 mg QPM PRN Administration Insomnia - Physical Exam Wound/Incisions: positive: Drainage, Erythema, Other (persistent copious drainage from buttock.) Respiratory: positive: No respiratory distress Cardiovascular: positive: Regular rate & rhythm Abdomen: positive: Non-tender Extremities: positive: No pedal edema Neurologic/Psychiatric: positive: Oriented x3, Other Impression/Plan - Problem List Problem List: Gluteal abscess with persistent copious drainage from incision - Plan to return to OR for second washout and exploration. - Discussed with patient to remain NPO for procedure. Also discussed with patient the possible need for a temproary diverting ostomy if this infection can not be contained with drainage alone. At this point he became tearful and stated that he wanted to leave the hospital. I explained that without appropriate treatment he would not improve. He will wait for his mother to arrive prior to agreeing for the washout procedure.
[2017-04-02] MEDS ORDERED: VANCOMYCIN 1.5 GM/NS 500 ML 1.5 GM/500 ML BAG IV SCH (12:00)
[2017-04-02] MEDS ORDERED: LACTATED RINGERS 1,000 ML IV ONE ×4 (14:12→18:36)
[2017-04-02] MEDS ORDERED: GLYCOPYRROLATE 1 MG/5 ML VIAL IVP ONE (16:20)
[2017-04-02] MEDS ORDERED: PROPOFOL 200 MG/20 ML VIAL IVP ONE (16:20)
[2017-04-02] MEDS ORDERED: fentaNYL 100 MCG/2 ML VIAL IVP ONE (16:20)
[2017-04-02] MEDS ORDERED: DEXAMETHASONE 4 MG/ML VIAL IVP ONE (16:20)
[2017-04-02] MEDS ORDERED: MIDAZOLAM 2 MG/2 ML VIAL IVP ONE (16:20)
[2017-04-02] MEDS ORDERED: ePHEDrine 50 MG/ML VIAL IVP ONE (16:20)
[2017-04-02] MEDS ORDERED: NEOSTIGMINE 1 MG/1 ML 10 ML MDV IVP ONE (16:20)
[2017-04-02] MEDS ORDERED: ONDANSETRON 4 MG/2 ML VIAL IVP ONE (16:20)
[2017-04-02] MEDS: HYDROmorphone 1 MG/ML SYRINGE ONE ×2 (18:58→19:20)
--- NOTE | 2017-04-02 19:48 | OPERATIVE REPORT ---
DATE OF SURGERY: 04/02/2017 00:00:00 PREOPERATIVE DIAGNOSIS: Perirectal abscess. POSTOPERATIVE DIAGNOSIS: Perirectal abscess with full-thickness, severe grade IV rectal injury NAME OF PROCEDURE: Washout of perirectal abscess, rigid sigmoidoscopy and laparoscopic-assisted diverting loop colostomy. SURGEON: Gabrielle Pan MD ANESTHESIOLOGIST: AARON Capone. ANESTHESIA: General. INDICATION FOR PROCEDURE: This is a 36-year-old gentleman who was admitted 4 days ago with a perirectal cellulitis. He was admitted to the medical service and placed on IV antibiotics. A CT scan was repeated 2 days later for persistent erythema and concern for an underlying abscess. On the repeat CT scan , he was noted to have a perirectal abscess. He was taken to the operating room that day for an incision and drainage of the perirectal abscess. During this procedure, he was noted to have a fistulous connection to the distal rectum with an opening of approximately 1 cm. The patient was transferred back to the floor postoperatively. He continued to have a large amount of purulent drainage the following day. On postop day 2, the purulent drainage was not improving, and he is taken back to the operating room for re-exploration of the wound. PROCEDURE AND FINDINGS: After obtaining informed consent from the patient, he was brought into the operating room and positioned on the operating table in the lithotomy position, taking note of pressure points. The patient was intubated by Anesthesia. He was then prepped and draped in the usual sterile fashion, and a time-out was taken according to protocol. The Chepe drain which had been placed was removed. The abscess cavity was inspected with blunt dissection using my fingers, and he was noted to have a very large abscess cavity with copious amounts of purulent fluid that drained around the opening. At this point, I performed a rigid proctosigmoidoscopy, and a full-thickness rectal laceration was noted extending from approximately 2 cm from the anal verge proximally to approximately 10 cm from the anal verge. Additionally, there was devitalized tissue encompassing approximately one-third of the circumference of the rectal wall. An anal exam was also performed which confirmed these findings. The previously made gluteal incision was then extended towards the patient's scrotum to open up the abscess cavity fully. Again, a copious amount of purulent drainage was evacuated. Cultures were obtained. The pulse lavage was then utilized to irrigate the area profusely with 3 liters of saline. Upon adequate washout of the perirectal space and complete evacuation of purulent fluid, the decision was made that the patient would require a diverting colostomy. I had spoken about this with the patient preoperatively. However, I was not intending to do the diverting colostomy at this time, but given the severity of his rectal injury and rapid progression of devitilization of the surrounding tissues, I felt it necessary to proceed. At this point, I scrubbed out of the procedure room, and I spoke with the patient' s mother about proceeding with a laparoscopic-assisted loop colostomy. She did agree for the procedure. The patient was therefore re-prepped and draped for the laparoscopic-assisted loop colostomy. He was placed in the supine position. A lopez catheter was inserted. He was prepped and draped in the usual sterile fashion. A second time-out was performed. A 5 mm incision was created in the supraumbilical region and deepened down to the umbilical stalk. A Veress needle was inserted in this location. The abdominal cavity was insufflated. A second 5 mm port was placed below the umbilicus in the midline. Using an Optiview trocar, the abdominal cavity was entered. The 5 mm umbilical incision was then exchanged for a 5 mm port. The sigmoid colon was visualized and was noted to be very redundant. The abdominal cavity was visualized, and no purulent fluid was noted within the peritoneal cavity. There was a small amount of serous fluid located in the pelvis. The patient was positioned in Trendelenburg and the distal aspect of the intraperitoneal rectum inspected, and no signs of inflammation were seen. The patient was tilted left side up, and his sigmoid colon was mobilized off of the lateral sidewall. Once adequate mobilization was achieved in order to bring up a loop ostomy, the sigmoid colon was grasped with a locking grasper. At this point, the abdominal cavity was allowed to desufflate. An area on the lateral sidewall just below the umbilicus was selected for placement of the loop ostomy. A circular incision was created and deepened down to the anterior rectus sheath. A cruciate incision was then created and the sigmoid colon visualized. The grasper was removed. A Argenis was placed on the sigmoid colon and brought through the incision. The ostomy easily fit through the incision without any signs of congestion. The laparoscopic instruments were then re- inserted into the abdominal cavity to ensure no twist in the colon, and none was noted. These were again removed and the abdominal cavity again allowed to desufflate. At this point, the skin incisions were then closed with 4-0 Monocryl , and Dermabond was applied. The ostomy was then subsequently matured. A small defect was created in the mesentery underlying the sigmoid colon, and the ostomy bar was placed in this defect. The anterior aspect of the colon was then opened using the cautery device. The ostomy was then matured in a Patricia fashion circumferentially with 3-0 vicryl sutures. The ostomy appliance was then placed. The patient was subsequently extubated and taken to the recovery room in stable condition. ESTIMATED BLOOD LOSS: 25 mL. FLUIDS RECEIVED: 2300 mL of crystalloid. URINE OUTPUT: 600 mL. COMPLICATIONS: None. SPECIMENS: Cultures from the abscess. JOB #: [id number] EXT JOB #:[id number]
[2017-04-02] MEDS: metroNIDAZOLE 500 MG/100 ML 500 MG/100 ML BAG IV SCH (20:08)
[2017-04-02] MEDS: VANCOMYCIN INJ 1 GM in SODIUM CHLORIDE 0.9% 250 ML IV SCH (21:44)
[2017-04-03] MEDS: LACTATED RINGERS 1,000 ML IV SCH ×3 (00:17→12:49)
[2017-04-03] MEDS: PIPERACILLIN/TAZOBACTAM 3.375 GM in SODIUM CHLORIDE 0.9% MINIBAG 100 ML IV SCH ×4 (00:19→14:57)
[2017-04-03] MEDS: VANCOMYCIN INJ 1 GM in SODIUM CHLORIDE 0.9% 250 ML IV SCH ×3 (00:22→12:52)
[2017-04-03] MEDS: metroNIDAZOLE 500 MG/100 ML 500 MG/100 ML BAG IV SCH ×3 (01:02→12:49)
[2017-04-03] MEDS: HYDROmorphone 1 MG/ML SYRINGE IVP PRN ×7 (01:04→21:31)
[2017-04-03] MEDS: SODIUM CHLORIDE FLUSH 0.9% 10 ML SYRINGE IVP SCH ×4 (05:38→21:31)
[2017-04-03] MEDS: PANTOPRAZOLE 40 MG TABLET PO SCH (06:37)
[2017-04-03] MEDS: DOCUSATE SODIUM 250 MG CAPSULE PO SCH (09:01)
[2017-04-03] MEDS: ENOXAPARIN 40 MG/0.4 ML SYRINGE SUBQ SCH (09:01)
[2017-04-03] MEDS: FAMOTIDINE 20 MG TABLET PO SCH (09:02)
[2017-04-03] MEDS: NICOTINE 21 MG PATCH TOP SCH (09:02)
--- NOTE | 2017-04-03 09:24 | PROVIDER PROGRESS NOTE ---
Subjective - General Admit Date: 03/28/17 Procedure Date: 04/02/17 Post Op Days: 1 Procedure Performed: washout perirectal abscess, lap assisted diverting colostomy - Review of Systems Wound/Incisions: positive: Drainage, Erythema, Other (Markedly improved erythema surrounding wound. Packing removed and persistend purulent drainage is present, however dsignificantly reduced quantity.) Drain Output Description: yellow Approximate mls Output: appx 10 cc General: positive: No symptoms HEENT: positive: No symptoms Pulmonary: positive: No symptoms Cardiovascular: positive: No symptoms Gastrointestinal: positive: No symptoms, Other (No function in stoma. Patient feels hungry.) Genitourinary: positive: Other (lopez in place) Musculoskeletal: positive: No symptoms Skin: positive: Other (improved right gluteal erythema) Psychiatric: positive: Mood lability, Anxiety, Other (crying during discussion to return to OR.) Objective - Patient Data Reviewed Vital Signs: Yes Vital Signs: Vital Signs x48h Temp Pulse Pulse Resp BP BP Pulse Ox 04/03/17 08:29 94 17 106/60 95 04/03/17 05:00 36.8 C 94 18 108/61 95 Intake & Output: Intake and Output Totals x24h 04/01/17 04/02/17 04/03/17 23:59 23:59 23:59 Intake Total 5003.333 3510 1900 Output Total 5375 2525 2800 Balance -371.667 985 -900 - Lab Results Lab Results: 04/02/17 03:30 04/02/17 03:30 Other Lab Results: Lab Results x24hrs 04/03/17 Range/Units 05:30 Magnesium 1.8 (1.7-2.8) mg/dL - Current Medications Current Medications: Current Medications Generic Name Dose Route Start Last Admin Trade Name Freq PRN Reason Stop Dose Admin Docusate Sodium 250 - 500 mg 03/29/17 21:00 04/03/17 09:01 Colace 250mg Capsule PO Not Given DAILY CATA Enoxaparin Sodium 40 mg 03/29/17 09:00 04/03/17 09:01 Lovenox SUBQ 40 mg DAILY CATA Administration Famotidine 20 mg 03/29/17 09:00 04/03/17 09:02 Pepcid PO Not Given DAILY CATA Hydromorphone HCl 1 mg 03/31/17 09:00 04/03/17 08:49 Dilaudid Inj Syringe IVP 1 mg Q2HR PRN Administration PAIN 8-10 Piperacillin Sod/Tazobactam 100 mls @ 200 mls/hr 03/31/17 14:00 04/03/17 08: 58 Sod 3.375 gm/ Sodium Chloride IV 200 mls/hr Q6H CATA Administration Vancomycin HCl 1 gm/ Sodium 250 mls @ 250 mls/hr 04/02/17 18:00 04/03/17 06: 37 Chloride IV Infused Q6H CATA Infusion Lactated Ringer's 1,000 mls @ 125 mls/hr 04/02/17 19:00 04/03/17 08:53 Lr IV 125 mls/hr .Q8H CATA Administration Metronidazole 500 mg in 100 mls @ 100 mls/hr 04/02/17 18:51 04/03/17 06:38 Flagyl 500 Mg/100 Ml IV Infused Q6HR CATA Infusion Nicotine 1 patch 03/28/17 23:00 04/03/17 09:02 Nicoderm TOP 1 patch DAILY CATA Administration Oxycodone HCl 10 mg 04/01/17 11:08 04/02/17 06:07 Roxicodone PO 10 mg Q4HR PRN Administration Pain 8 to 10 Oxycodone/Acetaminophen 1 tab 04/01/17 11:06 04/01/17 19:45 Percocet 5 Mg/325 Mg PO 1 tab Q4HR PRN Administration PAIN Pantoprazole Sodium 40 mg 04/01/17 07:00 04/03/17 06:37 Protonix PO 40 mg QDAC CATA Administration Sodium Chloride 10 ml 03/31/17 22:00 04/03/17 05:38 Normal Saline Flush 0.9% IVP 10 ml Q8HR CATA Administration Sodium Chloride 10 ml 03/31/17 21:34 04/02/17 20:08 Normal Saline Flush 0.9% IVP 10 ml PRN PRN Administration NEEDED PER PROVIDER ORDERS Zolpidem Tartrate 5 mg 03/28/17 21:24 03/28/17 23:56 Ambien PO 5 mg QPM PRN Administration Insomnia - Physical Exam Wound/Incisions: positive: Other (markedly improved erythema and purulent drainage, however some drainage still present originating from rectum.) General Appearance: positive: No acute distress Respiratory: positive: No respiratory distress Cardiovascular: positive: Regular rate & rhythm Abdomen: positive: Non-tender, No distention, Other (stoma pink with serous drainage) Extremities: positive: No pedal edema Neurologic/Psychiatric: positive: Oriented x3 Impression/Plan - Problem List Problem List: s/p washout of perirectal abscess, rigid proctosigmoidoscopy, lap assisted diverting loop colostomy POD 1 - Packing removed. Patient instructed to shower twice daily and RN will repack wound with betadine soaked kerlix BID. - continue broad spectrum antibiotics. Cultures from initial I and D are mulit- orgranisms. Repeat cultures are pending. Repeat WBC today. - DC lopez. - Clear liquids. Will advance as tolerated - Wound care and warehouse distribution manager consult pending for teaching for home care - Encourage ambulation
[2017-04-03] MEDS: SODIUM CHLORIDE FLUSH 0.9% 10 ML SYRINGE IVP PRN ×5 (10:43→21:31)
[2017-04-03 11:42] LABS: BASOPHILS % (AUTO) 0.4 %; EOSINOPHILS # (AUTO) 0.1 10^3/uL (0.0-0.7); EOSINOPHILS % (AUTO) 1.2 %; HCT - HEMATOCRIT 31.7 % (42.0-52.0); HGB - HEMOGLOBIN 10.5 g/dL (14.0-18.0); LYMPHOCYTES # (AUTO) 1.6 10^3/uL (1.5-3.5); LYMPHOCYTES % (AUTO) 16.2 %; MEAN CORPUSCULAR HEMOGLOBIN 27.4 pg (27.0-31.0); MEAN CORPUSCULAR HGB CONC 33.2 g/dL (32.0-36.0); MEAN CORPUSCULAR VOLUME 82.5 fL (80.0-94.0); MEAN PLATELET VOLUME 6.8 fL (7.4-11.4); MONOCYTES # (AUTO) 0.9 10^3/uL (0.0-1.0); NEUTROPHILS # (AUTO) 7.3 10^3/uL (1.5-6.6); NEUTROPHILS % (AUTO) 73.2 %; RED BLOOD COUNT 3.84 10^6/uL (4.70-6.10); RED CELL DISTRIBUTION WIDTH 14.6 % (12.0-15.0)
[2017-04-03] MEDS: KETOROLAC 30 MG/ML VIAL IVP PRN ×2 (13:10→18:41)
[2017-04-03] MEDS ORDERED: SODIUM CHLORIDE 0.9% MINIBAG 100 ML IV ONE (14:46)
[2017-04-03] MEDS: oxyCOD/ACETAMIN 5 MG/325 MG TABLET PO PRN ×2 (15:54→21:31)
[2017-04-03] MEDS ORDERED: metroNIDAZOLE 250 MG TABLET PO SCH (17:00)
[2017-04-03] MEDS: AMOX/CLAV 875 MG/125 MG TABLET PO SCH ×2 (17:30→21:31)
[2017-04-04] MEDS: HYDROmorphone 1 MG/ML SYRINGE IVP PRN ×2 (00:13→05:18)
[2017-04-04] MEDS: metroNIDAZOLE 250 MG TABLET PO SCH ×4 (00:13→16:40)
[2017-04-04] MEDS: KETOROLAC 30 MG/ML VIAL IVP PRN ×3 (00:13→16:39)
[2017-04-04] MEDS: SODIUM CHLORIDE FLUSH 0.9% 10 ML SYRINGE IVP PRN ×4 (00:13→16:40)
[2017-04-04] MEDS: oxyCODONE 5 MG TABLET PO PRN (05:15)
[2017-04-04] MEDS: PANTOPRAZOLE 40 MG TABLET PO SCH (06:24)
[2017-04-04] MEDS: ENOXAPARIN 40 MG/0.4 ML SYRINGE SUBQ SCH (08:06)
[2017-04-04] MEDS: DOCUSATE SODIUM 250 MG CAPSULE PO SCH (08:06)
[2017-04-04] MEDS: AMOX/CLAV 875 MG/125 MG TABLET PO SCH ×2 (08:06→18:20)
[2017-04-04] MEDS: FAMOTIDINE 20 MG TABLET PO SCH (08:08)
[2017-04-04] MEDS: NICOTINE 21 MG PATCH TOP SCH (08:08)
[2017-04-04 10:10] LABS: BASOPHILS # (AUTO) 0.1 10^3/uL (0.0-0.1); BASOPHILS % (AUTO) 0.6 %; EOSINOPHILS # (AUTO) 0.2 10^3/uL (0.0-0.7); EOSINOPHILS % (AUTO) 1.9 %; HCT - HEMATOCRIT 32.7 % (42.0-52.0); HGB - HEMOGLOBIN 10.8 g/dL (14.0-18.0); LYMPHOCYTES # (AUTO) 1.7 10^3/uL (1.5-3.5); LYMPHOCYTES % (AUTO) 20.4 %; MEAN CORPUSCULAR HEMOGLOBIN 27.6 pg (27.0-31.0); MEAN CORPUSCULAR HGB CONC 33.1 g/dL (32.0-36.0); MEAN CORPUSCULAR VOLUME 83.5 fL (80.0-94.0); MONOCYTES # (AUTO) 0.8 10^3/uL (0.0-1.0); MONOCYTES % (AUTO) 9.4 %; NEUTROPHILS # (AUTO) 5.5 10^3/uL (1.5-6.6); NEUTROPHILS % (AUTO) 67.7 %; RED BLOOD COUNT 3.91 10^6/uL (4.70-6.10); RED CELL DISTRIBUTION WIDTH 14.3 % (12.0-15.0); UNCORRECTED WHITE BLOOD COUNT 8.2 x10^3/uL; WHITE BLOOD COUNT 8.2 x10^3/uL (4.8-10.8)
[2017-04-04] MEDS: oxyCOD/ACETAMIN 5 MG/325 MG TABLET PO PRN ×2 (10:30→14:08)
--- NOTE | 2017-04-04 12:12 | PROVIDER PROGRESS NOTE ---
Subjective - General Admit Date: 03/28/17 Procedure Date: 04/02/17 Post Op Days: 2 Procedure Performed: washout perirectal abscess, lap assisted diverting colostomy - Review of Systems Wound/Incisions: positive: Erythema improving, Other (persistent purulent drainage) Drain Output Description: yellow General: positive: No symptoms HEENT: positive: No symptoms Pulmonary: positive: No symptoms Cardiovascular: positive: No symptoms Gastrointestinal: positive: No symptoms, Other (stool in ostomy) Genitourinary: positive: Other (lopez in place) Musculoskeletal: positive: No symptoms Skin: positive: Other (improved right gluteal erythema) Psychiatric: positive: Mood lability, Anxiety, Other (crying during discussion to return to OR.) Objective - Patient Data Reviewed Vital Signs: Yes Vital Signs: Vital Signs x48h Temp Pulse Resp BP Pulse Ox 04/04/17 08:11 36.7 C 98 19 124/73 98 04/04/17 05:18 36.3 C L 96 18 116/68 98 Intake & Output: Intake and Output Totals x24h 04/02/17 04/03/17 04/04/17 23:59 23:59 23:59 Intake Total 3510 4941.667 1900 Output Total 2525 5200 3300 Balance 985 -258.333 -1400 - Lab Results Lab Results: 04/04/17 06:00 04/02/17 03:30 Other Lab Results: Lab Results x24hrs 04/04/17 04/04/17 Range/Units 06:00 06:00 WBC 8.2 (4.8-10.8) x10^3/uL RBC 3.91 L (4.70-6.10) 10^6/uL Hgb 10.8 L (14.0-18.0) g/dL Hct 32.7 L (42.0-52.0) % MCV 83.5 (80.0-94.0) fL MCH 27.6 (27.0-31.0) pg MCHC 33.1 (32.0-36.0) g/dL RDW 14.3 (12.0-15.0) % Plt Count 540 H (130-450) 10^3/uL MPV 7.0 L (7.4-11.4) fL Neut # 5.5 (1.5-6.6) 10^3/uL Lymph # 1.7 (1.5-3.5) 10^3/uL [place] # 0.8 (0.0-1.0) 10^3/uL Eos # 0.2 (0.0-0.7) 10^3/uL Baso # 0.1 (0.0-0.1) 10^3/uL Absolute Nucleated RBC 0.00 x10^3/uL Nucleated RBC % 0.0 /100WBC Magnesium 1.9 (1.7-2.8) mg/dL - Current Medications Current Medications: Current Medications Generic Name Dose Route Start Last Admin Trade Name Freq PRN Reason Stop Dose Admin Amoxicillin/Clavulanate Potassium 1 tab 04/03/17 17:00 04/04/17 08:06 Augmentin 875/125 PO 1 tab BID CATA Administration Docusate Sodium 250 - 500 mg 03/29/17 21:00 04/04/17 08:06 Colace 250mg Capsule PO 250 mg DAILY CATA Administration Enoxaparin Sodium 40 mg 03/29/17 09:00 04/04/17 08:06 Lovenox SUBQ 40 mg DAILY CATA Administration Famotidine 20 mg 03/29/17 09:00 04/04/17 08:08 Pepcid PO 20 mg DAILY CATA Administration Hydromorphone HCl 1 mg 03/31/17 09:00 04/04/17 05:18 Dilaudid Inj Syringe IVP 1 mg Q2HR PRN Administration PAIN 8-10 Ketorolac Tromethamine 30 mg 04/02/17 18:52 04/04/17 08:09 Toradol Inj IVP 04/07/17 18:51 30 mg Q6HR PRN Administration PAIN Metronidazole 500 mg 04/04/17 00:00 04/04/17 05:54 Flagyl PO 500 mg Q6HR CATA Administration Nicotine 1 patch 03/28/17 23:00 04/04/17 08:08 Nicoderm TOP 1 patch DAILY CATA Administration Oxycodone HCl 10 mg 04/01/17 11:08 04/04/17 05:15 Roxicodone PO 10 mg Q4HR PRN Administration Pain 8 to 10 Oxycodone/Acetaminophen 1 tab 04/01/17 11:06 04/04/17 10:30 Percocet 5 Mg/325 Mg PO 1 tab Q4HR PRN Administration PAIN Pantoprazole Sodium 40 mg 04/01/17 07:00 04/04/17 06:24 Protonix PO Not Given QDAC CATA Sodium Chloride 10 ml 03/31/17 22:00 04/03/17 21:31 Normal Saline Flush 0.9% IVP 10 ml Q8HR CATA Administration Sodium Chloride 10 ml 03/31/17 21:34 04/04/17 06:01 Normal Saline Flush 0.9% IVP 30 ml PRN PRN Administration NEEDED PER PROVIDER ORDERS Zolpidem Tartrate 5 mg 03/28/17 21:24 03/28/17 23:56 Ambien PO 5 mg QPM PRN Administration Insomnia - Physical Exam Wound/Incisions: positive: Other (improved erythema. persistent purulent drainage from wound.) General Appearance: positive: No acute distress Respiratory: positive: No respiratory distress Cardiovascular: positive: Regular rate & rhythm Abdomen: positive: Non-tender, No distention, Other (stoma pink and viable) Rectal: positive: Other (purulent drainage from anus) Extremities: positive: No pedal edema Neurologic/Psychiatric: positive: Oriented x3 Impression/Plan - Problem List Problem List: perirectal abscess secondary to severe grade IV rectal laceration s/p I and D, washout, lap assisted loop colectomy - Tolerating regular diet. - Wound is improving. Leukocytosis normalized. Will plan for Vac therapy for management of persistent drainage. Discussed with [facility] to order Vac and plan for placement Saturday. Potential for DC home today if Mother can handle packing changes until vac is available Saturday. He will be set up for wound vac changes in the [facility] three times per week. - continue oral antibiotics.
[2017-04-04] MEDS: SODIUM CHLORIDE FLUSH 0.9% 10 ML SYRINGE IVP SCH ×2 (14:35→16:40)
--- NOTE | 2017-04-04 15:14 | Discharge Plan ---
Discharge Plan Disposition: Home, Self Care Condition: Fair Prescriptions: oxyCODONE/ACET 5/325 [Percocet 5 mg/325 mg] 1 tab PO Q4HR PRN #30 tablet PRN Reason: Pain metroNIDAZOLE [Flagyl] 500 mg PO Q6HR 14 Days #68 tablet Amox/Clav 875/125 [Augmentin 875/125] 1 tab PO BID 14 Days #28 tablet Docusate Sodium 250Mg Capsule [Colace 250Mg Capsule] 250 - 500 mg PO DAILY 30 Days #30 capsule Nicotine 21 mg Patch [Nicoderm] 1 patch TOP DAILY #30 patch Diet: Regular Activity Restrictions: Activity as Tolerated Shower Restrictions: No Driving Restrictions: No Instruction Topics: Colostomy Active Life, Ostomy Pouch Empty, Colostomy Pouch Change, Colostomy Dc Additional Instructions or Follow Up instructions: Change rectal packing at least twice daily. Pack with betadine soaked kerlix. apply dry dressing and tape to secure. Shower 2-3 times daily. Return to ER for fevers, chills, altered mental status, increasing rectal/gluteal pain or increasing redness around incision. Follow-Up Care: [facility] - Wound/Ostomy (Vac dressing ordered. Follow up in [facility] clinic Saturday.) No Smoking: If you smoke, Please STOP! Call for help. Follow-up with: JEREMY FARRIS MD [Provider Admit Priv/Credential] - 04/10/17 3:15 pm ( Bring your Vac dressing supplies to office)
[2017-04-04 18:28] VITALS: BP 124/63
--- NOTE | 2017-04-09 13:32 | DISCHARGE SUMMARY ---
DATE OF ADMISSION: 03/28/2017 DATE OF DISCHARGE: 04/04/2017 REASON FOR ADMISSION: Perirectal abscess. HISTORY OF PRESENT ILLNESS: This is a 36-year-old gentleman who presented to the emergency department with a 2-week history of perianal pain, urinary retention, and dysuria. Upon evaluation in the emergency department, he was noted to have significant cellulitis of the right gluteal fold. A CT scan of the pelvis was performed, which demonstrated extensive cellulitis in the region of the gluteal fold with thickening of the distal rectum. However, no abscess formation was noted. The patient was admitted to the medical service and placed on broad spectrum antibiotics. Surgical consultation was obtained. His cellulitis progressed to an abscess in the ensuing days, and he was subsequently taken to the operating room for incision and drainage of a right perirectal abscess. Copious amount of purulent fluid was evacuated and the area packed. His leukocytosis improved following this and the patient remained afebrile. However, on subsequent examinations, he continued to drain copious amounts of purulent fluid and had persistent cellulitis actually extending towards the scrotum. For this reason, he was taken back to the operating room for further exploration and further drainage. Prior to going back to the operating room, I did discuss with the patient and his mother that there would be a high likelihood that he would require a diverting ostomy if his perirectal abscess failed to heal. Upon evaluation in the operating room, he was placed in the lithotomy position and was noted to have an extensive amount of purulent fluid persistently draining from the opening. This incision was extended and further explored. It was noted to be extending towards the scrotum, but not involving the scrotal wall. A rigid sigmoidoscopy was also performed, which demonstrated a full-thickness grade 4 rectal injury encompassing approximately 1 /3 of the circumference of the rectal wall extending approximately 6 cm cephalad. Due to the severity of this injury, a diverting loop colostomy was performed. Postoperatively, the patient did well and his cellulitis rapidly improved. His ostomy began to function on postoperative day 2 and he was advanced from clears to a soft diet. His wound continued to drain some purulent fluid; however, this was markedly improved after the second operation. The patient was ambulating with pain well controlled on oral medications, tolerating regular diet with functioning of his ostomy with a normal white blood cell count and was afebrile on the day of discharge. He and his mother received instructions on how to care for his ostomy postoperatively and at home. His mother was also instructed on how to care for the wound at home, and I personally demonstrated to the mother how to change the dressing twice daily. He was also provided with prescriptions for Augmentin and Flagyl for 2 additional weeks, as well as a prescription for pain medication and for a stool softener. He was also provided with a nicotine patch, as the patient is a heavy smoker, and I strongly encouraged him to stop smoking to aid in the healing process. Extensive instructions were provided to the mother and to the patient regarding his followup care and when to seek medical attention. It was discussed with both that if he developed any worsening perirectal pain, abdominal pain, nausea, vomiting, fevers or chills, he should immediately seek medical attention. Additionally, he was instructed to shower twice daily and to clean the wound with soap and water twice daily. The packing should be removed additionally twice daily. He was instructed to follow up with the [facility] the following Saturday for a dressing change and for placement of a VAC device. He is to follow up with me the following Saturday for a wound check. JOB #: [id number] EXT JOB #:[id number] NKECHI
== END 2017-04-04 18:25 | disposition home or self-care (01) | DRG 854 ==
LOC: ED 16:56 → MS3 21:24
PROVIDERS: ADMIT Internal Medicine; ATTEND Nurse Practitioner
PROC: 02HV33Z Insertion of Infusion Device into Superior Vena Cava, Percutaneous Approach (ICD-10-PCS; 2017-03-30)
PROC: 0D9P0ZZ Drainage of Rectum, Open Approach (ICD-10-PCS; 2017-03-31)
PROC: 0D1N4Z4 Bypass Sigmoid Colon to Cutaneous, Percutaneous Endoscopic Approach (ICD-10-PCS; principal; 2017-04-02 15:30)
PROC: 0DJD8ZZ Inspection of Lower Intestinal Tract, Via Natural or Artificial Opening Endoscopic (ICD-10-PCS; 2017-04-02 15:30)
DX: A41.9 Sepsis, unspecified organism (principal); K61.1 Rectal abscess; E87.1 Hypo-osmolality and hyponatremia; R33.9 Retention of urine, unspecified; E86.0 Dehydration; E87.6 Hypokalemia; R30.0 Dysuria; F31.9 Bipolar disorder, unspecified; F90.9 Attention-deficit hyperactivity disorder, unspecified type; F42.9 Obsessive-compulsive disorder, unspecified; F17.210 Nicotine dependence, cigarettes, uncomplicated; Z91.14 Patient's other noncompliance with medication regimen
CPT/HCPCS: 36415; 51702; 51798; 71010; 74177; 80053; 81001; 81003; 82330; 83605; 83690; 83735; 84100; 84154; 85025; 85651; 86140; 87040; 87070; 87077; 87086; 87205; 87493; 96361; 96365; 96368; 96375; 96376; 99284; 99285

== ENCOUNTER 2017-09-02 07:30 | Inpatient (IN) | payer MEDICAID ==
[2017-09-02] MEDS ORDERED: BUPIVACAINE 0.5% PF 10 ML VIAL ONE ×3 (07:31→12:48)
[2017-09-02] MEDS ORDERED: metroNIDAZOLE 500 MG/100 ML 500 MG/100 ML BAG ONE (07:33)
[2017-09-02] MEDS ORDERED: ceFAZolin 2 GM/50 ML 2 GM/50 ML BAG IV ONE (07:33)
[2017-09-02] MEDS ORDERED: LACTATED RINGERS 1,000 ML IV ONE ×3 (07:58→12:36)
--- NOTE | 2017-09-02 09:10 | HISTORY & PHYSICAL EXAMINATION ---
HPI - History of Present Illness HPI Comment/Other: Mr. Lal Is here in follow-up status post grade 4 rectal injury with associated perirectal abscess requiring a diverting loop colostomy. This was performed in March of last year. He required packing changes for a prolonged amount of time but eventually his rectal wound healed in May. He is now following up for reversal of his ostomy. He denies any persistent drainage from his perirectal wound. Medications: None PMH/PSH: anxiety, depression, bipolar, perirectal abscess and diverting loop colostomy Physical Exam General: well developed, well nourished, in no acute distress Lungs: clear bilaterally to A & P Heart: regular rate and rhythm, S1, S2 without murmurs, rubs, gallops, or clicks Abdomen: Stoma is pink, surrounding skin is intact. Abdomen soft and nondistended. Rectal: Perirectal exam demonstrates well-healed perirectal incision. Anoscopy was difficult to perfrom secondary to patient discomfort but no mucosal abnormalities were apparent. Digital exam did not reveal stenosis. Pulses: pulses normal in all 4 extremities Extremities: no clubbing, cyanosis, edema, or deformity noted with normal full range of motion of all joints Cervical Nodes: no significant adenopathy Inguinal Nodes: no significant adenopathy Problem # 1: Status post grade 4 rectal injury resulting in diverting colostomy The patient would like to proceed with ostomy reversal. The procedure was explained to the patient in detail including his postoperative expectations to ambulate and to minimize narcotics in order to facility early discharge. The rest protocol was explained to the patient and he displayed understanding of his responsibilities in the postoperative phase. The patient will be giving an mechanical and antibiotic bowel prep and these instructions were provided in detail to the patient. Additionally he will administer fleets enema the evening before in the morning of the procedure. The procedure expulsive was explained to the patient in detail including potential risks involved including but not limited to bleeding, infection, anastomotic dehiscence and damage to intra-abdominal structures. A personalized risk assessment was provided for the patient. He understands all the above and would like to proceed with surgery. PMH/PSH - Past Medical History Cardiovascular: positive: None Respiratory: positive: None Neuro: positive: None Endocrine/Autoimmune: positive: None GI: positive: GI bleed, Other : positive: Retention HEENT: positive: Chronic sinusitis Psych: positive: Anxiety, Bipolar disorder, Panic attacks, ADD/ADHD, Post traumatic stress disorder, Obsessive compulsive disorder Musculoskeletal: positive: None Derm: positive: None MRSA Hx?: No - Past Surgical History General: positive: Bowel surgery Ortho: positive: Other Social & Family Hx - Social History Does the pt smoke?: Yes Smoking Status: Current every day smoker Does the pt drink ETOH?: No ETOH Use: Beer, Liquor Does the pt have substance abuse?: Yes Substance Use and Type: Marijuana - POLST Patient has POLST: No POLST Status: Full Code Meds/Allgy - Home Medications Home Medications: Ambulatory Orders Medication Instructions Recorded Confirmed Varenicline Tartrate [Chantix] 1 mg PO BID 08/29/17 09/02/17 - Allergies Allergies/Adverse Reactions: Allergies Allergy/AdvReac Type Severity Reaction Status Date / Time No Known Drug Allergies Allergy Verified 08/29/17 10:52 Exam - Vital Signs Vital Signs: Vital Signs x48h Temp Pulse Resp BP Pulse Ox 09/02/17 08:07 37 C 106 H 18 139/95 H 100
[2017-09-02] MEDS ORDERED: BUPIVACAINE 0.5% PF 30 ML VIAL SUBQ ONE (10:04)
[2017-09-02] MEDS ORDERED: LIDOCAINE-MPF 2% 5 ML VIAL IM ONE (10:04)
[2017-09-02] MEDS ORDERED: KETOROLAC 30 MG/ML VIAL IVP ONE (10:04)
[2017-09-02] MEDS ORDERED: NEOSTIGMINE 1 MG/1 ML 10 ML MDV IVP ONE (10:04)
[2017-09-02] MEDS ORDERED: fentaNYL 100 MCG/2 ML VIAL IVP ONE (10:04)
[2017-09-02] MEDS ORDERED: ONDANSETRON 4 MG/2 ML VIAL IVP ONE (10:04)
[2017-09-02] MEDS ORDERED: GLYCOPYRROLATE 1 MG/5 ML VIAL IVP ONE (10:04)
[2017-09-02] MEDS ORDERED: PHENYLEPHRINE 10 MG/ML VIAL IV ONE (10:04)
[2017-09-02] MEDS ORDERED: PROPOFOL 200 MG/20 ML VIAL IVP ONE (10:04)
[2017-09-02] MEDS ORDERED: MIDAZOLAM 2 MG/2 ML VIAL IVP ONE (10:04)
[2017-09-02] MEDS ORDERED: ACETAMINOPHEN 1,000 MG/100 ML 100 ML IV ONE (10:04)
[2017-09-02] MEDS ORDERED: DEXAMETHASONE 4 MG/ML VIAL IVP ONE (10:04)
[2017-09-02] MEDS ORDERED: ROCURONIUM 50 MG/5 ML VIAL IVP ONE (10:04)
[2017-09-02] MEDS ORDERED: BUPIVACAINE 0.25% PF 10 ML VIAL SUBQ ONE (10:16)
[2017-09-02] MEDS ORDERED: BUPIVACAINE 0.5% PF 30 ML VIAL INFIL ONE (10:16)
[2017-09-02] MEDS ORDERED: LIDOCAINE 1%-EPI 1:100000 20 ML MDV ONE (12:47)
[2017-09-02] MEDS ORDERED: MORPHINE 2 MG/ML CARPUJECT IVP PRN (12:52)
[2017-09-02] MEDS ORDERED: ACETAMINOPHEN 1,000 MG/100 ML 100 ML IV PRN (12:53)
--- NOTE | 2017-09-02 13:35 | OPERATIVE REPORT ---
Operative Report - General Admit Date: 09/02/17 Planned Procedure: take down of loop colostomy Pre-Op Diagnosis: loop colostomy Procedure Performed: Take down of loop colostomy, sigmoidectomy - Procedure Note Primary Surgeon: Viviane Secondary Surgeon: Glenn Anesthesia Technique: General ET tube - Other Other Information/Narrative: Indication: This is a 37-year-old male who underwent a diverting loop colostomy secondary to a grade 4 rectal injury over 3 months prior. He presents today for reversal of his loop colostomy. After obtaining informed consent the patient was brought into the operating room and positioned on the operating table in the lithotomy position taking noted pressure points. He was intubated by anesthesia. A Martin catheter was inserted. Perioperative antibiotics including Ancef and Flagyl were administered. A timeout was then taken according to protocol. A rigid proctosigmoidoscopy was performed at the start of the case to ensure no persistent rectal damage was present and none was noted.The patient's abdomen was then prepped and draped in the usual sterile fashion.Ioban was applied.An Incision was made around the patient's loop colostomy.This was deepened down circumferentially dissecting the colon out from the surrounding tissues. The colon was noted to be extremely adherent to the rectal muscles. It was difficult to define planes between the rectus muscles and the colon. I continued dissection down to the level of the fascia and was able to completely free of the colon at the level of the fascia and then worked my way back up towards the more superficial tissue. Eventually was able to completely circumferentially dissect out the colostomy, however, multiple defects in the colonic serosa were evident upon complete mobilization of the colon.The damage was noted to be extensive enough to warrant a partial sigmoidectomy. The distal aspect of the colon where there were no mucosal defect was selected as the site of distal transection. A defect was made in the underlying mesentery and this was stapled across using the linear JOSÉ stapling device with a blue load. Proximal portion of colon was also dissected out which was noted to be free from any serosal injuries and was selected for the proximal site of division. This bowel was divided in a similar manner. The total length of bowel resected was approximately 8 cm. The underlying colonic mesentery was divided using the LigaSure device. The colon was then inspected The distal stump was unable to be completely withdrawn from the small lateral incision . A wound protecting device was placed at this point to allow for better retraction of the soft tissues. Nonetheless I was still unable to completely mobilize the distal colon sufficiently to perform a [id number] anastomosis without extending his incision significantly. For this reason an EEA anastomosis was selected. Dr. Elizabeth came in to assist for this portion of the procedure. The 28 Pashto rectal dilator was inserted and was noted to easily reach the end of the stump. The proximal colonic stump was easily exteriorized with enough length to reach the distal stump without tension. It was then clamped with the pursestring device and the 3-0 Prolene inserted. The staple line was then transected with 15 blade. The anvil was then inserted into the proximal colon and tied into place. The EEA stapling device was then inserted through the patient's anus and connected to the anvil device. The stapling device was fired and removed. 2 complete donuts were noted. A leak test was then performed by putting saline and the patient's abdominal cavity and observing the staple line distended with air. No leaks were noted. The abdominal cavity fluid was suction evacuated. Hemostasis was noted to have been achieved. The fascia was then closed with a #1 PDS running suture. The subcutaneous tissue was closed with 3-0 Vicryl. 50 cc of local anesthetic was infiltrated. The skin was loosely reapproximated with 3-0 nylon and intermittently packed with half inch iodoform packing. A dry dressing was then applied. The patient was subsequently extubated and taken to the recovery room in stable condition. Estimated blood loss 75 cc Drains: Martin catheter Complications: None Specimens: Sigmoid colon
[2017-09-02] MEDS ORDERED: HYDROmorphone 1 MG/ML SYRINGE ONE (13:54)
[2017-09-02] MEDS: KETOROLAC 30 MG/ML VIAL IVP PRN ×2 (14:36→20:26)
[2017-09-02] MEDS: ONDANSETRON 4 MG/2 ML VIAL IVP PRN ×2 (14:37→20:26)
[2017-09-02] MEDS: LACTATED RINGERS 1,000 ML IV SCH (15:10)
[2017-09-02] MEDS: SODIUM CHLORIDE FLUSH 0.9% 10 ML SYRINGE IVP PRN (20:26)
[2017-09-02] MEDS: SODIUM CHLORIDE FLUSH 0.9% 10 ML SYRINGE IVP SCH (20:26)
[2017-09-03] MEDS: SODIUM CHLORIDE FLUSH 0.9% 10 ML SYRINGE IVP SCH ×3 (04:22→18:53)
[2017-09-03] MEDS: KETOROLAC 30 MG/ML VIAL IVP PRN (05:45)
[2017-09-03 06:00] LABS: BASOPHILS % (AUTO) 0.2 %; LYMPHOCYTES % (AUTO) 8.6 %; MEAN CORPUSCULAR HEMOGLOBIN 26.7 pg (27.0-31.0); MEAN CORPUSCULAR VOLUME 80.9 fL (80.0-94.0); MEAN PLATELET VOLUME 8.4 fL (7.4-11.4); MONOCYTES # (AUTO) 1.1 10^3/uL (0.0-1.0); MONOCYTES % (AUTO) 9.1 %; NEUTROPHILS % (AUTO) 82.1 %; PLT - PLATELET COUNT 140 10^3/uL (130-450); RED BLOOD COUNT 4.14 10^6/uL (4.70-6.10); WHITE BLOOD COUNT 12.2 x10^3/uL (4.8-10.8)
[2017-09-03 06:12] LABS: CALCIUM 8.2 mg/dL (8.5-10.3); CREATININE 0.8 mg/dL (0.6-1.2)
--- NOTE | 2017-09-03 08:39 | PROVIDER PROGRESS NOTE ---
Subjective - General Admit Date: 09/02/17 Procedure Date: 09/02/17 Post Op Days: 1 Procedure Performed: take down of colostomy, sigmoidectomy - Review of Systems General: positive: No symptoms Pulmonary: positive: No symptoms Cardiovascular: positive: No symptoms Gastrointestinal: positive: Nausea, Abdominal pain. negative: Vomiting, Flatus Psychiatric: positive: No symptoms Objective - Patient Data Reviewed Vital Signs: Yes Vital Signs: Vital Signs x48h Temp Pulse Resp BP Pulse Ox 09/03/17 00:41 36.8 C 91 18 99/62 96 Weight: Weight 09/01/17 09/02/17 09/03/17 23:59 23:59 23:59 Weight (kg) 95 kg Intake & Output: Intake and Output Totals x24h 09/01/17 09/02/17 09/03/17 23:59 23:59 23:59 Intake Total 1440 500 Output Total 600 600 Balance 840 -100 - Lab Results Lab Results: 09/03/17 05:29 09/03/17 05:29 Other Lab Results: Lab Results x24hrs 09/03/17 09/03/17 09/03/17 Range/Units 05:29 05:29 05:20 WBC 12.2 H (4.8-10.8) x10^3/uL RBC 4.14 L (4.70-6.10) 10^6/uL Hgb 11.0 L (14.0-18.0) g/dL Hct 33.5 L (42.0-52.0) % MCV 80.9 (80.0-94.0) fL MCH 26.7 L (27.0-31.0) pg MCHC 33.0 (32.0-36.0) g/dL RDW 14.0 (12.0-15.0) % Plt Count 140 (130-450) 10^3/uL MPV 8.4 (7.4-11.4) fL Neut # 10.0 H (1.5-6.6) 10^3/uL Lymph # 1.0 L (1.5-3.5) 10^3/uL Edwards # 1.1 H (0.0-1.0) 10^3/uL Eos # 0.0 (0.0-0.7) 10^3/uL Baso # 0.0 (0.0-0.1) 10^3/uL Absolute Nucleated RBC 0.00 x10^3/uL Nucleated RBC % 0.0 /100WBC Sodium 136 (135-145) mmol/L Potassium 4.1 (3.5-5.0) mmol/L Chloride 103 (101-111) mmol/L Carbon Dioxide 26 (21-32) mmol/L Anion Gap 7.0 (6-13) BUN 11 (6-20) mg/dL Creatinine 0.8 (0.6-1.2) mg/dL Estimated GFR (MDRD) 109 (>89) Glucose 124 H (70-100) mg/dL POC Whole Bld Glucose 122 H (70 - 100) mg/dL Calcium 8.2 L (8.5-10.3) mg/dL - Current Medications Current Medications: Current Medications Generic Name Dose Route Start Last Admin Trade Name Freq PRN Reason Stop Dose Admin Lactated Ringer's 1,000 mls @ 50 mls/hr 09/02/17 13:00 09/02/17 15:10 Lr IV 50 mls/hr .Q20H CATA Administration Ondansetron HCl 4 mg 09/02/17 12:53 09/02/17 20:26 Zofran Inj IVP 4 mg Q6H PRN Administration Nausea / Vomiting Sodium Chloride 10 ml 09/02/17 17:00 09/03/17 04:22 Normal Saline Flush 0.9% IVP Not Given 0100,0900,1700 CATA Sodium Chloride 10 ml 09/02/17 12:53 09/02/17 20:26 Normal Saline Flush 0.9% IVP 10 ml PRN PRN Administration NEEDED PER PROVIDER ORDERS - Physical Exam Wound/Incisions: positive: Dressing dry and intact General Appearance: positive: No acute distress Respiratory: positive: No respiratory distress Cardiovascular: positive: Regular rate & rhythm Abdomen: positive: Other (soft, slightly diestended. Non-tender to light palpation) Extremities: positive: No pedal edema Neurologic/Psychiatric: positive: Oriented x3 Impression/Plan - Problem List Problem List: Encourage ambulation. Clear liquids. Await to advance diet until + bowel function minimize narcotics DC lopez Will be stable for discharge once he is ambulating without assistance, pain is controlled or oral pain meds, he is having bowel function and on a soft diet.
[2017-09-03] MEDS: ENOXAPARIN 40 MG/0.4 ML SYRINGE SUBQ SCH (09:15)
[2017-09-03] MEDS: HYDROmorphone 1 MG/ML SYRINGE IVP PRN ×3 (14:14→22:13)
[2017-09-03] MEDS: SODIUM CHLORIDE FLUSH 0.9% 10 ML SYRINGE IVP PRN (14:14)
[2017-09-03] MEDS: LACTATED RINGERS 1,000 ML IV SCH (14:14)
[2017-09-04] MEDS: SODIUM CHLORIDE FLUSH 0.9% 10 ML SYRINGE IVP SCH ×4 (00:47→23:36)
[2017-09-04] MEDS: HYDROmorphone 1 MG/ML SYRINGE IVP PRN ×3 (04:24→11:52)
[2017-09-04 10:16] LABS: BASOPHILS % (AUTO) 0.3 %; EOSINOPHILS % (AUTO) 0.2 %; HGB - HEMOGLOBIN 8.8 g/dL (14.0-18.0); LYMPHOCYTES # (AUTO) 1.1 10^3/uL (1.5-3.5); LYMPHOCYTES % (AUTO) 19.9 %; MEAN CORPUSCULAR HEMOGLOBIN 27.4 pg (27.0-31.0); MEAN CORPUSCULAR HGB CONC 34.5 g/dL (32.0-36.0); MEAN CORPUSCULAR VOLUME 79.7 fL (80.0-94.0); MEAN PLATELET VOLUME 8.8 fL (7.4-11.4); MONOCYTES # (AUTO) 0.7 10^3/uL (0.0-1.0); MONOCYTES % (AUTO) 12.7 %; NEUTROPHILS # (AUTO) 3.8 10^3/uL (1.5-6.6); NEUTROPHILS % (AUTO) 66.9 %; PLT - PLATELET COUNT 138 10^3/uL (130-450); WHITE BLOOD COUNT 5.7 x10^3/uL (4.8-10.8)
[2017-09-04] MEDS: ENOXAPARIN 40 MG/0.4 ML SYRINGE SUBQ SCH (10:20)
[2017-09-04] MEDS: NS W/20 MEQ KCL 1,000 ML IV SCH ×2 (11:20→23:33)
[2017-09-04] MEDS: INSULIN ASPART 300 UNIT/3 ML PEN SUBQ SCH ×3 (11:54→21:01)
--- NOTE | 2017-09-04 16:33 | PROVIDER PROGRESS NOTE ---
Subjective - General Admit Date: 09/02/17 Procedure Date: 09/02/17 Post Op Days: 2 Procedure Performed: take down of colostomy, sigmoidectomy - Review of Systems Wound/Incisions: positive: Healing well General: positive: Other (patient feels dizzy) Pulmonary: positive: No symptoms Cardiovascular: positive: No symptoms Gastrointestinal: positive: Nausea, Abdominal pain, Flatus, Other (passing dark blood clots). negative: Vomiting Psychiatric: positive: Mood lability, Anxiety - Other Other Information/Narrative: Mr. Lal has refused to ambulate and will only sit up in his chair and go to and from the bathroom. He states that he is too dizzy to ambulate. He has passed more dark blood clots rectally but has no signs of active bleeding. He is passing flatus and feels less distended this evening. He vomited yesterday but has no nausea and is tolerating clears at this point. Objective - Patient Data Reviewed Vital Signs: Yes Vital Signs: Vital Signs x48h Temp Pulse Resp BP Pulse Ox 09/04/17 09:07 37.0 C 118 H 20 120/79 96 Weight: Weight 09/02/17 09/03/17 09/04/17 23:59 23:59 23:59 Weight (kg) 95 kg Intake & Output: Intake and Output Totals x24h 09/02/17 09/03/17 09/04/17 23:59 23:59 23:59 Intake Total 1440 3070 2100 Output Total 600 1450 1400 Balance 840 1620 700 - Lab Results Lab Results: 09/04/17 10:01 09/03/17 05:29 Other Lab Results: Lab Results x24hrs 09/04/17 09/04/17 09/03/17 Range/Units 10:01 07:48 23:47 WBC 5.7 (4.8-10.8) x10^3/uL RBC 3.20 L (4.70-6.10) 10^6/uL Hgb 8.8 L (14.0-18.0) g/dL Hct 25.5 L (42.0-52.0) % MCV 79.7 L (80.0-94.0) fL MCH 27.4 (27.0-31.0) pg MCHC 34.5 (32.0-36.0) g/dL RDW 14.0 (12.0-15.0) % Plt Count 138 (130-450) 10^3/uL MPV 8.8 (7.4-11.4) fL Neut # 3.8 (1.5-6.6) 10^3/uL Lymph # 1.1 L (1.5-3.5) 10^3/uL Collin # 0.7 (0.0-1.0) 10^3/uL Eos # 0.0 (0.0-0.7) 10^3/uL Baso # 0.0 (0.0-0.1) 10^3/uL Absolute Nucleated RBC 0.00 x10^3/uL Nucleated RBC % 0.0 /100WBC POC Whole Bld Glucose 150 H 133 H (70 - 100) mg/dL 09/03/17 Range/Units 17:49 WBC (4.8-10.8) x10^3/uL RBC (4.70-6.10) 10^6/uL Hgb (14.0-18.0) g/dL Hct (42.0-52.0) % MCV (80.0-94.0) fL MCH (27.0-31.0) pg MCHC (32.0-36.0) g/dL RDW (12.0-15.0) % Plt Count (130-450) 10^3/uL MPV (7.4-11.4) fL Neut # (1.5-6.6) 10^3/uL Lymph # (1.5-3.5) 10^3/uL Collin # (0.0-1.0) 10^3/uL Eos # (0.0-0.7) 10^3/uL Baso # (0.0-0.1) 10^3/uL Absolute Nucleated RBC x10^3/uL Nucleated RBC % /100WBC POC Whole Bld Glucose 138 H (70 - 100) mg/dL - Current Medications Current Medications: Current Medications Generic Name Dose Route Start Last Admin Trade Name Freq PRN Reason Stop Dose Admin Enoxaparin Sodium 40 mg 09/03/17 09:00 09/04/17 10:20 Lovenox SUBQ 40 mg DAILY CATA Administration Hydromorphone HCl 0.5 mg 09/02/17 14:44 09/04/17 11:52 Dilaudid Inj Syringe IVP 0.5 mg Q3HR PRN Administration Severe Pain Potassium Chloride/Sodium Chloride 1,000 mls @ 83.333 mls/hr 09/04/17 11:00 09/04/17 11:20 Normal Saline 0.9% W/20 Meq Kcl IV 83.333 mls/hr .Q12H CATA Administration Insulin Aspart 1 - 9 unit 09/04/17 12:00 09/04/17 11:54 Novolog SUBQ Not Given 0800,1200,1700,2100 [facility] Protocol Ondansetron HCl 4 mg 09/02/17 12:53 09/02/17 20:26 Zofran Inj IVP 4 mg Q6H PRN Administration Nausea / Vomiting Sodium Chloride 10 ml 09/02/17 17:00 09/04/17 10:17 Normal Saline Flush 0.9% IVP Not Given 0100,0900,1700 [facility] Sodium Chloride 10 ml 09/02/17 12:53 09/03/17 14:14 Normal Saline Flush 0.9% IVP 10 ml PRN PRN Administration NEEDED PER PROVIDER ORDERS - Physical Exam Wound/Incisions: positive: Other (dressing and packing changed. Wound looks clean and dry.) General Appearance: positive: No acute distress, Anxious Respiratory: positive: No respiratory distress Cardiovascular: positive: Tachycardia Abdomen: positive: Other (slightly distended. + bowel tones) Extremities: positive: No pedal edema Neurologic/Psychiatric: positive: Oriented x3 Impression/Plan - Problem List Problem List: Will advance to soft diet. Again have asked the patient to ambulate with assistance in the hallways. He has passed multiple dark blood clots but no bright red blood. Will continue to monitor. Will repeat CBC in AM. Transition to oral pain medications.
[2017-09-04] MEDS ORDERED: ACETAMINOPHEN 325 MG TABLET PO PRN (16:36)
[2017-09-04] MEDS: oxyCOD/ACETAMIN 5 MG/325 MG TABLET PO PRN (17:50)
[2017-09-05] MEDS: oxyCOD/ACETAMIN 5 MG/325 MG TABLET PO PRN ×2 (04:52→08:35)
[2017-09-05 06:15] LABS: BASOPHILS % (AUTO) 0.4 %; EOSINOPHILS # (AUTO) 0.1 10^3/uL (0.0-0.7); EOSINOPHILS % (AUTO) 1.7 %; HGB - HEMOGLOBIN 7.2 g/dL (14.0-18.0); LYMPHOCYTES # (AUTO) 1.4 10^3/uL (1.5-3.5); LYMPHOCYTES % (AUTO) 25.5 %; MEAN CORPUSCULAR HEMOGLOBIN 26.8 pg (27.0-31.0); MEAN CORPUSCULAR HGB CONC 33.3 g/dL (32.0-36.0); MEAN CORPUSCULAR VOLUME 80.5 fL (80.0-94.0); MEAN PLATELET VOLUME 8.8 fL (7.4-11.4); MONOCYTES # (AUTO) 0.7 10^3/uL (0.0-1.0); MONOCYTES % (AUTO) 12.2 %; NEUTROPHILS # (AUTO) 3.4 10^3/uL (1.5-6.6); NEUTROPHILS % (AUTO) 60.2 %; PLT - PLATELET COUNT 152 10^3/uL (130-450); RED BLOOD COUNT 2.67 10^6/uL (4.70-6.10); RED CELL DISTRIBUTION WIDTH 14.2 % (12.0-15.0); WHITE BLOOD COUNT 5.7 x10^3/uL (4.8-10.8)
[2017-09-05 07:57] VITALS: BP 113/65
--- NOTE | 2017-09-05 08:03 | Discharge Plan ---
Discharge Plan Disposition: 01 Home, Self Care Condition: Stable Diet: Soft Activity Restrictions: nothing strenuous Shower Restrictions: Yes (no tub bathing 2 weeks) Driving Restrictions: Yes (not while on narcotics) Instruction Topics: Diet Soft Dc, Colorectal Surg Recovery Additional Instructions or Follow Up instructions: Avoid strenuous activity o heavy lifting until cleared by your surgeon. Continue a soft diet. Change your dressing and packing daily. Place a small abount of packing in the wound to keep skin open and place a dry dressing on top daily. Do this after showering with soap and water. Shower daily but do not take bathes or get in a pool for 2 weeks. Call you surgeon immediately if the rectal bleeding becomes bright red, is persistent or large quantity or is associated with weakness and dizziness. If you develop a large amount of bleeding go directly to the emergency department. If you develop fever, chills, worsening abdominal pain, yellow drainage from you incision or redness around your incision call your surgeon. Follow up with Dr. Pan in the office On SaturdaySeptember 10 at 1:15 pm. No Smoking: If you smoke, Please STOP! Call for help. Follow-up with: JEREMY PAN MD [Provider Admit Priv/Credential] - 09/10/17 1:15 pm
--- NOTE | 2017-09-05 08:37 | DISCHARGE SUMMARY ---
Discharge Summary Admit Date: 09/02/17 Discharge Date: 09/05/17 Discharging Provider: Viviane Condition at Discharge: Stable Discharge Disposition: 01 Home, Self Care - DIAGNOSES Admission Diagnoses: loop colostomy - HPI History of Present Illness: This is a 37-year-old male who underwent a loop colostomy approximately 3 months ago for a grade 4 rectal injury. He returned for an elective reversal of his ostomy. - HOSPITAL COURSE Hospital Course: The patient did require a partial sigmoidectomy due to extensive adhesions of the bowel to the abdominal wall. He tolerated the procedure well and was transferred to the floor postoperatively. His Martin catheter was removed on postoperative day 1 and he voided spontaneously. He was immediately started on a clear liquid diet and slowly advanced to a soft diet which he tolerated. He did not want to ambulate in the immediate postoperative phase however he eventually did ambulate in the hallways with assistance the day prior to discharge. He initially was complaining of some dizziness with ambulation but states that this has resolved. He has been tachycardic since admission and this has been stable. His H&H has dropped since his admission, however he has remained hemodynamically stable with a normal blood pressure. He has been passing dark blood clots rectally, however, he has not had any signs of active bleeding. He is passing flatus and tolerating a soft diet. He has been given a prescription for percocet. He was instructed to call me if he has persistent rectal bleeding or signs of bright red blood per rectum, increasing dizziness, fever or chills. My personal cell phone number was given to the patient as I am not oncology physician this . He will follow up with my next Saturday. - ALLERGIES Allergies/Adverse Reactions: Allergies Allergy/AdvReac Type Severity Reaction Status Date / Time No Known Drug Allergies Allergy Verified 08/29/17 10:52 - MEDICATIONS Home Medications: Ambulatory Orders Medication Instructions Recorded Confirmed Varenicline Tartrate [Chantix] 1 mg PO BID 08/29/17 09/02/17 - PHYSICAL EXAM AT DISCHARGE General Appearance: positive: No acute distress, Anxious Respiratory: positive: No respiratory distress Cardiovascular: positive: Other (sinus tachycardia) Peripheral Pulses: positive: 2+ Abdomen: positive: Other (soft, non-distended, incision is healing well without signs of erythema. Draining serous fluid.) Extremities: positive: No pedal edema Neurologic/Psychiatric: positive: Oriented x3 - LABS Result Diagrams: 09/05/17 05:21 09/03/17 05:29 - FOLLOW UP Follow Up: Dr. Pan on SaturdaySeptember 10
== END 2017-09-05 08:52 | disposition home or self-care (01) | DRG 331 ==
LOC: MS2 07:48
PROVIDERS: ADMIT Surgery; ATTEND Surgery
PROC: 0DBN0ZZ Excision of Sigmoid Colon, Open Approach (ICD-10-PCS; principal; 2017-09-02 09:00)
DX: Z43.3 Encounter for attention to colostomy (principal); K66.0 Peritoneal adhesions (postprocedural) (postinfection); F17.200 Nicotine dependence, unspecified, uncomplicated; F31.9 Bipolar disorder, unspecified; F41.0 Panic disorder [episodic paroxysmal anxiety]; F90.9 Attention-deficit hyperactivity disorder, unspecified type; F43.10 Post-traumatic stress disorder, unspecified; Z79.899 Other long term (current) drug therapy; Z86.19 Personal history of other infectious and parasitic diseases; Z72.89 Other problems related to lifestyle
CPT/HCPCS: 36415; 80048; 85025; 88307

== ENCOUNTER 2019-06-20 23:02 | Emergency (ER) | payer MEDICAID ==
--- NOTE | 2019-06-20 23:24 | ED Physician Documentation ---
History of Present Illness - Stated complaint Stated Complaint: LT HAND SWOLLEN WOUND - Chief complaint Chief Complaint: Wound - Additonal information Additional information: This is a 38-year-old male presents with swelling on his left wrist. Patient states he had a ingrown hair over his wrist and he was picking at it any created a small open sore. Over last 24 hours there is been redness which is spread out around sore. He denies any fever, denies any pain with movement of his wrist or fingers. He denies any immunocompromise. 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 Review of Systems Constitutional: denies: Fever Skin: reports: Rash PD PAST MEDICAL HISTORY - Past Medical History Past Medical History: Yes Cardiovascular: None Respiratory: None Neuro: None Endocrine/Autoimmune: None GI: GI bleed, Other : Retention HEENT: Chronic sinusitis Psych: Anxiety, Bipolar disorder, Panic attacks, ADD/ADHD, Post traumatic stress disorder, Obsessive compulsive disorder Musculoskeletal: None Derm: None - Past Surgical History Past Surgical History: Yes General: Bowel surgery Ortho: Other - Present Medications Home Medications: Ambulatory Orders Medication Instructions Recorded Confirmed Cephalexin [Keflex] 500 mg PO Q6H #28 capsule 06/21/19 Sulfamethox/Trimeth 800/160 1 each PO BID #16 tablet 06/21/19 [Bactrim Ds 800/160] - Allergies Allergies/Adverse Reactions: Allergies Allergy/AdvReac Type Severity Reaction Status Date / Time No Known Drug Allergies Allergy Verified 06/20/19 23:11 - Social History Does the pt smoke?: Yes Smoking Status: Current every day smoker Does the pt drink ETOH?: No Does the pt have substance abuse?: Yes Substance Use and Type: Marijuana, Meth - Immunizations Immunizations are current?: Yes Immunizations: TDAP >10years/unknown - POLST Patient has POLST: No POLST Status: Full Code PD ED PE NORMAL - General General: Alert and oriented X 3 - HEENT HEENT: Atraumatic - Cardiac Cardiac: Other (Regular rate in 90s on my examination) - Respiratory Respiratory: No respiratory distress - Extremities Extremities: Other (There is a 6 cm diameter area of erythema over the radial aspect of the dorsal left wrist. The center there is a 0.5 cm shallow area of crusting with no purulence. There is no necrosis, no drainage from the wound, and there is no fluctuance. Patient has full active range of motion of his wrist and all fingers. There is no erythema or tenderness tracking along the flexor tendons or volar aspect of the hand or forearm. There is no erythema streaking up his forearm either.) Results - Vitals Vitals: Vital Signs - 24 hr 06/20/19 06/20/19 06/21/19 23:07 23:59 00:35 Temperature 36.7 C 36.9 C Heart Rate 121 H 117 H 112 H Respiratory 18 16 16 Rate Blood Pressure 136/82 H 115/85 H 138/78 H O2 Saturation 97 98 100 Oxygen O2 Source Room air - Rads (name of study) POC superficial US Radiology: Other (There is cobblestoning over the area of erythema with no fluid collection or foreign body. No signs of drainable abscess) PD MEDICAL DECISION MAKING - ED course ED course: On examination patient is nontoxic-appearing. He does have a area of cellulitis, on [id number] ultrasound there is some cobblestoning but no drainable fluid collection. The cellulitis began from a small area of crusting where patient was picking at his skin, which is likely related to his methamphetamine use. He is tachycardic in triage, which is not surprising given his methamphetamine use, on my examination his heart rate was in the 90s. He has no fever, and the area of cellulitis is localized without any streaking. He appears appropriate for a trial of outpatient antibiotics. He is given his first dose of Bactrim and Keflex here, and I reviewed strict return precautions including any significant progression of the cellulitis, fever, any tracking along the flexor tendons, or nonimprovement despite the antibiotic. I also discussed that he should have the cellulitis rechecked and that she is having significant improvement. This can be done with his primary care provider or here in the emergency department. I recommended abstaining from drug use, and patient was discharged home in care of his partner Departure - Departure Disposition: 01 Home, Self Care Clinical Impression: Cellulitis Qualifiers: Site of cellulitis: extremity Site of cellulitis of extremity: upper extremity Laterality: left Qualified Code(s): L03.114 - Cellulitis of left upper limb Condition: Good Instructions: Cellulitis Dc Follow-Up: Your,PCP [Other] Prescriptions: Cephalexin [Keflex] 500 mg PO Q6H #28 capsule Sulfamethox/Trimeth 800/160 [Bactrim Ds 800/160] 1 each PO BID #16 tablet Comments: You appear to have a infection of the skin around your left wrist. Please take the antibiotic as prescribed without missing doses. If you are not having significant improvements in the next 48 hours, please return to the emergency department for a recheck. If the redness is progressing up your arm, or if you develop fever or other concerning symptoms, return to the emergency department sooner. We do not see signs of an abscess today, but occasionally these will develop into an abscess/collection of pus that needs to be drained, so If you are developing more swelling this will need to be rechecked. Keep the area clean and put a simple bandage over top of it along with thin layer of bacitracin or antibiotic ointment over the scab. Discharge Date/Time: 06/21/19 00:35
[2019-06-20] MEDS ORDERED: IBUPROFEN 600 MG TABLET PO STA (23:34)
[2019-06-20] MEDS ORDERED: SULFAMETH/TRIMETH DS 800/160 MG TABLET PO STA (23:34)
[2019-06-20] MEDS ORDERED: cephALEXin 250 MG CAPSULE PO STA (23:34)
[2019-06-21 00:38] VITALS: BP 138/78
== END 2019-06-21 00:35 | disposition home or self-care (01) ==
LOC: ED 23:02
DX: L03.114 Cellulitis of left upper limb (principal); F15.90 Other stimulant use, unspecified, uncomplicated; F17.200 Nicotine dependence, unspecified, uncomplicated
CPT/HCPCS: 99283; 99284; A9270

== ENCOUNTER 2020-04-21 19:16 | Emergency (ER) | payer MEDICAID ==
[2020-04-21 19:26] VITALS: BP 134/89
--- NOTE | 2020-04-21 19:29 | ED Physician Documentation ---
History of Present Illness - Stated complaint Stated Complaint: LT HAND WOUND - Chief complaint Chief Complaint: Wound - History obtained from History obtained from: Patient, Family - History of Present Illness Pain level max: 0 Pain level now: 0 - Additonal information Additional information: Approximately 3 weeks ago, the patient injured his left hand when he punched a window. He was subsequently seen by an orthopedist in [place] while he was attending a rehab program there. He feels that his hand has been healing well but he developed a "sore" on his left middle finger where the splint has been rubbing.He says that he no longer has pain at the site of his fracture. He points over the fifth metacarpal when asked where the pain was located. He is otherwise feeling better and says that his tetanus is up-to-date. Review of Systems Ten Systems: 10 systems reviewed and negative Constitutional: reports: Reviewed and negative Eyes: reports: Reviewed and negative Ears: reports: Reviewed and negative Nose: reports: Reviewed and negative Throat: reports: Reviewed and negative Cardiac: reports: Reviewed and negative Respiratory: reports: Reviewed and negative GI: reports: Reviewed and negative : reports: Reviewed and negative Skin: reports: Abrasion (s), Reviewed and negative Musculoskeletal: reports: Reviewed and negative Neurologic: reports: Reviewed and negative Psychiatric: reports: Reviewed and negative Endocrine: reports: Reviewed and negative Immunocompromised: reports: Reviewed and negative PD PAST MEDICAL HISTORY - Past Medical History Cardiovascular: None Respiratory: None Neuro: None Endocrine/Autoimmune: None GI: GI bleed, Other : Retention HEENT: Chronic sinusitis Psych: Anxiety, Bipolar disorder, Panic attacks, ADD/ADHD, Post traumatic stress disorder, Obsessive compulsive disorder Musculoskeletal: None Derm: None - Past Surgical History Past Surgical History: Yes General: Bowel surgery Ortho: Other - Present Medications Home Medications: Ambulatory Orders Medication Instructions Recorded Confirmed No Known Home Medications 04/21/20 04/21/20 - Allergies Allergies/Adverse Reactions: Allergies Allergy/AdvReac Type Severity Reaction Status Date / Time No Known Drug Allergies Allergy Verified 04/21/20 19:26 - Social History Does the pt smoke?: Yes Smoking Status: Current every day smoker Does the pt drink ETOH?: No Does the pt have substance abuse?: Yes Substance Use and Type: Other (He just completed rehab program.) - Immunizations Immunizations are current?: Yes Immunizations: TDAP >10years/unknown - POLST Patient has POLST: No POLST Status: Full Code PD ED PE NORMAL - Vitals Vital signs reviewed: Yes - General General: Alert and oriented X 3, No acute distress - HEENT HEENT: PERRL - Neck Neck: Supple, no meningeal sign - Cardiac Cardiac: RRR, No murmur - Respiratory Respiratory: Clear bilaterally - Abdomen Abdomen: Normal bowel sounds, Soft, Non tender, Non distended - Derm Derm: Warm and dry - Extremities Extremities: Other (Initially, the patient had a left wrist cast in place with a bridge between the third and fourth fingers. There was an approximately 5 mm ulcerative lesion on the medial aspect of his third finger at the base where his cast had been rubbing. After cast removal, he exhibited no tenderness on his [place]) - Neuro Neuro: Alert and oriented X 3 - Psych Psych: Normal mood, Normal affect Results - Vitals Vitals: Vital Signs - 24 hr 04/21/20 19:22 Temperature 36.8 C Heart Rate 100 Respiratory 16 Rate Blood Pressure 134/89 H O2 Saturation 98 Oxygen O2 Source Room air - Rads (name of study) Left hand Radiology: Final report received (Comminuted, minimally displaced fracture at the base of the fifth metacarpal with mild healing changes. This is per my in the radiologist's evaluation.) PD MEDICAL DECISION MAKING - ED course Complexity details: other ED course: Clinically, it appears that the patient's metacarpal fracture is still healing. However, he developed the ulcerative wound as noted. His cast was removed here. He was placed in a ulnar gutter splint to give better exposure to the wound. Staff cleaned and dressed the wound. Appropriate wound care was reviewed with him. He is to have close follow-up with the orthopedic clinic. Additionally, he was instructed to call or return if any symptoms or signs of infection were to develop. Departure - Departure Disposition: 01 Home, Self Care Clinical Impression: Metacarpal bone fracture Qualifiers: Encounter type: sequela Metacarpal bone: fifth Fracture type: closed Metacarpal location: base Fracture alignment: nondisplaced Laterality: left Qualified Code(s): S62.347S - Nondisplaced fracture of base of fifth metacarpal bone, left hand, sequela Ulcer of skin Qualifiers: Non-pressure ulcer stage: limited to breakdown of skin Qualified Code(s): L98.491 - Non-pressure chronic ulcer of skin of other sites limited to breakdown of skin Condition: Stable Record reviewed to determine appropriate education?: Yes Instructions: ED Fx Hand Closed Ch, ED Cast Care Fiberglass, Wound Care Follow-Up: Julian Cevallos MD [Provider Admit Priv/Credential] - Within 1 week Comments: Ensure that you contact the orthopedist for follow-up on your hand fracture. Additionally, care for your wound as discussed. Return immediately if any symptoms or signs of infection develop.
--- NOTE | 2020-04-21 20:16 | XRAY Report ---
PROCEDURE: Hand 3 View LT INDICATIONS: sub acute fracture TECHNIQUE: 3 views of the hand(s) acquired. COMPARISON: None. FINDINGS: Bones: There is a comminuted, minimally displaced fracture at the base of the fifth metacarpal. Small amount of surrounding calcification may represent mild callus formation and healing changes. Soft tissues: No suspicious soft tissue calcifications. IMPRESSION: Comminuted minimally displaced fracture at the base of the fifth metacarpal with mild healing changes . Reviewed by: Robi Elmore MD on 04/21/2020 8:14 PM PDT Approved by: Robi Elmore MD on 04/21/2020 8:14 PM PDT Station ID: [id number]
== END 2020-04-21 20:57 | disposition home or self-care (01) ==
LOC: ED 19:16
DX: L98.491 Non-pressure chronic ulcer of skin of other sites limited to breakdown of skin (principal); S62.317D Displaced fracture of base of fifth metacarpal bone, left hand, subsequent encounter for fracture with routine healing; W22.8XXD Striking against or struck by other objects, subsequent encounter; F17.200 Nicotine dependence, unspecified, uncomplicated
CPT/HCPCS: 99283

== ENCOUNTER 2020-04-28 07:32 | Outpatient (CLI) | payer MEDICAID ==
--- NOTE | 2020-04-28 13:44 | XRAY Report ---
PROCEDURE: Hand 3 View LT INDICATIONS: LEFT 5TH METACARPAL FRACTURE TECHNIQUE: 3 views of the hand(s) acquired. COMPARISON: 04/21/2020 FINDINGS: Bones: Redemonstration of comminuted proximal right fifth metacarpal fracture with stable to mildly i ncreased bridging callus formation. Fracture line remains conspicuous. Alignment is unchanged. Remain emelia of the visualized osseous structures appear intact. No suspicious bony lesions. Soft tissues: No suspicious soft tissue calcifications. IMPRESSION: Minimally displaced, comminuted base of fifth metacarpal fracture with stable to minimal interval pro gression of progress towards fracture healing. Reviewed by: Jonathan Saravia MD on 04/28/2020 1:42 PM PDT Approved by: Jonathan Saravia MD on 04/28/2020 1:42 PM PDT Station ID: [id number]
== END 2020-04-28 23:59 | disposition home or self-care (01) ==
LOC: DI.WCP 07:32
PROVIDERS: ATTEND Orthopaedic Surgery
DX: S62.317A Displaced fracture of base of fifth metacarpal bone, left hand, initial encounter for closed fracture (principal)

== ENCOUNTER 2020-09-07 13:05 | Emergency (ER) | payer MEDICAID ==
--- NOTE | 2020-09-07 13:47 | ED Physician Documentation ---
PD HPI URI - Stated complaint Stated Complaint: C+ SYMPTOMS - Chief complaint Chief Complaint: General - History obtained from History obtained from: Patient - History of Present Illness Timing - onset: How many days ago (2-3) Timing duration: Days (2-3) Timing details: Gradual onset, Still present Associated symptoms: Chills, Sinus pain (frontal area, with green nasal discharge) Contributing factors: Sick contact (he went to [place] and visited some friends who were somewhat sick while he was there and they told him that the tested positive for COVID. Pt concerned about having this.) Similar symptoms before: Has not had sx before Recently seen: Not recently seen Review of Systems Constitutional: reports: Chills, Myalgias. denies: Fever Nose: reports: Congestion, Sinus pressure / pain Throat: denies: Dental pain / toothache, Sore throat Cardiac: denies: Chest pain / pressure Respiratory: reports: Cough (mild). denies: Dyspnea GI: denies: Nausea, Vomiting, Diarrhea Skin: denies: Rash Musculoskeletal: denies: Neck pain, Back pain Neurologic: reports: Headache (mild) PD PAST MEDICAL HISTORY - Past Medical History Cardiovascular: None Respiratory: None Neuro: None Endocrine/Autoimmune: None GI: GI bleed, Other : Retention HEENT: Chronic sinusitis Psych: Anxiety, Bipolar disorder, Panic attacks, ADD/ADHD, Post traumatic stress disorder, Obsessive compulsive disorder Musculoskeletal: None Derm: None - Past Surgical History Past Surgical History: Yes General: Bowel surgery Ortho: Other - Present Medications Home Medications: Ambulatory Orders Medication Instructions Recorded Confirmed Amoxicillin 500 mg PO TID #21 cap 09/07/20 HYDROcod/ACETAM 5/325 [[place] 5/325] 1 ea PO Q6H PRN #10 tablet 09/07/20 dexAMETHasone [Decadron] 4 mg PO DAILY #5 tablet 09/07/20 - Allergies Allergies/Adverse Reactions: Allergies Allergy/AdvReac Type Severity Reaction Status Date / Time No Known Drug Allergies Allergy Verified 09/07/20 13:25 - Social History Does the pt smoke?: Yes Smoking Status: Current every day smoker Does the pt drink ETOH?: No Does the pt have substance abuse?: Yes - Immunizations Immunizations are current?: Yes Immunizations: TDAP >10years/unknown - POLST Patient has POLST: No POLST Status: Full Code PD ED PE NORMAL - Vitals Vital signs reviewed: Yes - General General: Alert and oriented X 3, No acute distress, Well developed/nourished - HEENT HEENT: Ears normal, Moist mucous membranes, Pharynx benign, Other (frontal sinus tender to percussion. ) - Neck Neck: Supple, no meningeal sign, No adenopathy - Cardiac Cardiac: RRR, No murmur - Respiratory Respiratory: Clear bilaterally - Abdomen Abdomen: Soft, Non tender - Derm Derm: Normal color, Warm and dry - Neuro Neuro: Alert and oriented X 3, No motor deficit, Normal speech Results - Vitals Vitals: Vital Signs - 24 hr 09/07/20 09/07/20 13:21 14:32 Temperature 36.6 C 36.8 C Heart Rate 98 87 Respiratory 14 14 Rate Blood Pressure 111/69 128/74 O2 Saturation 100 100 Oxygen O2 Source Room air PD MEDICAL DECISION MAKING - ED course Complexity details: considered differential (URI symptoms and particularly sinusitis type symptoms. Had exposure to COVID so is concerned about that. He does not fit criteria for Bamlanixamab), d/w patient Departure - Departure Disposition: 01 Home, Self Care Clinical Impression: URI (upper respiratory infection) Qualifiers: URI type: unspecified URI Qualified Code(s): J06.9 - Acute upper respiratory infection, unspecified Acute sinusitis Qualifiers: Sinusitis location: frontal Recurrence: non-recurrent Qualified Code(s): J01.10 - Acute frontal sinusitis, unspecified Condition: Stable Record reviewed to determine appropriate education?: Yes Instructions: ED Sinusitis Abx Tx Prescriptions: Amoxicillin 500 mg PO TID #21 cap dexAMETHasone [Decadron] 4 mg PO DAILY #5 tablet HYDROcod/ACETAM 5/325 [[place] 5/325] 1 ea PO Q6H PRN #10 tablet PRN Reason: Pain Comments: Your Covid test should result in the next day or 2. We typically call for positive results though your best looking for your results on the patient portal. Check at the vest front presser on the way out about information regarding that. You have a Covid test pending. You need to self quarantine until the result is done and negative. Do not leave your house. Do not get near anybody. The results should be done in 48 to 72 hours, but sometimes longer. We will call with a positive result, the fastest way to get a negative result for confirmation though is to go to the hospital website at [email or web address], click on the my [facility] tab and sign up for the patient portal. If any friends or family get sick and would like to have a Covid test done, but do not have signs or symptoms that would necessitate being hospitalized, we encourage testing through our coronavirus swabbing station, call [phone] to schedule an appointment. It does sound likely that you have just a regular sinus infection and so stay well-hydrated and use the amoxicillin antibiotic, Decadron anti-inflammatory and add Tylenol or pain medicine if needed. Discharge Date/Time: 09/07/20 14:34
[2020-09-07] MEDS ORDERED: CHERRY SYRUP 10 ML UDC PO ONE (14:19)
[2020-09-07] MEDS ORDERED: AMOXICILLIN 250 MG CAPSULE PO STA (14:19)
[2020-09-07] MEDS ORDERED: DEXAMETHASONE 10 MG/ML VIAL PO STA (14:19)
[2020-09-07] MEDS ORDERED: ACETAMINOPHEN 325 MG TABLET PO STA (14:21)
[2020-09-07 14:34] VITALS: BP 128/74
== END 2020-09-07 14:34 | disposition home or self-care (01) ==
LOC: ED 13:05
DX: J01.10 Acute frontal sinusitis, unspecified (principal); J06.9 Acute upper respiratory infection, unspecified; F17.200 Nicotine dependence, unspecified, uncomplicated
CPT/HCPCS: 99283; A9270

== ENCOUNTER 2021-07-20 08:37 | Emergency (ER) | payer MEDICAID ==
[2021-07-20 08:51] VITALS: BP 140/100
--- NOTE | 2021-07-20 09:12 | ED Physician Documentation ---
History of Present Illness - Stated complaint Stated Complaint: CHEST PX,PRESSURE - Chief complaint Chief Complaint: Resp - History obtained from History obtained from: Patient - Additonal information Additional information: Patient comes emergency department with chief complaint of chest congestion and noisy breathing at night. Patient states that he also had a cough. The patient symptoms started approximately 1 month ago after his had an upper respiratory infection. The patient states he has been seen by his primary care physician a couple times since, because he is continued to feel congested and cough. The patient is not bringing up any phlegm. He does not know of any other sick contacts specifically, though he does have 2 school-aged children who he says are "always bringing home something". Patient is also a smoker. He has had the [employer] COVID-vaccine, but has not had a booster yet. No fevers or chills. The patient does not feel short of breath. He states he is here because his said he was "purring like a cat" last night and told him to come in. The patient is not an asthmatic. No other complaints at this time. Review of Systems Ten Systems: 10 systems reviewed and negative Constitutional: reports: Reviewed and negative Eyes: reports: Reviewed and negative Ears: reports: Reviewed and negative Nose: reports: Rhinorrhea / runny nose, Congestion Throat: reports: Reviewed and negative Cardiac: reports: Reviewed and negative Respiratory: reports: Cough GI: reports: Reviewed and negative : reports: Reviewed and negative Skin: reports: Reviewed and negative Musculoskeletal: reports: Reviewed and negative Neurologic: reports: Reviewed and negative Psychiatric: reports: Reviewed and negative Endocrine: reports: Reviewed and negative Immunocompromised: reports: Reviewed and negative PD PAST MEDICAL HISTORY - Past Medical History Cardiovascular: None Respiratory: None Neuro: None Endocrine/Autoimmune: None GI: GI bleed, Other : Retention HEENT: Chronic sinusitis Psych: Anxiety, Bipolar disorder, Panic attacks, ADD/ADHD, Post traumatic stress disorder, Obsessive compulsive disorder Musculoskeletal: None Derm: None - Past Surgical History Past Surgical History: Yes General: Bowel surgery Ortho: Other - Present Medications Home Medications: Ambulatory Orders Medication Instructions Recorded Confirmed Amoxicillin 500 mg PO TID #21 cap 09/07/20 HYDROcod/ACETAM 5/325 [[place] 5/325] 1 ea PO Q6H PRN #10 tablet 09/07/20 dexAMETHasone [Decadron] 4 mg PO DAILY #5 tablet 09/07/20 Benzonatate [Tessalon] 200 mg PO TID #15 cap 07/20/21 - Allergies Allergies/Adverse Reactions: Allergies Allergy/AdvReac Type Severity Reaction Status Date / Time No Known Drug Allergies Allergy Verified 07/20/21 08:51 - Social History Does the pt smoke?: Yes Smoking Status: Current every day smoker Does the pt drink ETOH?: No Does the pt have substance abuse?: Yes - Immunizations Immunizations are current?: Yes Immunizations: TDAP >10years/unknown - POLST Patient has POLST: No POLST Status: Full Code PD ED PE NORMAL - Vitals Vital signs reviewed: Yes - General General: Alert and oriented X 3, No acute distress, Well developed/nourished, Other (Well-appearing patient) - HEENT HEENT: Atraumatic, PERRL, EOMI, Moist mucous membranes - Neck Neck: Supple, no meningeal sign - Cardiac Cardiac: RRR, No murmur, Strong equal pulses - Respiratory Respiratory: No respiratory distress, Clear bilaterally - Abdomen Abdomen: Soft, Non tender, Non distended - Derm Derm: Normal color, Warm and dry, No rash - Extremities Extremities: No deformity, No edema, No calf tenderness / cord - Neuro Neuro: Alert and oriented X 3, tax assistant 2-12 intact, Normal speech - Psych Psych: Normal mood, Normal affect Results - Vitals Vitals: Vital Signs - 24 hr 07/20/21 08:46 Temperature 37.0 C Heart Rate 89 Respiratory 14 Rate Blood Pressure 140/100 H O2 Saturation 96 Oxygen O2 Source Room air - EKG (time done) 08 44 Rate: Rate (enter#) (91) Rhythm: NSR [place]: Normal Intervals: Normal NH QRS: Normal Ischemia: ST elevation c/w repol Compare to prior EKG: Old EKG unavailable Computer interpretation: Agree with computer - Rads (name of study) chest XR Radiology: Final report received, EMP read indepedently, See rad report (neg) PD MEDICAL DECISION MAKING - ED course Complexity details: reviewed results, re-evaluated patient, considered differential, d/w patient ED course: EKG was done in triage by nursing staff, and unremarkable. Chest x-ray was also unremarkable. COVID test was performed, because patient stated his was worried about it and would want him to get it done. This is pending at this time. We have discussed home management of the symptoms, as well as the usual indications for return. Departure - Departure Disposition: 01 Home, Self Care Clinical Impression: Upper respiratory infection Qualifiers: URI type: unspecified viral URI Qualified Code(s): J06.9 - Acute upper respiratory infection, unspecified Condition: Stable Instructions: ED Viral Syndrome Prescriptions: Benzonatate [Tessalon] 200 mg PO TID #15 cap Comments: Your symptoms are consistent with one of the many viral upper respiratory Fecht patients that go around this time a year. It is possible that you could have a mild case of COVID, though there are many other viral illnesses with very similar symptoms that are also common. Your lungs are actually very clear. There is no wheezing and the air is going easily all the way to the bottoms of your lung butt. You most likely have some mucus congestion in your upper airways. This could be left over from the first cold that you had, Especially considering that you are a smoker, and this will often cause a cough and congestion to hang on for much longer than it would in non-smokers. However, it is also possible that you were exposed to another upper respiratory virus, either through your children or through the general public, and that this is because similar symptoms, making it seem like 1 prolonged illness. This is very common this time a year is so many respiratory viruses go around. At this point in time, we will give you prescription cough medicine, but there is really no specific treatment. Viruses are self-limited and do not respond to antibiotics, and will go away on their own. It is very much advisable for you to get help with your smoking, as this is damaging to your health in many ways, but will also cause a more complicated course when you do have a respiratory infection. Please follow-up with your primary care physician as needed. As far as your COVID test, we will call you back if it is positive; however, we do not call back of the negative test. The best way to monitor your results to confirm negative test is to go to the hospital website at [email or web address], click on the "my [facility]" tab, and sign up for the patient portal.
--- NOTE | 2021-07-20 09:31 | XRAY Report ---
PROCEDURE: Chest 1 View X-Ray INDICATIONS: chest pain PRIORS: 03/30/17 TECHNIQUE: One view of the chest was acquired. COMPARISON: 03/30/2017 FINDINGS: Surgical changes and devices: None. Lungs and pleura: No pleural effusions or pneumothorax. Mild patchy bilateral perihilar opacity.. Mediastinum: Mediastinal contours appear normal. Heart size is normal. Bones and chest wall: No suspicious bony lesions. Overlying soft tissues appear unremarkable. IMPRESSION: Mild atypical pneumonia. Reviewed by: Fatuma Mendenhall MD on 07/20/2021 9:30 AM [facility] Approved by: Fatuma Mendenhall MD on 07/20/2021 9:30 AM [facility] Station ID: [id number]
== END 2021-07-20 09:32 | disposition home or self-care (01) ==
LOC: ED 08:37
DX: J06.9 Acute upper respiratory infection, unspecified (principal); Z20.822 Contact with and (suspected) exposure to COVID-19; F17.200 Nicotine dependence, unspecified, uncomplicated
CPT/HCPCS: 93005; 99283; 99284

== ENCOUNTER 2021-08-23 10:22 | Outpatient (CLI) | payer MEDICAID ==
[2021-08-23 13:02] LABS: ALBUMIN 4.7 g/dL (3.2-5.5); ALBUMIN/GLOBULIN RATIO 1.6 (1.0-2.2); ALKALINE PHOSPHATASE 50 IU/L (42-121); ALT ALANINE AMINOTRANSFERASE 25 IU/L (10-60); AST ASPARTATE AMINOTRANSFERASE 23 IU/L (10-42); BILIRUBIN,TOTAL 0.6 mg/dL (0.2-1.0); BUN - BLOOD UREA NITROGEN 15 mg/dL (6-20); CALCIUM 9.5 mg/dL (8.5-10.3); CARBON DIOXIDE - CO2 29 mmol/L (21-32); CHLORIDE 96 mmol/L (101-111); CHOL/HDL RATIO 4.5 (<5.0); CHOLESTEROL 192 mg/dL; CREATININE 0.8 mg/dL (0.6-1.2); GFR - MDRD 108 (>89); GLUCOSE 95 mg/dL (70-100); HDL CHOLESTEROL 43 mg/dL; LDL CHOLESTEROL,CALCULATED 132 mg/dL; LDL/HDL RATIO 3.1 (<3.6); POTASSIUM 4.2 mmol/L (3.5-5.0); SODIUM 135 mmol/L (135-145); TOTAL PROTEIN 7.7 g/dL (6.7-8.2); TRIGLYCERIDES 87 mg/dL; VLDL CHOLESTEROL 17 mg/dL
[2021-08-23 13:07] LABS: ESTIMATED AVERAGE GLUCOSE 117 mg/dL (70-100); HEMOGLOBIN A1c% 5.7 % (4.27-6.07)
== END 2021-08-23 10:23 | disposition home or self-care (01) ==
LOC: LAB.N 10:22
PROVIDERS: ATTEND Psychiatry & Neurology Psychiatry
DX: Z79.899 Other long term (current) drug therapy (principal)
CPT/HCPCS: 36415; 80053; 80061; 83036; 83721

== ENCOUNTER 2021-09-01 09:21 | Outpatient (CLI) | payer MEDICAID ==
[2021-09-01 09:30] LABS: MUDS CUTOFF CONCENTRATIONS CUTOFF CONC BELOW:
[2021-09-01 09:48] LABS: AMPHETAMINE SCREEN,URINE NEGATIVE (NEGATIVE); BARBITURATE SCREEN,UR NEGATIVE (NEGATIVE); BENZODIAZEPINES SCREEN, URINE NEGATIVE (NEGATIVE); COCAINE SCREEN URINE NEGATIVE (NEGATIVE); METHADONE SCREEN, URINE NEGATIVE (NEGATIVE); METHAMPHETAMINES SCREEN, URINE NEGATIVE (NEGATIVE); OPIATE SCREEN, URINE NEGATIVE (NEGATIVE); OXYCODONE SCREEN, URINE NEGATIVE (NEGATIVE); PROPOXYPHENE SCREEN, URINE NEGATIVE (NEGATIVE); THC CANNABINOID SCREEN, URINE POSITIVE (NEGATIVE); TRICYCLIC ANTIDEPRESSANT,URINE NEGATIVE (NEGATIVE)
== END 2021-09-01 09:22 | disposition home or self-care (01) ==
LOC: LAB 09:21
PROVIDERS: ATTEND Psychiatry & Neurology Psychiatry
DX: F15.11 Other stimulant abuse, in remission (principal)
CPT/HCPCS: 80306

== ENCOUNTER 2022-03-12 08:07 | Outpatient (CLI) | payer MEDICAID ==
[2022-03-12 12:53] LABS: BASOPHILS % (AUTO) 0.7 %; EOSINOPHILS # (AUTO) 0.1 10^3/uL (0.0-0.7); EOSINOPHILS % (AUTO) 2.6 %; HCT - HEMATOCRIT 45.2 % (42.0-52.0); HGB - HEMOGLOBIN 15.1 g/dL (14.0-18.0); LYMPHOCYTES # (AUTO) 1.6 10^3/uL (1.5-3.5); LYMPHOCYTES % (AUTO) 30.3 %; MEAN CORPUSCULAR HEMOGLOBIN 28.2 pg (27.0-31.0); MEAN CORPUSCULAR HGB CONC 33.4 g/dL (32.0-36.0); MEAN CORPUSCULAR VOLUME 84.5 fL (80.0-94.0); MEAN PLATELET VOLUME 11.1 fL (7.4-11.4); MONOCYTES # (AUTO) 0.6 10^3/uL (0.0-1.0); MONOCYTES % (AUTO) 10.7 %; NEUTROPHILS % (AUTO) 55.1 %; PLT - PLATELET COUNT 152 10^3/uL (130-450); RED BLOOD COUNT 5.35 10^6/uL (4.70-6.10); WHITE BLOOD COUNT 5.4 x10^3/uL (4.8-10.8)
[2022-03-12 13:15] LABS: ALBUMIN 4.7 g/dL (3.2-5.5); ALBUMIN/GLOBULIN RATIO 1.7 (1.0-2.2); ALKALINE PHOSPHATASE 53 IU/L (42-121); ALT ALANINE AMINOTRANSFERASE 33 IU/L (10-60); AST ASPARTATE AMINOTRANSFERASE 28 IU/L (10-42); BILIRUBIN,TOTAL 0.7 mg/dL (0.2-1.0); BUN - BLOOD UREA NITROGEN 20 mg/dL (6-20); CALCIUM 9.5 mg/dL (8.5-10.3); CARBON DIOXIDE - CO2 26 mmol/L (21-32); CHLORIDE 104 mmol/L (101-111); CHOL/HDL RATIO 4.7 (<5.0); CHOLESTEROL 188 mg/dL; CREATININE 0.8 mg/dL (0.6-1.2); GFR - MDRD 107 (>89); GLUCOSE 107 mg/dL (70-100); HDL CHOLESTEROL 40 mg/dL; LDL CHOLESTEROL,CALCULATED 120 mg/dL; POTASSIUM 4.1 mmol/L (3.5-5.0); SODIUM 137 mmol/L (135-145); TOTAL PROTEIN 7.5 g/dL (6.7-8.2); TRIGLYCERIDES 138 mg/dL; VLDL CHOLESTEROL 28 mg/dL
[2022-03-12 13:18] LABS: THYROID STIMULATING HORMONE 0.93 uIU/mL (0.34-5.60)
[2022-03-12 13:19] LABS: ESTIMATED AVERAGE GLUCOSE 120 mg/dL (70-100); HEMOGLOBIN A1c% 5.8 % (4.27-6.07)
[2022-03-12 13:31] LABS: CREATININE,URINE 131.8 mg/dL; MICROALBUMIN,URINE 0.4 mg/dL (0-300.0)
== END 2022-03-12 08:08 | disposition home or self-care (01) ==
LOC: LAB.N 08:07
PROVIDERS: ATTEND Internal Medicine
DX: F90.9 Attention-deficit hyperactivity disorder, unspecified type (principal); Z79.899 Other long term (current) drug therapy
CPT/HCPCS: 36415; 80050; 80061; 82043; 82570; 83036; 83721

== ENCOUNTER 2022-04-03 09:55 | Outpatient (CLI) | payer MEDICAID ==
[2022-04-03 10:02] LABS: MUDS CUTOFF CONCENTRATIONS CUTOFF CONC BELOW:
[2022-04-03 12:49] LABS: AMPHETAMINE SCREEN,URINE NEGATIVE (NEGATIVE); BARBITURATE SCREEN,UR NEGATIVE (NEGATIVE); BENZODIAZEPINES SCREEN, URINE NEGATIVE (NEGATIVE); COCAINE SCREEN URINE NEGATIVE (NEGATIVE); METHADONE SCREEN, URINE NEGATIVE (NEGATIVE); METHAMPHETAMINES SCREEN, URINE NEGATIVE (NEGATIVE); OPIATE SCREEN, URINE NEGATIVE (NEGATIVE); OXYCODONE SCREEN, URINE NEGATIVE (NEGATIVE); PROPOXYPHENE SCREEN, URINE NEGATIVE (NEGATIVE); THC CANNABINOID SCREEN, URINE POSITIVE (NEGATIVE); TRICYCLIC ANTIDEPRESSANT,URINE NEGATIVE (NEGATIVE)
== END 2022-04-03 09:56 | disposition home or self-care (01) ==
LOC: LAB.N 09:55
PROVIDERS: ATTEND Internal Medicine
DX: F15.21 Other stimulant dependence, in remission (principal)
CPT/HCPCS: 80306

== ENCOUNTER 2022-05-16 15:07 | Outpatient (CLI) | payer MEDICAID ==
--- NOTE | 2022-05-16 16:48 | XRAY Report ---
PROCEDURE: Toe(s) LT INDICATIONS: TOE PX TECHNIQUE: 3 views of the third toe(s) acquired. COMPARISON: None FINDINGS: Bones: No fractures or dislocations. No suspicious bony lesions. Soft tissues: No suspicious soft tissue densities. IMPRESSION: No gross acute third toe fracture or dislocation. No gross soft tissue abnormalities. Reviewed by: Jesse Mak MD on 05/16/2022 4:47 PM PST Approved by: Jesse Mak MD on 05/16/2022 4:47 PM PST Station ID: [id number]
== END 2022-05-16 15:08 | disposition home or self-care (01) ==
LOC: DI 15:07
PROVIDERS: ATTEND Nurse Practitioner
DX: S99.922A Unspecified injury of left foot, initial encounter (principal)
CPT/HCPCS: 73660

== ENCOUNTER 2022-08-28 08:48 | Emergency (ER) | payer MEDICAID ==
--- NOTE | 2022-08-28 09:47 | XRAY Report ---
PROCEDURE: Ankle 3 View LT INDICATIONS: Trauma TECHNIQUE: 3 views of the ankle were acquired. COMPARISON: 01/23/2014 FINDINGS: Bones: Tiny soft tissue density projects adjacent to the medial margin of the distal left fibula. Ot herwise, no acute fractures or dislocations. Ankle mortise is normally aligned. No suspicious bony lesions. Soft tissues: No substantial tibiotalar joint effusion. Achilles tendon appears normal. Moderate la teral malleolus soft tissue edema. Diffuse soft tissue swelling of the left ankle. IMPRESSION: Tiny density projecting in the soft tissues over the medial aspect of the distal left fi bula which may represent a tiny avulsion fracture fragment. Otherwise, no acute fracture or dislocati on. Moderate soft tissue swelling of the left ankle. If there is persistent clinical concern for a radiographically occult fracture, recommend immobilizat ion and repeat imaging in 10 to 14 days. Reviewed by: Jonathan Saravia MD on 08/28/2022 9:46 AM PST Approved by: Jonathan Saravia MD on 08/28/2022 9:46 AM PST Station ID: [id number]
--- NOTE | 2022-08-28 10:28 | ED Physician Documentation ---
PD HPI LOWER EXT INJURY - Stated complaint Stated Complaint: FALL,L FOOT PX - Chief complaint Chief Complaint: Trauma Ext - History obtained from History obtained from: Patient - Additional information Additional information: The patient comes to the emergency department with chief complaint of left ankle pain and swelling after stumbling on the stairs yesterday. He states that he twisted his left ankle and that he has had increasing pain and swelling since. He has been bearing weight on it. He denies any other injuries. He took ibuprofen and a tablet of his 's oxycodone last night and that helped some but did not completely take the pain away. No prior injuries. No other complaints at this time PD PAST MEDICAL HISTORY - Past Medical History Past Medical History: Yes Cardiovascular: High cholesterol Respiratory: None Neuro: None Endocrine/Autoimmune: None GI: GERD, GI bleed, Other : Retention HEENT: Chronic sinusitis Psych: Anxiety, Bipolar disorder, Panic attacks, ADD/ADHD, Post traumatic stress disorder, Obsessive compulsive disorder Musculoskeletal: None Derm: None - Past Surgical History Past Surgical History: Yes General: Bowel surgery Ortho: Other - Present Medications Home Medications: Ambulatory Orders Medication Instructions Recorded Confirmed ARIPiprazole [Aripiprazole Odt] 10 mg ORAL DAILY 08/28/22 08/28/22 HYDROcod/ACETAM 5/325 [[place] 5/325] 1 - 2 tablet PO Q6H PRN #14 tablet 08/28/22 OLANZapine [Zyprexa] 20 mg PO HS 08/28/22 08/28/22 buPROPion HCL [Bupropion HCl Sr] 200 mg PO DAILY 08/28/22 08/28/22 hydrOXYzine HCL [Hydroxyzine HCl] 25 mg PO TID PRN 08/28/22 08/28/22 - Allergies Allergies/Adverse Reactions: Allergies Allergy/AdvReac Type Severity Reaction Status Date / Time No Known Drug Allergies Allergy Verified 08/28/22 09:21 - Social History Does the pt smoke?: Yes Smoking Status: Current every day smoker Does the pt drink ETOH?: No Does the pt have substance abuse?: Yes Substance Use and Type: Marijuana - Immunizations Immunizations are current?: Yes Immunizations: TDAP >10years/unknown - POLST Patient has POLST: No POLST Status: Full Code PD ED PE NORMAL - Vitals Vital signs reviewed: Yes - General General: Alert and oriented X 3, No acute distress - HEENT HEENT: Atraumatic, PERRL, EOMI, Moist mucous membranes - Neck Neck: Supple, no meningeal sign - Cardiac Cardiac: Strong equal pulses - Respiratory Respiratory: No respiratory distress - Derm Derm: Normal color, Warm and dry, No rash - Extremities Extremities: No deformity, Other (Moderate edema over medial and lateral malleoli, left ankle. Moderately limited range of motion, secondary to pain. Tenderness palpation over both malleoli. No deformity.) - Neuro Neuro: Alert and oriented X 3, No motor deficit, No sensory deficit - Psych Psych: Normal mood, Normal affect Results - Vitals Vitals: Vital Signs - 24 hr 08/28/22 09:18 Temperature 36.3 C L Heart Rate 99 Respiratory 16 Rate Blood Pressure 136/95 H O2 Saturation 99 Oxygen O2 Source Room air - Rads (name of study) Left ankle x-ray series Radiology: Final report received, See rad report (Possible, very tiny density, possible avulsion. No other fracture.) PD Medical Decision Making - ED course Complexity details: reviewed results, re-evaluated patient, considered differ ential, d/w patient ED course: Patient was worked up with x-ray series, which showed a very tiny density which could represent avulsion. I felt most likely, the patient had sprained his ankle and Given the minimal findings on x-ray, I felt an air splint would be most appropriate, along with nonweightbearing and crutches. This was placed. I have spoke with the patient and his regarding nonweightbearing status until the patient can bear weight, using the splint, without pain. We discussed the usual indications for return. Departure - Departure Disposition: 01 Home, Self Care Clinical Impression: Ankle sprain Qualifiers: Encounter type: initial encounter Involved ligament of ankle: unspecified ligament Laterality: left Qualified Code(s): S93.402A - Sprain of unspecified ligament of left ankle, initial encounter Condition: Stable Instructions: ED Sprain Ankle W X Ray Prescriptions: HYDROcod/ACETAM 5/325 [[place] 5/325] 1 - 2 tablet PO Q6H PRN #14 tablet PRN Reason: Pain Comments: You have a bad sprain, which will take several weeks to heal. Initially, you should wear the splint and be on crutches so that you give your ankle arrest to allow it some time to heal. You should use the crutches until you can bear weight on the ankle without it being painful or flaring up. You should wear the splint while walking until you get to the point where you not have pain or "wobbliness" in your ankle with walking. You may take ibuprofen and prop the ankle up and apply ice packs to help with the pain and swelling. If you need something stronger for breakthrough pain for these first few days, you may take the stronger pain medication that has been prescribed for you. The prescription for this has been electronically transmitted to [facility] in [place] at your request. Please follow-up with your doctor for any further concerns.
[2022-08-28 10:55] VITALS: BP 119/83
== END 2022-08-28 11:09 | disposition home or self-care (01) ==
LOC: ED 08:48
DX: S93.402A Sprain of unspecified ligament of left ankle, initial encounter (principal); W10.9XXA Fall (on) (from) unspecified stairs and steps, initial encounter; F17.200 Nicotine dependence, unspecified, uncomplicated
CPT/HCPCS: 99283

== ENCOUNTER 2023-02-13 09:29 | Emergency (ER) | payer MEDICAID ==
[2023-02-13 09:42] VITALS: BP 121/82; O2SAT 97
--- NOTE | 2023-02-13 10:00 | ED Physician Documentation ---
History of Present Illness - Stated complaint Stated Complaint: MALE - Chief complaint Chief Complaint: General - History obtained from History obtained from: Patient - History of Present Illness Timing: Yesterday Pain level max: 4 Pain level now: 4 - Additonal information Additional information: 42-year-old male presents to the emergency department complaining of left testicular pain. He states that this started yesterday and is gradually orsened. Complains of a dull aching feeling. Has not had similar symptoms previously. No changes in sexual partners. Monogamous with his . No STD exposure. No discharge from the penis. No skin changes. He states it is worse with palpation and movement. Review of Systems Constitutional: denies: Fever, Chills Respiratory: denies: Cough GI: denies: Abdominal Pain, Vomiting, Diarrhea : reports: Dysuria (States mild dysuria this morning.). denies: Frequency, Hesitancy Skin: denies: Rash Musculoskeletal: denies: Neck pain, Back pain Neurologic: denies: Headache PD PAST MEDICAL HISTORY - Past Medical History Past Medical History: Yes Cardiovascular: High cholesterol Respiratory: None Neuro: None Endocrine/Autoimmune: None GI: GERD, GI bleed, Other : Retention HEENT: Chronic sinusitis Psych: Anxiety, Bipolar disorder, Panic attacks, ADD/ADHD, Post traumatic stress disorder, Obsessive compulsive disorder Musculoskeletal: None Derm: None - Past Surgical History Past Surgical History: Yes General: Bowel surgery Ortho: Other - Present Medications Home Medications: Ambulatory Orders Medication Instructions Recorded Confirmed ARIPiprazole [Aripiprazole Odt] 10 mg ORAL DAILY 08/28/22 02/13/23 OLANZapine [Zyprexa] 20 mg PO HS 08/28/22 02/13/23 buPROPion HCL [Bupropion HCl Sr] 200 mg PO DAILY 08/28/22 02/13/23 Atomoxetine HCl [Strattera] 40 mg PO DAILY 02/13/23 02/13/23 Rizatriptan Benzoate [Rizatriptan] 10 mg PO DAILY PRN 02/13/23 02/13/23 levoFLOXacin [Levofloxacin] 500 mg PO DAILY #10 tablet 02/13/23 nadoloL [Corgard] 40 mg PO DAILY 02/13/23 02/13/23 - Allergies Allergies/Adverse Reactions: Allergies Allergy/AdvReac Type Severity Reaction Status Date / Time No Known Drug Allergies Allergy Verified 02/13/23 09:38 - Social History Does the pt smoke?: Yes Smoking Status: Current every day smoker Does the pt drink ETOH?: No Does the pt have substance abuse?: Yes - Immunizations Immunizations are current?: Yes Immunizations: TDAP >10years/unknown - POLST Patient has POLST: No POLST Status: Full Code PD ED PE NORMAL - Vitals Vital signs reviewed: Yes - General General: Alert and oriented X 3, No acute distress - HEENT HEENT: Moist mucous membranes - Neck Neck: Supple, no meningeal sign - Cardiac Cardiac: RRR, Strong equal pulses - Respiratory Respiratory: No respiratory distress, Clear bilaterally - Abdomen Abdomen: Soft, Non tender, Non distended - Derm Derm: Warm and dry - Extremities Extremities: Other (Mild tenderness to palpation over the right testicle wall, normal lie. Normal cremasteric reflex. The tenderness is mostly over the epididymis. Otherwise normal exam. No lymphadenopathy.) - Neuro Neuro: Alert and oriented X 3 - Psych Psych: Normal mood, Normal affect Results - Vitals Vitals: Vital Signs - 24 hr 02/13/23 09:34 Temperature 36.5 C Heart Rate 80 Respiratory 16 Rate Blood Pressure 121/82 H O2 Saturation 97 Oxygen O2 Source Room air - Labs Labs: Laboratory Tests 02/13/23 09:53 Urine Color YELLOW Urine Clarity CLEAR Urine pH 7.0 Ur Specific [place] 1.020 Urine Protein NEGATIVE Urine Glucose (UA) NEGATIVE Urine Ketones NEGATIVE Urine Occult Blood NEGATIVE Urine Nitrite NEGATIVE Urine Bilirubin NEGATIVE Urine Urobilinogen 0.2 (NORMAL) Ur Leukocyte Esterase NEGATIVE Ur Microscopic Review NOT INDICATED Urine Culture Comments NOT INDICATED PD Medical Decision Making - ED course Complexity details: reviewed results, re-evaluated patient, considered differential, d/w patient ED course: No acute findings on urinalysis. Ultrasound is consistent with epididymitis. We will treat with Levaquin. He does not have any risk factors for STDs. No penile discharge. No evidence of torsion. On follow-up with his doctor for further care. Patient counseled regarding signs and symptoms for which I believe and urgent re-evaluation would be necessary. Patient with good understanding of and agreement to plan and is comfortable going home at this time This document was made in part using voice recognition software. While efforts are made to proofread this document, sound alike and grammatical errors may occur. Departure - Departure Disposition: 01 Home, Self Care Clinical Impression: Epididymitis Condition: Good Instructions: ED Epididymitis Follow-Up: your,doctor in 1 week [Other] Prescriptions: levoFLOXacin [Levofloxacin] 500 mg PO DAILY #10 tablet Comments: Your prescriptions were sent to [facility] in [place]. Please take all antibiotics until gone. Please follow-up with your doctor for further care. Your ultrasound is consistent with epididymitis today. Forms: PCP List Discharge Date/Time: 02/13/23 12:48
[2023-02-13 10:01] LABS: BILIRUBIN,URINE NEGATIVE (NEGATIVE); GLUCOSE, URINE (UA) NEGATIVE (NEGATIVE); KETONES,URINE (UA) NEGATIVE (NEGATIVE); LEUKOCYTE ESTERASE, URINE NEGATIVE (NEGATIVE); NITRITE,URINE NEGATIVE (NEGATIVE); OCCULT BLOOD,URINE NEGATIVE (NEGATIVE); PROTEIN,URINE NEGATIVE (NEGATIVE); UROBILINOGEN,URINE 0.2 (NORMAL) E.U./dL (NORMAL)
[2023-02-13 10:05] LABS: CLARITY,URINE CLEAR (CLEAR)
--- NOTE | 2023-02-13 13:23 | Ultrasound Report ---
PROCEDURE: Testicle w/Doppler INDICATIONS: L testicle pain TECHNIQUE: Real-time scanning was performed of the scrotum and testicles, with image documentation. Color and p ulse Doppler interrogation was performed of both testicles. COMPARISON: None. FINDINGS: Right: Testicle is normal in size at 5.3 x 3.2 x 2.5 cm, and homogenous in echotexture. Epididymis is normal in overall size and morphology. No hydrocele or varicoceles. Overlying scrotal skin is no rmal in thickness. Left: Testicle is normal in size at 5.3 x 3.6 x 2.3 cm, and homogeneous in echotexture. Epididymis is normal in overall size and morphology, with increased vascularity. No hydrocele or varicoceles. Overlying scrotal skin is normal in thickness. Doppler: Color and pulse Doppler demonstrate normal and symmetric arterial flow in both testicles. IMPRESSION: Increased vascularity within the left epididymis, concerning for epididymitis. No evidence of orchiti s. Reviewed by: Adan Aquino on 02/13/2023 1:22 PM PDT Approved by: Adan Aquino on 02/13/2023 1:22 PM PDT Station ID: [id number]
== END 2023-02-13 12:48 | disposition home or self-care (01) ==
LOC: ED 09:29
DX: N45.1 Epididymitis (principal); E78.00 Pure hypercholesterolemia, unspecified; F17.200 Nicotine dependence, unspecified, uncomplicated; Z79.899 Other long term (current) drug therapy
CPT/HCPCS: 81001; 81003; 87086; 93975; 99283; 99284

== ENCOUNTER 2023-03-12 12:32 | Outpatient (CLI) | payer MEDICAID ==
[2023-03-12 17:54] LABS: BASOPHILS % (AUTO) 0.9 %; EOSINOPHILS # (AUTO) 0.1 10^3/uL (0.0-0.7); EOSINOPHILS % (AUTO) 1.5 %; HCT - HEMATOCRIT 44.9 % (42.0-52.0); HGB - HEMOGLOBIN 14.5 g/dL (14.0-18.0); LYMPHOCYTES # (AUTO) 1.6 10^3/uL (1.5-3.5); MEAN CORPUSCULAR HEMOGLOBIN 27.5 pg (27.0-31.0); MEAN CORPUSCULAR HGB CONC 32.3 g/dL (32.0-36.0); MEAN PLATELET VOLUME 10.8 fL (7.4-11.4); MONOCYTES # (AUTO) 0.4 10^3/uL (0.0-1.0); MONOCYTES % (AUTO) 9.4 %; NEUTROPHILS # (AUTO) 2.6 10^3/uL (1.5-6.6); PLT - PLATELET COUNT 177 10^3/uL (130-450); RED BLOOD COUNT 5.28 10^6/uL (4.70-6.10); RED CELL DISTRIBUTION WIDTH 12.5 % (12.0-15.0); WHITE BLOOD COUNT 4.7 x10^3/uL (4.8-10.8)
[2023-03-12 18:18] LABS: ALBUMIN 4.8 g/dL (3.2-5.5); ALKALINE PHOSPHATASE 52 IU/L (42-121); ALT ALANINE AMINOTRANSFERASE 22 IU/L (10-60); AST ASPARTATE AMINOTRANSFERASE 20 IU/L (10-42); BILIRUBIN,TOTAL 0.5 mg/dL (0.2-1.0); BUN - BLOOD UREA NITROGEN 12 mg/dL (6-20); CALCIUM 9.7 mg/dL (8.5-10.3); CARBON DIOXIDE - CO2 32 mmol/L (21-32); CHLORIDE 102 mmol/L (101-111); CHOLESTEROL 179 mg/dL; CREATININE 0.9 mg/dL (0.6-1.3); GFR - MDRD 93 (>89); GLUCOSE 95 mg/dL (74-104); HDL CHOLESTEROL 36 mg/dL; LDL CHOLESTEROL,CALCULATED 113 mg/dL; LDL/HDL RATIO 3.1 (<3.6); POTASSIUM 3.9 mmol/L (3.5-4.5); SODIUM 138 mmol/L (135-145); TOTAL PROTEIN 7.2 g/dL (6.4-8.9); TRIGLYCERIDES 149 mg/dL (48-352); VLDL CHOLESTEROL 30 mg/dL
[2023-03-12 18:33] LABS: THYROID STIMULATING HORMONE 0.82 uIU/mL (0.34-5.60)
== END 2023-03-12 12:33 | disposition home or self-care (01) ==
LOC: LAB.N 12:32
PROVIDERS: ATTEND Family Medicine
DX: R55 Syncope and collapse (principal); F31.81 Bipolar II disorder; F90.9 Attention-deficit hyperactivity disorder, unspecified type; F25.1 Schizoaffective disorder, depressive type; F17.210 Nicotine dependence, cigarettes, uncomplicated
CPT/HCPCS: 36415; 80050; 80061; 83721

== ENCOUNTER 2023-08-14 13:19 | Outpatient (CLI) | payer MEDICAID ==
--- NOTE | 2023-08-14 14:39 | Sleep Patient Instructions ---
Sleep Center Visit Summary - Patient Visit Information Reason for Visit: Initial consult for evaluation of sleep disordered breathing and other sleep issues. - Patient Instructions Instructions Attached: Sleep Study Home Monitor Additional Instructions: You will be completing a sleep study, either an in-lab polysomnography (PSG) or home sleep study (HST). You will follow-up in the sleep care office after the sleep study is completed to hear the results and talk about therapy, if needed. You will be called by our office staff to schedule this appointment, but you may contact us with any questions. - Clinic Information Contact: [facility] [address] [place] [address] [email or web address] T: [phone]
--- NOTE | 2023-08-14 14:45 | SLEEP CARE CONSULTATION ---
Information from patient questionnaire entered by Naya Alves. I have reviewed and concur with the information entered by Naya Alves. This document represents the service I personally performed and the decisions made by me, Gladys Frey ARNP. History of Present Illness Service Date and Time: 08/14/2023 1319 Reason for Visit: New patient Chief Complaint: reports: Unrefreshed sleep, Snoring, Frequent awakenings at night Date of Onset: WHILE Usual bedtime: 4PM Snores at night: No Sleeps alone due to snoring: Yes (will sleep on couch occasionally) Number of times waking at night: 4-5 Reasons for waking at night: reports: Snoring, Other (unknown reasons). denies: Choking, Gasping for air Toss, Turn, or Twitch while sleeping: Yes Recalls having dreams: No Usually gets out of bed at: 6AM 9AM WEEKENDS Feels refreshed in the morning: No (sometimes he does) Morning headache: Yes (3-4 days a week; sometimes they don't go away) Sleepy or fatigued during the day: Yes (some unintentional naps when watching TV) Ever fallen asleep while driving: No Takes day naps: No Dreams during day naps: No Prior sleep studies: No Additional HPI information: I had the pleasure of seeing DINA HAYWARD today regarding the possibility of him having a sleep disorder. His current complaints are frequent night awakenings, snoring and unrefreshed sleep. He says he does not sleep well at night and his snoring is "getting really bad". His primary doctor is trying to figure out why he had a "dizzy spell and blacked out". He says he can go to sleep easily but will wake up several times a night and often have a hard time returning to sleep. He does not always feel refreshed in the morning. He has had times when he wakes up with a headache and sometimes they do not go away. He also has a history of migraines. He has several family members who have sleep apnea and are using a PAP machine. 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 - Parasomnia Symptoms Ever been unable to move upon waking from sleep: No Walks in sleep: No Talks in sleep: Yes (sometimes) Ever acted out dreams in sleep: No Ever felt weak in the knees when startled or emotional: No Bothered by creepy, crawly, restless sensations in legs: Yes (sometimes feet will just move a lot and keep him from sleeping) Problems with memory or concentration: Yes (little bit of both; has ADHD) Subjective Initial [place] Sleepiness Scale score: 11 (08/14/23) Past Medical History Past Medical History: reports: Anxiety, Depression, Mood disorder (PTSD), Attention deficit, Other (migraines) Social History The patient's occupation is a [employer]. Patient is Single and lives in [place]. Have you smoked in the past 12 months: Yes Cigarettes per day (20/pack): 30 Years of smokin Quit date: 2022 Smoking Pack Years: 37.5 Alcohol use: No Caffeine use: Yes Caffeine amount and frequency: coffee daily and then every now and then for soda Family History Family history of sleep disordered breathing: Yes Family Hx Sleep Apnea: Mother: Snoring, Sleep apnea - Treated, Father: Snoring, Sleep apnea - Treated, Grandparent: Snoring, Sleep apnea - Treated Allergies and Home Medications Known drug allergies: No Drug allergies reviewed: Yes Home medication list reviewed: Yes (as listed, changing to Vyvanse starting after today) Allergy and home medication list: Allergies No Known Drug Allergies Allergy (Verified 08/12/23 10:23) Home Medications Medication Instructions Recorded Confirmed Last Taken Type OLANZapine [Zyprexa] 20 mg PO HS 08/28/22 08/14/23 Unknown History Aripiprazole [Abilify] See Rx Instructions .ROUTE .COMPLEX 08/14/23 08/14/23 Unknown History Dextroamphetamine/Amphetamine See Rx Instructions .ROUTE .COMPLEX 08/14/23 08/14/23 Unknown History [Adderall 10 mg Tablet] cloNIDine [Catapres] See Rx Instructions .ROUTE .COMPLEX 08/14/23 08/14/23 Unknown History Review of Systems Weight gain over past 5 years: 170 Weight loss over past 5 years: 20 Cardiovascular: denies: high blood pressure Gastrointestinal: denies: heartburn Neurological: reports: headaches (hx of migraines) Psychiatric: reports: anxiety, depression, mood disorder Ear/Nose/Throat: denies: tonsillectomy Physical Exam Vital signs obtained and entered by: NAYA Zepeda MA Blood Pressure: 124/72 (LEFT ARM) Cuff size: regular Heart Rate: 79 O2 Saturation: 96 Height: 6 ft Weight: 272 lb Body Mass Index: 36.8 BMI Classification: Obese Neck circumference: 16.5 Mouth and throat: narrow oropharynx Soft palate: long Hard palate: arched Uvula: edematous Uvula visualization: 25% Mallampati Class III Tongue: enlarged in size with teeth garcía on lateral edges Tonsils: 1+ Neck: normal w/o lymphadenopathy or thyromegaly Heart: regular rate and rhythm Lungs: clear bilaterally Impression and Plan 1. Suspected Obstructive Sleep Apnea-Hypopnea Syndrome, as suggested by a history of loud and irregular snoring, morning headache, frequent awakening during the night, unrefreshed sleep, cognitive impairment, and excessive daytime sleepiness. Narrow oropharynx and obesity are common predisposing factors for obstructive sleep apnea-hypopnea syndrome. I recommend proceeding to polysomnography to confirm the diagnosis and to assess severity. If the patient has significant sleep disordered breathing, a manual CPAP titration study will also be performed to find the optimal treatment pressure. I informed the patient of what the sleep studies involve and after some discussion, obtained agreement to proceed. The pathophysiology of obstructive sleep apnea-hypopnea syndrome was discussed with the patient and health risks of cardiovascular and cerebrovascular disease if not treated. Risks of drowsy driving discussed in detail and patient advised to avoid long distance driving and to dross puller at the first sign of drowsiness. Patient agreed to plan. * Schedule polysomnography +- manual CPAP titration study and return in 1-2 weeks after the study to discuss result and initiate therapy. * Avoid long distance driving or driving when feeling sleepy. * Avoid alcohol, sedative and muscle relaxant around bedtime. * Attempt to lose weight. * Review instructions provided by trained office staff on how to prepare for the sleep study. * Return for follow-up after sleep study completed. Counseling Topics: Weight loss health impact Plan: PSG/HST Visit Type: In Office Time Spent with Patient (minutes): 30 Provider Statement: I spent 100% of the Face to Face Visit with the patient with greater than 50% spent counseling the patient and coordination of care.
[2023-08-14 14:51] VITALS: BP 124/72; O2SAT 96
== END 2023-08-14 13:20 | disposition home or self-care (01) ==
LOC: SC 13:19
PROVIDERS: ATTEND Nurse Practitioner Family
DX: G47.10 Hypersomnia, unspecified (principal); R06.83 Snoring; R51.9 Headache, unspecified; G47.8 Other sleep disorders; R41.89 Other symptoms and signs involving cognitive functions and awareness; E66.9 Obesity, unspecified; Z68.36 Body mass index [BMI] 36.0-36.9, adult; F17.210 Nicotine dependence, cigarettes, uncomplicated
CPT/HCPCS: 99203; 99212

== ENCOUNTER 2023-08-24 08:00 | Outpatient (CLI) | payer MEDICAID | END 2023-08-24 23:59 | disposition home or self-care (01) | LOC: LAB.N 08:00 | PROVIDERS: ATTEND Physician Assistant Medical | DX: N30.00 Acute cystitis without hematuria (principal) | CPT/HCPCS: 87086 ==

== ENCOUNTER 2023-09-21 19:17 | Outpatient (CLI) | payer MEDICAID | END 2023-09-21 19:18 | disposition home or self-care (01) | LOC: SC 19:17 | PROVIDERS: ATTEND Nurse Practitioner Family | DX: G47.31 Primary central sleep apnea (principal) | CPT/HCPCS: 95810 ==

== ENCOUNTER 2023-10-03 09:27 | Outpatient (CLI) | payer MEDICAID ==
--- NOTE | 2023-10-03 09:53 | SLEEP CARE CONSULTATION ---
Information from patient questionnaire entered by Ranjana Alves. I have reviewed and concur with the information entered by Ranjana Alves. This document represents the service I personally performed and the decisions made by , Gladys Frey ARNP. History of Present Illness Service Date and Time: 10/03/2023 0940 Initial [place] Sleepiness Scale score: 11 (08/14/23) Current [place] Sleepiness Scale score: 12 (10/03/23) Additional HPI information: DINA HAYWARD returns for follow up and results of the recently performed polysomnography. The sleep study showed very severe central sleep apnea with an average AHI of 63.3 and lilian oxygen saturation of 83%. I explained the pathophysiology behind obstructive sleep apnea. We then spent quite a bit of time discussing different treatment options. For mild obstructive sleep apnea, surgery and oral appliance are alternatives to nasal CPAP therapy but in moderate or severe cases, nasal CPAP is the most effective and reliable treatment. I reviewed the impact of weight changes on sleep apnea and strongly recommended losing weight. After some discussion, the patient opted to go with the nasal CPAP therapy. A manual titration study will be ordered to find optimal pressure with office adjustments. I explained how CPAP machine works and what to expect when using the machine. Using CPAP every night in order to get used to it was emphasized. Patient counseled not drink alcohol less than 4 hours before bedtime as it can increase snoring and apnea. Patient was cautioned about risks of drowsy driving until sleepiness symptoms resolve. Patient denies drowsy driving, he does not drive anymore. Sleep Study - Results Type of Sleep Study: Polysomnography (COMPLETED 09/21/23) Prior sleep studies: No Polysomnography/Home Sleep Study results: IMPRESSION: The quality of the study is good. The patient had normal sleep efficiency. The sleep architecture was abnormal for sleep fragmentation and reduced amount of time spent in slow wave sleep (N3). Respiratory monitoring showed very severe central sleep apnea-hypopnea (AHI = 63.3) associated with frequent arousals, oxyhemoglobin desaturation and mild hypoxia (lilian oxygen saturation of 83%). The respiratory events occurred independently of body position but predominantly during non-REM sleep (supine AHI = 65.0; non-supine = 60.52). Snore was light in intensity. There was no significant periodic leg movement of sleep. Cardiac rhythm was normal sinus rhythm with occasional premature ventricular contractions. No abnormal behavior (parasomnia) observed during the night. Allergies and Home Medications Known drug allergies: No Drug allergies reviewed: Yes Home medication list reviewed: Yes (Vyvanse 30 mg daily replaced Adderall) Allergy and home medication list: Allergies No Known Drug Allergies Allergy (Verified 10/01/23 08:47) Home Medications Medication Instructions Recorded Confirmed Last Taken Type OLANZapine [Zyprexa] 20 mg PO HS 08/28/22 10/03/23 Unknown History Aripiprazole [Abilify] See Rx Instructions .ROUTE .COMPLEX 08/14/23 10/03/23 Unknown History cloNIDine [Catapres] See Rx Instructions .ROUTE .COMPLEX 08/14/23 10/03/23 Unknown History Lisdexamfetamine Dimesylate See Rx Instructions .ROUTE .COMPLEX 10/03/23 10/03/23 Unknown History [Vyvanse] Review of Systems Review of systems same as previous: Yes (NO CHANGE) Physical Exam Vital signs obtained and entered by: RANJANA Zepeda MA Blood Pressure: 114/84 (RIGHT ARM) Cuff size: regular Heart Rate: 77 O2 Saturation: 100 Height: 6 ft Weight: 268 lb 3.2 oz Body Mass Index: 36.3 BMI Classification: Obese Impression and Plan 1. Central Sleep Apnea-Hypopnea Syndrome, very severe, with lowest oxygen saturation of 83%. Obviously this is the cause of the patients symptoms of unrefreshed sleep, and excessive daytime sleepiness. Positive pressure therapy could benefit anxiety, depression, mood disorder (PTSD), attention deficit and migraines. As mentioned above, the patient will be started on nasal autoCPAP therapy. A manual titration study will be completed to find optimal treatment pressure. Compliance guidelines also reviewed. He voiced understanding. 2. Hypoxemia, mild, with a lilian oxygen saturation of 83% and 59.7 minutes spent under 90%. The baseline oxygen saturation was normal with an average oxygen saturation of 90%. 3. Obesity, unspecified. Currently patients BMI is 36.3. Obesity increases the risk of apnea, CPAP pressure requirements and overall health risks especially cardiovascular and diabetes. Thus patient is advised to lose weight. * Titration study. * Attempt to lose weight. * Avoid alcohol consumption near bedtime. * The patient is again cautioned about driving until sleepiness completely resolves. * Return after titration study to be set up on PAP therapy. Counseling Topics: Weight loss health impact Follow up with Sleep Care in: other (after titration study) Plan: Titration study Visit Type: In Office Time Spent with Patient (minutes): 21 Provider Statement: I spent 100% of the Face to Face Visit with the patient with greater than 50% spent counseling the patient and coordination of care.
--- NOTE | 2023-10-03 09:53 | Sleep Patient Instructions ---
Sleep Center Visit Summary - Patient Visit Information Reason for Visit: Sleep study follow-up - Patient Instructions Additional Instructions: You will be completing a titration sleep study in our sleep lab where you will be sleeping with the CPAP machine on and we will be adjusting your pressures to find your optimal pressure settings. Once we have your results back, we will call you and schedule a follow up to go over the results, you may contact us with any questions or issues as needed. - Clinic Information Contact: [facility] [address] [place] [id number] [email or web address] T: [phone]
[2023-10-03 09:55] VITALS: BP 114/84; O2SAT 100
== END 2023-10-03 09:28 | disposition home or self-care (01) ==
LOC: SC 09:27
PROVIDERS: ATTEND Nurse Practitioner Family
DX: G47.31 Primary central sleep apnea (principal); R09.02 Hypoxemia; E66.9 Obesity, unspecified; Z68.36 Body mass index [BMI] 36.0-36.9, adult
CPT/HCPCS: 99212; 99213

== ENCOUNTER 2023-11-06 20:30 | Outpatient (CLI) | payer MEDICAID | END 2023-11-06 20:31 | disposition home or self-care (01) | LOC: SC 20:30 | PROVIDERS: ATTEND Nurse Practitioner Family | DX: G47.31 Primary central sleep apnea (principal) | CPT/HCPCS: 95811 ==

== ENCOUNTER 2023-11-20 15:46 | Outpatient (CLI) | payer MEDICAID ==
--- NOTE | 2023-11-20 16:10 | Sleep Patient Instructions ---
Sleep Center Visit Summary - Patient Visit Information Reason for Visit: Titration study follow-up - Patient Instructions Instructions Attached: CPAP Additional Instructions: You are being started on CPAP therapy with pressure setting at 12-16 cmH2O. You will need to call the sleep care office to set up your follow up once you have your CPAP machine to check compliance and response to therapy at that time. You may call the office with any concerns about pressure feeling too low or too much for adjustment, if needed. You should contact DME supplier for any questions or concerns about mask or equipment. Please call office to schedule a follow up appointment in the sleep care office one month after obtaining new device. - Clinic Information Contact: [facility] [address] [place] [address] [email or web address] T: [phone]
--- NOTE | 2023-11-20 16:13 | SLEEP CARE CONSULTATION ---
Information from patient questionnaire entered by Naya Alves. I have reviewed and concur with the information entered by Naya Alves. This document represents the service I personally performed and the decisions made by , Gladys Frey ARNP. History of Present Illness Service Date and Time: 11/20/2023 154 Initial [place] Sleepiness Scale score: 11 (08/14/23) Current [place] Sleepiness Scale score: 10 (11/20/23) Additional HPI information: DINA HAYWARD returns for follow up of a manual CPAP titration study performed on 11/06/2023. Previous study done on 09/21/2023 showed very severe central sleep apnea with AHI 63.3. The patient was informed of the following polysomnography findings: CPAP was initiated at 5 cmH2O and titrated up to CPAP at 16 cmH2O. CPAP at 14 cmH2O appeared to be optimal (AHI of 1.2 per hour on the pressure). There was supine REM sleep on the pressure. Oxygen saturation was minimally low. Lower CPAP settings allowed frequent residual respiratory events The patient appeared to have tolerated positive airway pressure therapy very well. I explained how CPAP machine works and what to expect when using the machine. Using CPAP every night in order to get used to it was emphasized. Patient advised to put CPAP mask on before getting into bed so as not to fall asleep without CPAP. To assist acclimation to CPAP use, it could also be used for a short time during day while reading or watching TV. The patient was instructed to call the CPAP supplier to discuss any mechanical problem that may occur. If the mask given is uncomfortable or is difficult to keep on through the night even with adjustment, contact the CPAP supplier as many will replace with another mask style if notified before 30 days. If snoring or perceives is not getting enough air or too much air from the machine, notify this office. Patient does not drink alcohol. Patient was cautioned about risks of drowsy driving until sleepiness symptoms resolve. Patient denies drowsy driving. Sleep Study - Results Type of Sleep Study: Polysomnography (COMPLETED 09/21/23 TITRATION F/U) Prior sleep studies: No Polysomnography/Home Sleep Study results: IMPRESSION: The quality of the study is good. CPAP was initiated at 5 cmH2O and titrated up to CPAP at 16 cmH2O. CPAP at 14 cmH2O appeared to be optimal (AHI of 1.2 per hour on the pressure). There was supine REM sleep on the pressure. Oxygen saturation was minimally low. Lower CPAP settings allowed frequent residual respiratory events The patient appeared to have tolerated positive airway pressure therapy very well. The patients sleep efficiency was normal. The sleep architecture was relatively normal considering the first-night effect. There was no significant periodic leg movement of sleep. Cardiac rhythm was normal sinus rhythm without significant arrhythmia. No abnormal behavior (parasomnia) observed during the night. CONCLUSIONS and RECOMMENDATIONS: 1. Central sleep apnea (ICD-10 G47.31), very severe (AHI was 63.3), adequately controlled with CPAP at 14 cmH2O. CPAP therapy is, therefore, recommended at the pressure setting. AutoCPAP set between 12 and 16 cmH20 is also appropriate. Mask used was a [employer] VitThe Grommet full face mask size medium. Of note, the good response to CPAP suggests that the primary sleep-related breathing disorder is obstructive sleep apnea-hypopnea, rather than central sleep apnea. With BMI of 36.9 Kg/M2, weight loss is also recommended. Allergies and Home Medications Known drug allergies: No Drug allergies reviewed: Yes Home medication list reviewed: Yes (no changes) Allergy and home medication list: Allergies No Known Drug Allergies Allergy (Verified 11/20/23 10:00) Review of Systems Review of systems same as previous: Yes (NO CHANGE) Physical Exam Vital signs obtained and entered by: NAYA Zepeda MA Blood Pressure: 109/78 (LEFT ARM) Cuff size: regular Heart Rate: 90 O2 Saturation: 94 Height: 6 ft Weight: 267 lb Body Mass Index: 36.2 BMI Classification: Obese Impression and Plan 1. Central Sleep Apnea-Hypopnea Syndrome, very severe. He returns after titration study to be set up on therapy. Positive pressure therapy could benefit anxiety, depression, mood disorder (PTSD), attention deficit and migraines. The patient will be started on nasal autoCPAP therapy with pressure set at 12-16 cmH 2O. Compliance guidelines also reviewed. A copy of compliance guidelines will be given for reference at check out. He voiced understanding. 2. Obesity, unspecified. Currently patients BMI is 36.2. Obesity increases the risk of apnea, CPAP pressure requirements and overall health risks especially cardiovascular and diabetes. Thus patient is advised to lose weight. * Nasal auto CPAP therapy, pressure at 12-16 cm H2O. * Attempt to lose weight. * Avoid alcohol consumption near bedtime. * Avoid supine sleep until using CPAP. * The patient is again cautioned about driving until sleepiness completely resolves. * Return one month after CPAP obtained. I will assess response to therapy and compliance at that time. Counseling Topics: Weight loss health impact Prescriptions: Auto CPAP Plan: Start CPAP and compliance followup Visit Type: In Office Time Spent with Patient (minutes): 15 Provider Statement: I spent 100% of the Face to Face Visit with the patient with greater than 50% spent counseling the patient and coordination of care.
[2023-11-20 16:17] VITALS: BP 109/78; O2SAT 94
== END 2023-11-20 15:47 | disposition home or self-care (01) ==
LOC: SC 15:46
PROVIDERS: ATTEND Nurse Practitioner Family
DX: G47.31 Primary central sleep apnea (principal); E66.9 Obesity, unspecified; Z68.36 Body mass index [BMI] 36.0-36.9, adult
CPT/HCPCS: 99212

== ENCOUNTER 2024-01-30 11:25 | Outpatient (CLI) | payer MEDICAID ==
--- NOTE | 2024-01-30 12:04 | Sleep Patient Instructions ---
Sleep Center Visit Summary - Patient Visit Information Reason for Visit: First compliance follow-up - Patient Instructions Additional Instructions: You were here for follow up of CPAP therapy. You will be continued on CPAP therapy with pressure at 12-14 cmH2O. Please let us know if the pressure change is uncomfortable and we can make further adjustments of the pressure. You should follow up with sleep care in 1-2 months. You may contact us sooner for any questions or concerns. - Clinic Information Contact: [facility] [address] [place] [address] [email or web address] T: [phone]
--- NOTE | 2024-01-30 12:09 | SLEEP CARE CONSULTATION ---
Information from patient questionnaire entered by Naya Alves. I have reviewed and concur with the information entered by Naya Alves. This document represents the service I personally performed and the decisions made by , Gladys rFey ARNP. History of Present Illness Service Date and Time: 01/30/2024 1125 Previous diagnosis: Severe, Central Sleep Apnea-Hypopnea Syndrome AHI: 63.3 (11/06/2023) Reason for follow up: first compliance Equipment type: CPAP (RESMED Airsense 11 S/U 11/29/23) Equipment obtained from: Other ([facility]; getting supplies) Mask style: Full face Mask brand: Glisten (Vitera, medium cushion) Backup mask available: No Last cushion change: 2 months Prior sleep studies: No Type of Sleep Study: Polysomnography (COMPLETED 09/21/23 TITRATION F/U) HPI additional information: DINA HAYWARD was diagnosed to have very severe, AHI 63.3, central sleep apnea-hypopnea syndrome and returned today for CPAP therapy first compliance follow-up. Sleep Study - Results Type of Sleep Study: Polysomnography (COMPLETED 09/21/23 TITRATION F/U) Prior sleep studies: No CPAP Compliance Data - Data Reviewed with Patient Average duration of nightly device use: 4 HRS 54 MINS Compliance rate %: 43 (12/29/23-01/27/24) Current pressure setting (cmH2O): 12-16 (avg 14.2, max 14.8) Average residual AHI: 15.1 Central apnea: 11.2 Obstructive apnea: 1.3 Hypopnea: 0.9 Average large leak: 4.9 L/min Subjective Missed days of use due to: reports: illness (for a week), other (getting up with daughter and unable to cont using mask) Patient concerns: reports: dry mouth, nose, throat (DRY MOUTH SOMETIMES). denies: aerophagia, mask discomfort, air blowing in eyes, mask leak noise, condensation in mask/hose, nasal congestion, epistaxis Observed to snore while using device: No Current pressure setting perceived as: comfortable On therapy, patient: reports: sleeping better, awakening more refreshed, being more awake and alert during the day, more rested overall. denies: drowsiness while driving Initial [place] Sleepiness Scale score: 11 (08/14/23) Current [place] Sleepiness Scale score: 9 (01/30/24) Allergies and Home Medications Known drug allergies: No Drug allergies reviewed: Yes Home medication list reviewed: Yes (no changes) Allergy and home medication list: Allergies No Known Drug Allergies Allergy (Verified 01/30/24 11:29) Review of Systems Review of systems same as previous: Yes (NO CHANGE) Physical Exam Vital signs obtained and entered by: NAYA Zepeda MA Blood Pressure: 139/89 (RIGHT ARM) Cuff size: regular Heart Rate: 96 O2 Saturation: 98 Height: 6 ft Weight: 257 lb Weight change since last visit: 10 lb loss Body Mass Index: 34.8 BMI Classification: Obese Impression and Plan 1. Central Sleep Apnea-Hypopnea Syndrome, very severe, with fair treatment compl iance and fair apnea control with elevated residual AHI. On CPAP therapy, the patient has better sleep quality and is more rested overall. His compliance was affected when he was ill and unable to breathe through his nose making it difficult to use the CPAP. He also has had nights that he gets up with his toddler and ends up with getting a shorter night sleep. He has put the mask on 77% of the time in the last month but is not always making compliance of 4 hours or more. He states he is really trying to use the mask as much as he can. He did have a problem with one mask cushion breaking but he did have a backup. He is to reach out to his DME for supplies. The patients pressure will be changed to autoCPAP 12-14 cmH20 for elevation of residual AHI. Patient advised to contact me if pressure change is uncomfortable so that it can be adjusted. Goals for apnea control discussed. Patient's apnea severity and rationale for treatment to reduce apnea, improve sleep quality and reduce cardiovascular and cerebrovascular events was reviewed. I also reviewed the benefit of consistent device use of CPAP for depression/anxiety, migraines, mood disorder (PTSD) and attention deficit. 2. Obesity, unspecified. Currently patients BMI is 34.8. He has lost weight. Obesity increases the risk of apnea, CPAP pressure requirements and overall health risks especially cardiovascular and diabetes. Thus patient is advised to continue to try to lose weight. * Change auto CPAP pressure to 12-14 cmH2O * Notify me if snoring with mask or feeling that the pressure is too much or too little * Attempt to lose weight * Call this office if any problems using CPAP * Return for follow up in 1-2 months, or sooner if concerns arise Adjust device pressure to (cmH2O): 12-14 Counseling Topics: Spare mask, Weight loss health impact Follow up with Sleep Care in: 1-2 months Visit Type: In Office Time Spent with Patient (minutes): 20 Provider Statement: I spent 100% of the Face to Face Visit with the patient with greater than 50% spent counseling the patient and coordination of care.
[2024-01-30 12:15] VITALS: BP 139/89; O2SAT 98
== END 2024-01-30 11:26 | disposition home or self-care (01) ==
LOC: SC 11:25
PROVIDERS: ATTEND Nurse Practitioner Family
DX: G47.31 Primary central sleep apnea (principal); E66.9 Obesity, unspecified; Z68.34 Body mass index [BMI] 34.0-34.9, adult
CPT/HCPCS: 99212; 99213